=== PATIENT | female | born 1955 | race Caucasian/White ===

== ENCOUNTER 2019-07-25 01:19 | Outpatient (CLI) | payer BC, SELFPAY ==
[2019-07-24 16:24] VITALS: BMI 34.8
--- NOTE | ~2019-07-25 | BM_ITS ---
EXAMINATION: CCL bone marrow asp w bx diag DATE: 07/25/2019 11:04 INDICATION: Macrocytic anemia. TECHNIQUE: A time-out was performed to verify the patient's name, date of , and procedure to b e performed. The procedure including the risks, benefits, and alternatives was discussed with the pat ient. Risks discussed included bleeding and infection. The patient understood the risks and agreed to proceed. The skin overlying the right ilium was prepped and draped in usual sterile fashion. Anest hetic was administered with 1% lidocaine subcutaneously. Moderate sedation was achieved with 1 mg Liam sed IV and 50 mcg fentanyl IV. An 11 gauge needle was inserted into the ilium with fluoroscopic guid ance. Bone marrow was aspirated. An 8 gauge needle was then inserted into the ilium with fluoroscopic guidance. A core bone marrow biopsy was obtained. There were no immediate complications. Fluoroscopy exposure time was 0.0 minutes. The total number of images was 7. FINDINGS: Real-time fluoroscopy demonstrates a marker overlying the right posterior superior iliac sp ine. IMPRESSION: 1. Fluoro-guided bone marrow aspiration. 2. Fluoro-guided bone marrow core biopsy. Reviewed, dictated and finalized at location A. COMMUNICATIONS ENGINEER
[2019-07-25 09:10] LABS: Hemoglobin 8.6 g/dL (12.0-15.0); Mean Corpuscular HGB Conc 30.7 g/dl (32-36); Mean Corpuscular Hemoglobin 34.1 pg (26-34); Mean Corpuscular Volume 111.1 fl (80-100); Mean Platelet Volume 8.7 fl (7.4-10.4); Platelet Count Result 427 k/mm3 (150-375); Red Blood Count 2.52 M/mm3 (4.2-5.4); Red Cell Distribution Width 15.1 % (11.5-14.5); White Blood Count 6.1 K/mm3 (4.5-10.0)
[2019-07-25 09:27] LABS: INR 0.9; Prothrombin Time 11.8 Seconds (11.1-14.7)
[2019-07-25 10:07] VITALS: BP 121/51; PULSE 77; RESP 14; TEMP 37; O2SAT 99
--- NOTE | 2019-07-25 10:09 | WPDMODSED ---
Moderate Sedation Note-Pt Data Patient Data Diagnosis: Macrocytic anemia. Present Complaint: Macrocytic anemia. Procedure to be performed/Plan: Fluoro-guided bone marrow biopsy. Allergies Allergy/AdvReac Type Severity Reaction Status Date / Time iodine Allergy Unknown Unknown Verified 11/28/17 11:43 povidone Allergy Unknown Itching Verified 10/18/17 13:46 povidone-iodine Allergy Unknown Itching Verified 08/21/18 09:35 soap Allergy Unknown Itching Verified 10/18/17 13:46 Home Medications Medication Instructions Recorded Confirmed Type ascorbic acid (vitamin C) 1 g PO DAILY 07/22/19 07/24/19 History ferrous sulfate 324 mg PO DAILY 07/22/19 07/24/19 History lansoprazole 30 mg PO PRN PRN 07/22/19 07/24/19 History mv,Ca,ir,Zw-KE-plq-gel-ashley-PAB 3 cap PO DAILY 07/22/19 07/24/19 History [Body, Hair, Skin and Nails] Sedation/Anesthesia: No previous sedation/anesthesia problems (including family history). [facility] Family History Family History (Updated 12/03/17 @ 14:54 by DOCTOR UNKNOWN) Mother Patient's mother is Father Patient's father is , Onset Age: 97 Grandparent Family history of malignant neoplasm of breast in first degree relative Family history of malignant neoplasm Sibling Cerebrovascular accident Social History Social History Smoking status: Former smoker Second hand tobacco smoke exposure: No Smoking end date: 06/25/76 Alcohol intake: current Mod Sed Physical Exam Physical Exam Pre Procedural Exam: Normal: Lungs, Heart Rate, Heart Rhythm and Abdomen and Variation: Appearance (obese) and Airway (Mallampati class II.) Hours since solid foods: 12 Hours since liquid intake: 9 Internal Medicine - PN: Obj Da Vital Signs Vital Signs: Vital Signs - 24 hr 07/25/19 10:07 Temperature 37.0 C Pulse Rate 77 Respiratory Rate 14 Blood Pressure 121/51 L Pulse Oximetry 99 Labs CBC & Chem 7: 07/25/19 09:06 Labs: Laboratory Results - last 24 hr 07/25/19 07/25/19 09:06 09:06 WBC 6.1 RBC 2.52 L Hgb 8.6 L Hct 28.0 L MCV 111.1 H MCH 34.1 H MCHC 30.7 L RDW 15.1 H Plt Count 427 H MPV 8.7 PT 11.8 INR 0.9 ASA Classification/Sedation ASA Classification/Sedation ASA Class: II Emergent: No Risks: Risks, benefits and alternatives explained and patient/family accepted plan for sedation. Patient re-evaluated immediately prior to sedation.
[2019-07-25 10:40] VITALS: BP 120/68; PULSE 70; RESP 10; O2SAT 100
[2019-07-25 10:55] VITALS: BP 119/72; PULSE 68; RESP 16; O2SAT 100
[2019-07-25 11:10] VITALS: BP 115/64; PULSE 73; RESP 16
--- NOTE | 2019-07-25 11:48 | SUR.PHASEII ---
1120 pt discharged to home with , iv dc'd-cath tip intact, instructions reviewed with pt and , all questions answered, discharged home via wheelchair with to home.
== END 2019-07-25 01:20 | disposition home or self-care (01) ==
PROVIDERS: Radiology Diagnostic Radiology; PCP Internal Medicine; Referring Provider Internal Medicine Hematology & Oncology; Visit Provider Radiology Diagnostic Radiology
DX: D53.9 Nutritional anemia, unspecified (principal)
CPT/HCPCS: 36415; 38222; 85027; 85610; 88184; 88185; 88305; 88311; 88313; J2250; J3010; J7040

== ENCOUNTER 2019-08-29 09:24 | Outpatient (CLI) | payer BC, SELFPAY ==
--- NOTE | ~2019-08-29 | MR_ITS ---
EXAMINATION: MR knee LT wo con DATE: 08/29/2019 10:42 INDICATION: Internal derangement of the left knee presenting with anteromedial left knee pain. TECHNIQUE: Magnetic resonance imaging (MRI) of the left knee was performed without intravenous contra st. Sequences included coronal PD-weighted FSE, coronal PD-weighted FS FSE, sagittal T2-weighted FSE , sagittal PD-weighted FS FSE and axial PD weighted fat saturated FSE. COMPARISON: None. FINDINGS: Medial compartment: Medial meniscus is normal. Partial thickness cartilage loss along the anterior to central weightbeari ng medial femoral condyle with marrow edema along the medial rim which is more likely to represent rick ne contusion related to recent trauma rather than chondromalacia related subarticular edema. Lateral compartment: Small likely radial tear at the inner third of the lateral meniscal body. Partial-thickness cartilage loss with smooth chondral surface and without degenerative subchondral changes at the posterior weig htbearing lateral femoral condyle and lateral aspect of the lateral tibial plateau. This suggests is more preserved along the medial half of the lateral tibial plateau with partial-thickness along the m edial, central to posterior aspect of the lateral tibial plateau. Tiny focus of subarticular near the posterior rim. Patellofemoral compartment: Extensive severe cartilage loss along the patella with regions likely reaching full-thickness at the apical ridge and medial and lateral facets with scattered subarticular edema. Partial-thickness carti marito loss with smooth chondral surface along the lateral trochlea. Tiny focus of cortical irregularit y along the inferolateral aspect of the lateral trochlea. Small patellar marginal osteophytes are pre sent. Ligaments and tendons: Anterior and posterior cruciate ligaments are normal. Mild thickening of the proximal medial collater al ligament without significant surrounding edema to suggest acute injury this may represent mild sca rring related to chronic sprain. The fibular collateral ligament is normal. The extensor mechanism is normal. The visualized medial and lateral hamstring tendons as well as the iliotibial band are manas l. Fluid: Small amount of fluid in the lateral gutter of the suprapatellar pouch which remains within normal li mits. No loose osteochondral bodies identified. Osseous/other: Bone alignment is normal. No fracture or pathologic marrow replacing process. IMPRESSION: 1. Small radial tear at the body of the lateral meniscus. 2. Tricompartmental osteoarthritis, mild in the medial and lateral compartments and moderate severity in the patellofemoral compartment where there is extensive high-grade patellar chondromalacia. 3. Marrow edema along the medial side of the weightbearing medial femoral condyle and favor bone cont usion over chondromalacia related subarticular edema. 4. Thickening and mild increased signal of the proximal medial collateral ligament without surroundin g edema to suggest acute injury likely scarring related to chronic sprain. Reviewed, dictated and finalized at location A. ERY SACKER IMPRESSION: 1. Small radial tear at the body of the lateral meniscus. 2. Tricompartmental osteoarthritis, mild in the medial and lateral compartments and moderate severity in the patellofemoral compartment where there is extensi ve high-grade patellar chondromalacia. 3. Marrow edema along the medial side of the weightbearing medial femoral condy le and favor bone contusion over chondromalacia related subarticular edema. 4. Thickening and mild increased signal of the proximal medial collateral ligam ent without surrounding edema to suggest acute injury likely scarring related t o chronic sprain.
== END 2019-08-29 09:25 | disposition home or self-care (01) ==
LOC: ANHIMG 09:42
PROVIDERS: PCP Internal Medicine
DX: M17.12 Unilateral primary osteoarthritis, left knee (principal); S83.282A Other tear of lateral meniscus, current injury, left knee, initial encounter; X58.XXXA Exposure to other specified factors, initial encounter
CPT/HCPCS: 73721

== ENCOUNTER 2020-02-28 10:04 | Outpatient (CLI) | payer MEDICARE, BC, SELFPAY ==
--- NOTE | ~2020-02-28 | CT_ITS ---
EXAMINATION: CT abdomen pelvis w con DATE: 02/28/2020 10:42 INDICATION: Iron deficiency anemia TECHNIQUE: Computed tomography (CT) of the abdomen and pelvis was performed with 100 cc Omnipaque 350 intravenous contrast. Automated exposure control and iterative reconstruction technique were employe d. Exam dose: 949.63 mGy-cm total exam DLP. COMPARISON: 09/06/2018 CT abdomen pelvis FINDINGS: The lung bases are clear. Heart size normal. No pericardial or pleural effusion. Large hiatal hernia. Approximately 8 mm hepatic dome cyst. Approximately 1.7 cm hyperenhancing lesion of the posterior inferior aspect of the right hepatic lobe , likely a hemangioma. The gallbladder is present. No gallbladder wall thickening or pericholecystic fluid or stranding. No bile duct or pancreatic duct dilatation. No pancreatic mass lesion or calcification. Normal splenic size. Normal morphology of the glands. No evidence of a renal mass lesion. No urinary tract calculus or hydroureteronephrosis is detected. Normal caliber of the abdominal aorta. No intraperitoneal or retroperitoneal or pelvic mass lesion or adenopathy or ascites. The urinary bladder, uterus and adnexal areas are unremarkable. Normal appendix. There are numerous diverticula of the sigmoid and to a lesser extent descending colo n; no CT evidence of diverticulitis. No bowel obstruction, bowel wall thickening, pneumatosis or intr aperitoneal free air. Moderate anterior wedge chronic compression fracture deformity of T12. There is severe degenerative disc disease and mild retrolisthesis at L1-2. Moderately prominent degen erative disc disease and minimal retrolisthesis at L2-3. Severe degenerative disc disease at L5-S1. IMPRESSION: Large hiatal hernia 8 mm hepatic cyst Probable 1.7 cm hemangioma of right hepatic lobe Diverticulosis of the colon Reviewed, dictated and finalized at Location A. Reviewed, dictated and finalized at location A.
== END 2020-02-28 10:05 | disposition home or self-care (01) ==
PROVIDERS: PCP Internal Medicine; Visit Provider Internal Medicine Hematology & Oncology
DX: D50.9 Iron deficiency anemia, unspecified (principal); K44.9 Diaphragmatic hernia without obstruction or gangrene; K57.30 Diverticulosis of large intestine without perforation or abscess without bleeding
CPT/HCPCS: 74177; Q9967

== ENCOUNTER 2020-03-18 15:02 | Outpatient (CLI) | payer MEDICARE, BC, SELFPAY ==
--- NOTE | ~2020-03-18 | MM_ITS ---
EXAMINATION: MM screening konstantin BI w abhinav HISTORY: Screening mammogram TECHNIQUE: Craniocaudal and mediolateral oblique 3-D tomosynthesis images were obtained and synthetic 2-D images were generated. CAD analysis was submitted and interpreted. COMPARISON: 12/12/2018, 10/19/2017 bilateral digital screening mammogram examinations BREAST PARENCHYMAL COMPOSITION: There are scattered areas of fibroglandular density. FINDINGS: Stable mild fibroglandular asymmetry in the outer mid right breast since 12/12/2018 and 10/19. There is no evidence of suspicious mass, calcification, or architectural distortion to suggest malignancy in either breast. There has been no suspicious interval change. IMPRESSION: 1. No mammographic evidence of malignancy. 2. Recommend routine screening mammography in one year. BI-RADS Category 2: Benign finding(s). Reviewed, dictated and finalized at location A.
== END 2020-03-18 15:03 | disposition home or self-care (01) ==
PROVIDERS: PCP Internal Medicine; Visit Provider Student in an Organized Health Care Education/Training Program
DX: Z12.31 Encounter for screening mammogram for malignant neoplasm of breast (principal)
CPT/HCPCS: 77063; 77067

== ENCOUNTER 2020-04-13 15:31 | Outpatient (CLI) | payer MEDICARE, BC, SELFPAY ==
[2020-04-13 16:17] LABS: Hematocrit 28.8 % (37.0-47.0); Hemoglobin 8.9 g/dL (12.0-15.0); Mean Corpuscular HGB Conc 30.9 g/dl (32-36); Mean Corpuscular Hemoglobin 34.9 pg (26-34); Mean Corpuscular Volume 112.9 fl (80-100); Mean Platelet Volume 9.1 fl (7.4-10.4); Platelet Count Result 302 k/mm3 (150-375); Red Blood Count 2.55 M/mm3 (4.2-5.4); Red Cell Distribution Width 16.8 % (11.5-14.5)
[2020-04-13 16:25] LABS: Alanine Aminotransferase 19 U/L (4-35); Albumin Level 3.9 g/dL (3.5-5.1); Alkaline Phosphatase 108 U/L (38-126); Anion Gap 7 mmol/L (8-16); Aspartate Amino Transferase 30 U/L (14-36); Bilirubin,Total 0.6 mg/dL (0.2-1.3); Blood Urea Nitrogen 10 mg/dL (7-17); Calcium 9.3 mg/dL (8.4-10.2); Carbon Dioxide 25 mmol/L (22-30); Chloride 107 mmol/L (98-107); Cholesterol 154 mg/dL (0-200); Estimated Glomerular Filt Rate > 60; Glucose 93 mg/dL (65-105); HDL Direct 56 mg/dL; Potassium 4.3 mmol/L (3.4-5.0); Sodium 139 mmol/L (137-145); Triglycerides 256 mg/dL (<150)
[2020-04-13 16:36] LABS: LDL Cholesterol Direct 77 mg/dL
== END 2020-04-13 15:32 | disposition home or self-care (01) ==
LOC: ANHLAB 15:33
PROVIDERS: PCP Internal Medicine; Visit Provider Nurse Practitioner
DX: E78.5 Hyperlipidemia, unspecified (principal); I10 Essential (primary) hypertension
CPT/HCPCS: 36415; 80053; 80061; 85027

== ENCOUNTER 2020-08-26 16:56 | Outpatient (CLI) | payer MEDICARE, BC, SELFPAY | END 2020-08-26 16:57 | disposition home or self-care (01) | LOC: ANHCOVIDVC 16:57 | PROVIDERS: PCP Student in an Organized Health Care Education/Training Program | DX: Z23 Encounter for immunization (principal) | CPT/HCPCS: 0001A; 91300 ==

== ENCOUNTER 2020-09-16 16:46 | Outpatient (CLI) | payer MEDICARE, BC, SELFPAY | END 2020-09-16 16:47 | disposition home or self-care (01) | LOC: ANHCOVIDVC 16:46 | PROVIDERS: PCP Student in an Organized Health Care Education/Training Program | DX: Z23 Encounter for immunization (principal) | CPT/HCPCS: 0002A; 91300 ==

== ENCOUNTER 2020-11-17 11:26 | Outpatient (CLI) | payer MEDICARE, BC, SELFPAY ==
[2020-11-17 12:18] LABS: Cholesterol 219 mg/dL (0-200); HDL Direct 92 mg/dL; Triglycerides 133 mg/dL (<150)
[2020-11-17 12:28] LABS: LDL Cholesterol Direct 105 mg/dL
== END 2020-11-17 11:27 | disposition home or self-care (01) ==
LOC: ANHLAB 11:29
PROVIDERS: PCP Internal Medicine; Visit Provider Clinical Nurse Specialist
DX: E78.5 Hyperlipidemia, unspecified (principal)
CPT/HCPCS: 36415; 80061

== ENCOUNTER 2021-03-22 11:34 | Emergency (ER) | payer MEDICARE, BC, SELFPAY ==
[2021-03-22 11:40] VITALS: BP 110/78; PULSE 87; RESP 16; TEMP 36.3; O2SAT 97
--- NOTE | 2021-03-22 12:16 | ED.GENADULT ---
HPI - General Adult General Chief complaint: Upper Respiratory Infection Stated complaint: sore throat Source: patient Mode of arrival: ambulatory Limitations: no limitations History of Present Illness HPI narrative: Patient is a 65-year-old female who presents to the [facility] via POV for evaluation of a sore throat that has been present for 2 days. Additionally, she reports fatigue and white spots to the back of her throat. She states her throat pain is constant and dry . Tylenol improves pain and swallowing worsens symptoms. Patient reports she is fully vaccinated against Covid. She denies known exposure to sick contacts. Related Data Home Medications Medication Instructions Recorded Confirmed ascorbic acid (vitamin C) 1 g PO DAILY 07/22/19 01/20/21 apixaban [Eliquis] 5 mg PO BID 03/11/20 01/20/21 antiarthritic combination no.2 900 mg PO 04/02/20 01/20/21 mg tablet cholecalciferol (vitamin D3) 50 50 mcg PO DAILY 04/02/20 01/20/21 mcg (2,000 unit) capsule cyanocobalamin (vitamin B-12) 1,000 mcg PO DAILY 04/02/20 01/20/21 1,000 mcg capsule zinc acetate 50 mg (zinc) capsule 50 mg PO DAILY 04/02/20 01/20/21 ferrous sulfate 324 mg (65 mg 325 mg PO BID tablet 04/27/20 01/20/21 iron) tablet,delayed release metoprolol succinate 25 mg 50 mg PO DAILY tablet 04/27/20 01/20/21 tablet,extended release 24 hr acetaminophen 325 mg tablet 325 mg PO Q6H PRN 01/20/21 01/20/21 magnesium 250 mg tablet 250 mg PO DAILY 01/20/21 01/20/21 uvnwyjxl-jtq-kgftf ac 400 tablet PO 01/20/21 01/20/21 mcg-calcium carb 500 mg-vit K1 20 mcg tablet Allergies Allergy/AdvReac Type Severity Reaction Status Date / Time iodine Allergy Unknown Unknown Verified 04/15/20 14:11 povidone Allergy Unknown Itching Verified 04/15/20 14:11 povidone-iodine Allergy Unknown Itching Verified 04/15/20 14:11 soap Allergy Unknown Itching Verified 04/15/20 14:11 Review of Systems Review of Systems: Denies fever, chills, sweats, change in appetite, poor p.o. intake, weight loss, rhinorrhea, sinus problems, ear pain, drooling, difficulty swallowing, hoarseness, shortness of breath, cough, chest pain, heart palpitations, nausea, vomiting, diarrhea, and constipation Allergic/Immunologic: Comments: I have reviewed and agree with the patient's past medical, surgical, social, and family hx as documented by the RN. There is no relevant family history pertinent to the presenting complaint. [facility] Past Medical History Medical History Abnormal hemoglobin Alcohol abuse Atrial fibrillation GERD (gastroesophageal reflux disease) History of one miscarriage History of vaginal delivery x 4 Hyperlipidemia Hypertension Irregular heart beat Sleep apnea Surgical History Surgical History History of cataract surgery History of dilation and curettage History of tubal ligation Family History Family History Mother Patient's mother is Father Patient's father is , Onset Age: 97 Grandparent Family history of malignant neoplasm of breast in first degree relative Family history of malignant neoplasm Sibling Cerebrovascular accident Social History Social History Smoking status: Former smoker Second hand tobacco smoke exposure: No Smoking end date: 06/25/76 Alcohol intake: current Exam Narrative: GENERAL: Well-appearing, well-nourished, and in no acute distress. HEAD: Normocephalic, atraumatic. No sinus tenderness or facial swelling appreciated. EYES: PERRLA and EOMI. No evidence of erythema, swelling, or drainage. ENT: Bilateral external ears and ear canals normal. Bilateral TMs are normal.No TM perforation. Nares clear, no rhinorrhea or epistaxis. Bilateral turbinat
== END 2021-03-22 12:26 | disposition home or self-care (01) ==
PROVIDERS: Emergency Provider Nurse Practitioner Family; PCP Internal Medicine
DX: B37.0 Candidal stomatitis (principal); Z87.891 Personal history of nicotine dependence; I48.91 Unspecified atrial fibrillation; K21.9 Gastro-esophageal reflux disease without esophagitis; E78.5 Hyperlipidemia, unspecified; I10 Essential (primary) hypertension; G47.30 Sleep apnea, unspecified
CPT/HCPCS: 87081; 87880; 99213; G0463

== ENCOUNTER 2021-04-19 15:37 | Outpatient (CLI) | payer MEDICARE, BC, SELFPAY ==
--- NOTE | ~2021-04-19 | MM_ITS ---
EXAMINATION: MM screening konstantin BI w abhinav HISTORY: Screening mammogram TECHNIQUE: Craniocaudal and mediolateral oblique 3-D tomosynthesis images were obtained and synthetic 2-D images were generated. CAD analysis was submitted and interpreted. COMPARISON: No prior mammogram is available for comparison at this institution. BREAST PARENCHYMAL COMPOSITION: The breasts are almost entirely fatty. FINDINGS: There is no evidence of suspicious mass, calcification, or architectural distortion to sugg est malignancy in either breast. There has been no suspicious interval change. IMPRESSION: 1. No mammographic evidence of malignancy. 2. Recommend routine screening mammography in one year. BI-RADS Category 1: Negative Reviewed, dictated and finalized at location A.
== END 2021-04-19 15:38 | disposition home or self-care (01) ==
LOC: ANHIMG 15:39
PROVIDERS: PCP Internal Medicine; Visit Provider Student in an Organized Health Care Education/Training Program
DX: Z12.31 Encounter for screening mammogram for malignant neoplasm of breast (principal)
CPT/HCPCS: 77063; 77067

== ENCOUNTER 2021-05-09 10:12 | Outpatient (CLI) | payer MEDICARE, BC, SELFPAY ==
[2021-05-09 11:20] LABS: Alanine Aminotransferase 29 U/L (4-35); Albumin Level 4.4 g/dL (3.5-5.1); Alkaline Phosphatase 107 U/L (38-126); Anion Gap 10 mmol/L (8-16); Aspartate Amino Transferase 34 U/L (14-36); Bilirubin,Total 1.8 mg/dL (0.2-1.3); Blood Urea Nitrogen 16 mg/dL (7-17); Calcium 9.9 mg/dL (8.4-10.2); Carbon Dioxide 23 mmol/L (22-30); Chloride 104 mmol/L (98-107); Cholesterol 231 mg/dL (0-200); Estimated Glomerular Filt Rate > 60; Glucose 99 mg/dL (65-110); HDL Direct 92 mg/dL; Magnesium 2.1 mg/dL (1.6-2.3); Sodium 137 mmol/L (137-145); Triglycerides 141 mg/dL (<150)
[2021-05-09 11:26] LABS: Basophils Absolute Auto 0.1 K/mm3 (0.0-0.1); Basophils Percent Auto 1.2 % (0.2-1.2); Eosinophils Absolute Auto 0.1 K/mm3 (0-0.3); Eosinophils Percent Auto 2.3 % (0-4.4); Hematocrit 41.3 % (37.0-47.0); Hemoglobin 13.2 g/dL (12.0-15.0); Immature Granulocyte Absolute 0.02 K/mm3 (0.00-0.031); Immature Granulocyte Percent A 0.4 % (0-0.5); Lymphocytes Absolute Auto 1.22 K/mm3 (0.9-3.2); Lymphocytes Percent Auto 23.4 % (18.3-44.2); Mean Corpuscular Hemoglobin 29.1 pg (26-34); Mean Corpuscular Volume 91.2 fl (80-100); Mean Platelet Volume 9.5 fl (7.4-10.4); Monocytes Absolute Auto 0.7 K/mm3 (0.1-0.6); Monocytes Percent Auto 13.4 % (2.6-8.5); Neutrophils Absolute Auto 3.1 K/mm3 (1.3-6.7); Neutrophils Percent Auto 59.3 % (45.5-73.1); Platelet Count Result 242 k/mm3 (150-375); Red Blood Count 4.53 M/mm3 (4.2-5.4); Red Cell Distribution Width 16.5 % (11.5-14.5); White Blood Count 5.2 K/mm3 (4.5-10.0)
[2021-05-09 11:31] LABS: LDL Cholesterol Direct 113 mg/dL
[2021-05-09 11:34] LABS: Vitamin D 25 Hydroxy 42.9 ng/mL
[2021-05-09 12:11] LABS: Vitamin B12 > 1000.0 pg/mL (239-931)
== END 2021-05-09 10:13 | disposition home or self-care (01) ==
PROVIDERS: PCP Internal Medicine; Visit Provider Clinical Nurse Specialist
DX: D50.9 Iron deficiency anemia, unspecified (principal); E78.2 Mixed hyperlipidemia; R53.83 Other fatigue; E53.8 Deficiency of other specified B group vitamins; E55.9 Vitamin D deficiency, unspecified
CPT/HCPCS: 36415; 80053; 80061; 82306; 82607; 83735; 84443; 85025

== ENCOUNTER 2021-05-26 13:59 | Outpatient (CLI) | payer MEDICARE, BC, SELFPAY ==
--- NOTE | ~2021-05-26 | DEXA_ITS ---
Bone Density Report Name: Marie Pulliam Age: 65 Sex: Female Ethnicity: White Date of : 1955 Indication: postmenopausal; height loss; prior fracture; Referring Provider: Bruna Solis Study: Bone densitometry was performed. Exam Date: May 26, 2021 Accession number: [id number] Bone Density: Region BMD T-score Z-score Classification AP Spine (L1-L4) 1.011 -0.3 1.5 Normal Femoral Neck (Left) 0.590 -2.3 -0.7 Osteopenia Total Hip (Left) 0.693 -2.0 -0.7 Osteopenia Total Hip Bilateral Avg 0.743 -1.6 -0.3 Osteopenia Femoral Neck (Right) 0.600 -2.2 -0.7 Osteopenia Total Hip (Right) 0.792 -1.2 0.1 Osteopenia World Health Organization criteria for BMD impression classify patients as: Normal (T-score at or above -1.0), Osteopenia (T-score between -1.0 and -2.5), or Osteoporosis (T-score at or below -2.5). 10-year Fracture Risk: FRAX not reported because: Prior hip or vertebral fracture Previous Exams: Region Exam Age BMD T-score BMD Change BMD Change Date g/cm2 vs Baseline vs Previous AP Spine(L1-L4) 05/26/2021 65 1.011 -0.3 -0.107(-9.6%)# -0.066(-6.2%)# 12/16/2018 63 1.077 0.3 -0.040(-3.6%)# -0.102(-8.6%)# 09/29/2010 54 1.179 1.2 0.061(5.5%)* 0.061(5.5%)* 03/13/2006 50 1.117 0.6 Total Hip(Left) 05/26/2021 65 0.693 -2.0 -0.281(-28.8%) -0.174(-20.1%) 12/16/2018 63 0.867 -0.6 -0.106(-10.9%) -0.094(-9.8%)# 09/29/2010 54 0.960 0.2 -0.013(-1.3%) -0.013(-1.3%) 03/13/2006 50 0.973 0.3 Total Hip(Right) 05/26/2021 65 0.792 -1.2 -0.160(-16.8%) -0.077(-8.8%)# 12/16/2018 63 0.869 -0.6 -0.083(-8.7%)# -0.034(-3.8%)# 09/29/2010 54 0.903 -0.3 -0.049(-5.2%)* -0.049(-5.2%)* 03/13/2006 50 0.952 0.1 *Denotes significance at 95% confidence level, LSC for AP Spine = 0.022 g/cm2, LSC for Total Hip = 0.027 g/cm2 Clinical Information Provided by Patient: Have had a previous hip or vertebral fracture Has had a low trauma fracture Has used the following medications: Vitamin D, Calcium Patient maximum height was 65.5 Menopause Age: 54 No regular weight bearing exercise Onset of menses at age 10 Number of children 4 Impression: The patient has low bone mass, based on the Left Femoral Neck T-score. The patient has risk factors, including: previous fracture. No significant bone loss was observed. Discussion: INCREASED RISK OF FRACTURE DUE TO HISTORY OF FRACTURE. The patient's previous fracture pu
== END 2021-05-26 14:00 | disposition home or self-care (01) ==
LOC: ANHIMG 14:01
PROVIDERS: PCP Internal Medicine; Visit Provider Student in an Organized Health Care Education/Training Program
DX: Z78.0 Asymptomatic menopausal state (principal); M85.852 Other specified disorders of bone density and structure, left thigh; M85.851 Other specified disorders of bone density and structure, right thigh
CPT/HCPCS: 77080

== ENCOUNTER 2021-06-30 16:02 | Outpatient (CLI) | payer MEDICARE, BC, SELFPAY ==
[2021-06-30 16:43] LABS: Alanine Aminotransferase 22 U/L (4-35); Albumin Level 4.4 g/dL (3.5-5.1); Alkaline Phosphatase 101 U/L (38-126); Anion Gap 9 mmol/L (8-16); Aspartate Amino Transferase 32 U/L (14-36); Bilirubin,Total 0.7 mg/dL (0.2-1.3); Blood Urea Nitrogen 12 mg/dL (7-17); Calcium 9.8 mg/dL (8.4-10.2); Carbon Dioxide 26 mmol/L (22-30); Chloride 106 mmol/L (98-107); Estimated Glomerular Filt Rate > 60; Glucose 92 mg/dL (65-110); Potassium 3.8 mmol/L (3.4-5.0); Sodium 141 mmol/L (137-145)
== END 2021-06-30 16:03 | disposition home or self-care (01) ==
LOC: ANHLAB 16:07
PROVIDERS: PCP Internal Medicine; Visit Provider Clinical Nurse Specialist
DX: R17 Unspecified jaundice (principal)
CPT/HCPCS: 36415; 80053

== ENCOUNTER 2021-08-31 12:08 | Outpatient (CLI) | payer MEDICARE, BC, SELFPAY ==
--- NOTE | ~2021-08-31 | XR_ITS ---
EXAMINATION: XR lumbar spine 2-3V DATE: 08/31/2021 12:40 INDICATION: Low back pain with sciatica TECHNIQUE: Anteroposterior and lateral views of the lumbar spine, and cone-down lateral view of the l umbosacral junction were obtained. COMPARISON: 01/29/2017 FINDINGS: There are 13 degrees of thoracolumbar levoscoliosis. There is no fracture of the lumbar spi ne. A chronic T12 compression fracture is unchanged. There is unchanged severe loss of intervertebral disc space height at L5-S1. There is mild loss of intervertebral disc space height at L1-2 and L2-3. The lumbar vertebral body heights are maintained. There is moderate to severe facet osteoarthritis o f the lumbar spine. IMPRESSION: 1. Severe lumbar spondylosis without acute findings or significant interval change. 2. Unchanged T12 compression fracture. Reviewed, dictated and finalized at location B. GAGE BROKER IMPRESSION: 1. Severe lumbar spondylosis without acute findings or significant interval jessica nge. 2. Unchanged T12 compression fracture.
== END 2021-08-31 12:09 | disposition home or self-care (01) ==
LOC: ANHIMG 12:14
PROVIDERS: PCP Internal Medicine; Visit Provider Clinical Nurse Specialist
DX: S22.081A Stable burst fracture of T11-T12 vertebra, initial encounter for closed fracture (principal); M47.817 Spondylosis without myelopathy or radiculopathy, lumbosacral region
CPT/HCPCS: 72100

== ENCOUNTER 2021-09-07 19:42 | Inpatient (IN) | payer MEDICARE, BC, SELFPAY ==
--- NOTE | ~2021-09-07 | XR_ITS ---
XR chest 1V DATE: 09/07/2021 20:11 INDICATION: Preoperative evaluation. Left hip fracture. TECHNIQUE: Supine AP view COMPARISON: None FINDINGS: Heart size appears at upper limits of normal. There is a large hiatal hernia. No pulmonary infiltrate or consolidation, pleural effusion or pulmonary vascular congestion or pneumo thorax is detected. IMPRESSION: No active pulmonary disease Large hiatal hernia Reviewed, dictated and finalized at location A.
--- NOTE | ~2021-09-07 | XR_ITS ---
XR hip LT 2V w AP pelvis DATE: 09/07/2021 20:11 INDICATION: Fall. Left hip deformity. TECHNIQUE: AP pelvis. AP and crosstable lateral views of left hip COMPARISON: None FINDINGS: There is a comminuted intertrochanteric fracture of left femur with varus deformity. The pubic symphysis and sacroiliac joints are intact. No pelvic fracture or bone destruction. Right h ip appears unremarkable. Levoscoliosis and degenerative change of the lumbar spine. IMPRESSION: Comminuted intertrochanteric fracture of left femur Reviewed, dictated and finalized at location A.
--- NOTE | ~2021-09-07 | XR_ITS ---
XR surgery orthopedic DATE: 09/08/2021 19:27 INDICATION: ORIF left intertrochanteric hip fracture TECHNIQUE: 5 spot C-arm images of left hip and leg 742.3 seconds fluoroscopy time 345.52 mGy COMPARISON: 09/07/2021 left hip FINDINGS: A long maryam is placed into the femoral shaft, with interlocking compression screw device ext ending into the femoral head, providing internal fixation for the previously reported comminuted intr atrochanteric fracture of the left hip. Status post left knee arthroplasty. IMPRESSION: ORIF left intertrochanteric hip fracture Prior left total knee arthroplasty Reviewed, dictated and finalized at Location [facility]. Reviewed, dictated and finalized at location A.
[2021-09-07 19:44] VITALS: BP 143/85; PULSE 70; RESP 16; TEMP 36.2; O2SAT 99
--- NOTE | 2021-09-07 19:57 | ECG_ITS ---
Measurements Intervals [place] Rate: 76 P: 51 SD: 156 QRS: 62 QRSD: 84 T: 57 QT: 377 QTc: 425 Interpretive Statements SINUS RHYTHM NO PREVIOUS ECG AVAILABLE FOR COMPARISON Electronically Signed On 09-07-2021 20:31:11 CDT by Edilma Mccain M.D.
[2021-09-07] MEDS: KETOROLAC 30 MG/ML VIAL (*BKC) IV PUSH (20:14)
[2021-09-07] MEDS: SODIUM CHLORIDE 0.9% IV 1,000 ML 150 ML IV CONT (20:14)
[2021-09-07] MEDS: MORPHINE SULFATE (*CRX) 4 MG/ML INJ IV PUSH (20:14)
[2021-09-07 20:27] LABS: Basophils Absolute Auto 0.1 K/mm3 (0.0-0.1); Basophils Percent Auto 0.9 % (0.2-1.2); Eosinophils Absolute Auto 0.1 K/mm3 (0-0.3); Eosinophils Percent Auto 1.3 % (0-4.4); Hematocrit 37.9 % (37.0-47.0); Hemoglobin 11.8 g/dL (12.0-15.0); Immature Granulocyte Absolute 0.04 K/mm3 (0.00-0.031); Immature Granulocyte Percent A 0.5 % (0-0.5); Lymphocytes Absolute Auto 0.81 K/mm3 (0.9-3.2); Lymphocytes Percent Auto 10.7 % (18.3-44.2); Mean Corpuscular HGB Conc 31.1 g/dl (32-36); Mean Corpuscular Hemoglobin 30.6 pg (26-34); Mean Corpuscular Volume 98.4 fl (80-100); Mean Platelet Volume 9.4 fl (7.4-10.4); Monocytes Absolute Auto 0.6 K/mm3 (0.1-0.6); Neutrophils Percent Auto 78.6 % (45.5-73.1); Platelet Count Result 220 k/mm3 (150-375); Red Blood Count 3.85 M/mm3 (4.2-5.4); Red Cell Distribution Width 16.6 % (11.5-14.5); White Blood Count 7.6 K/mm3 (4.5-10.0)
[2021-09-07 20:40] LABS: Alanine Aminotransferase 24 U/L (4-35); Albumin Level 4.3 g/dL (3.5-5.1); Alkaline Phosphatase 106 U/L (38-126); Anion Gap 11 mmol/L (8-16); Aspartate Amino Transferase 45 U/L (14-36); Bilirubin,Total 0.5 mg/dL (0.2-1.3); Blood Urea Nitrogen 20 mg/dL (7-17); Calcium 9.4 mg/dL (8.4-10.2); Carbon Dioxide 21 mmol/L (22-30); Chloride 105 mmol/L (98-107); Estimated CRCL calculation 65 ml/min; Estimated Glomerular Filt Rate > 60; Glucose 113 mg/dL (65-110); Sodium 137 mmol/L (137-145)
[2021-09-07 20:43] LABS: Prothrombin Time 12.8 Seconds (11.1-14.7)
--- NOTE | 2021-09-07 21:13 | ED.LOWEXIN ---
HPI - Extremity Injury (Lower) General Chief Complaint: Extremity Injury, Lower Stated Complaint: GLF OUTWARD ROTATION AND SHORTENING LEFT HIP Time Seen by Provider: 09/07/21 19:51 Source: patient Mode of arrival: EMS Limitations: no limitations History of Present Illness HPI Narrative: 65-year-old with a history of A. fib on Eliquis here with complaints of left hip pain. Patient states that she was trying to turn the lights on and lost her balance fell on her left hip. She denies head and neck injuries. She states that she is taking her Eliquis this morning. complaint: hip injury Onset (ago): hour(s) (1) Injury: Left: hip Type of Injury: other (fall) Place: home Severity: moderate Relieving factors: immobilization Exacerbating factors: weight bearing and movement Context: fall Other symptoms: none Related Data Home Medications Medication Instructions Recorded Confirmed apixaban [Eliquis] 5 mg PO BID 03/11/20 08/29/21 cholecalciferol (vitamin D3) 50 50 mcg PO DAILY 04/02/20 08/29/21 mcg (2,000 unit) capsule cyanocobalamin (vitamin B-12) 1,000 mcg PO DAILY 04/02/20 08/29/21 1,000 mcg capsule ferrous sulfate 324 mg (65 mg 325 mg PO DAILY tablet 04/27/20 08/29/21 iron) tablet,delayed release magnesium 250 mg tablet 250 mg PO DAILY 01/20/21 08/29/21 gahcgony-cun-qstst ac 400 tablet PO 01/20/21 08/29/21 mcg-calcium carb 500 mg-vit K1 20 mcg tablet acetaminophen 500 mg tablet 500 mg PO Q6H PRN 08/29/21 08/29/21 ascorbic acid (vitamin C) 500 mg 500 mg PO DAILY 08/29/21 08/29/21 tablet Allergies Allergy/AdvReac Type Severity Reaction Status Date / Time iodine Allergy Unknown Unknown Verified 04/21/21 13:52 povidone Allergy Unknown Itching Verified 04/21/21 13:52 povidone-iodine Allergy Unknown Itching Verified 04/21/21 13:52 soap Allergy Unknown Itching Verified 04/21/21 13:52 Review of Systems Review of Systems: All systems reviewed & are unremarkable except as noted in HPI and below Constitutional: Constitutional: Reports no additional constitutional complaints Eyes: Eyes: Reports no additional eye complaints ENT: Reports system reviewed and no additional complaints, except as documented Cardiovascular: Cardiovascular: Reports no additional cardiovascular complaints Respiratory: Respiratory: Reports no additional respiratory complaints Gastrointestinal: Gastrointestinal: Reports no additional gastrointestinal complaints Musculoskeletal: Musculoskeletal: Reports as per HPI Neurologic: Reports system reviewed and no additional complaints, except as documented PMF Past Medical History Medical History Abnormal hemoglobin Alcohol abuse Atrial fibrillation GERD (gastroesophageal reflux disease) History of one miscarriage History of vaginal delivery x 4 Hyperlipidemia Hypertension Irregular heart beat Sleep apnea Surgical History Surgical History History of cataract surgery History of dilation and curettage History of knee replacement, total Lft knee 02/03/21 History of tubal ligation Family History Family History Mother Patient's mother is Father Patient's father is , Onset Age: 97 Grandparent Family history of malignant neoplasm of breast in first degree relative Family history of malignant neoplasm Sibling Cerebrovascular accident Social History Social History Smoking status: Never smoker Second hand tobacco smoke exposure: No Smoking end date: 06/25/76 Alcohol intake: current Exam Narrative: GENERAL: Well-appearing, well-nourished, and in no acute distress. HEAD: Normocephalic, atraumatic. EYES: PERRLA and EOMI. NECK: Supple. CHEST: Clear to auscultation. No respiratory distress. HEART: Regular rate
[2021-09-07 21:37] VITALS: BP 117/65; PULSE 77; RESP 18; O2SAT 99
[2021-09-07 22:09] VITALS: BP 100/57; PULSE 80; RESP 16; O2SAT 95
--- NOTE | 2021-09-07 22:29 | ADMGEN ---
This patient, Marie Pulliam, was admitted to Medical Room 349-01. Patient/family oriented to hospital policies and general routines including ID bracelet, bed and alarms, visiting hours, pain management, procedures, bathroom and other care routines, personal items, smoking policy, room service/diet, and visiting hours. Information on how to activate the Rapid Response Team has been discussed. Patient/Family are encouraged to report perceived risks to care and to ask questions if they do not understand what they are told or what they should do.
[2021-09-07 22:30] VITALS: BP 148/70; PULSE 76; RESP 18; TEMP 36.6; O2SAT 98; BMI 36.3
[2021-09-07] MEDS: SODIUM CHLORIDE 0.9% IV 1,000 ML 75 ML IV CONT (22:44)
--- NOTE | 2021-09-07 22:46 | PM.IMHP ---
H&P: HPI History of Present Illness Date/Time: 09/07/21 22:46 Chief Complaint: Hip fracture. Narrative: This is a 65-year-old female with past medical history significant for dyslipidemia, iron deficiency anemia, gastroesophageal reflux disease, atrial fibrillation. Patient presents to the emergency room via EMS after she suffered a fall at home mechanical ground level with no loss of consciousness however patient was not able to get up on her own who was present call 911. In emergency room patient was found to have a left hip fracture. Patient has been in her usual state of health denies any fevers, chills ,rigors ,cough, sputum production, chest pain, shortness of breath, leg swelling, palpitations, syncope ,near syncope, or lightheadedness no nausea, no vomiting, no diarrhea ,no abdominal pain. Patient has been admitted for further evaluation, management and treatment. Review of Systems Review of Systems: Fall, left hip pain. Constitutional: Constitutional: Denies chills, Denies fatigue, Denies fever(s), Denies lethargy, Denies malaise, Denies night sweats and Denies weakness Eyes: Eyes: Denies change in vision ENT: Denies dysphagia, Denies vertigo, Denies dizziness, Denies nasal congestion, Denies nasal discharge, Denies nasal obstruction and Denies odynophagia Cardiovascular: Cardiovascular: Denies irregular heart rhythm, Denies claudication, Denies leg ulcers, Denies leg edema, Denies lightheadedness, Denies radiating jaw, neck or arm pain, Denies palpitations, Denies dyspnea, Denies dyspnea on exertion and Denies orthopnea Respiratory: Respiratory: Denies cough and Denies dyspnea Gastrointestinal: Gastrointestinal: Denies abdominal pain, Denies dyspepsia, Denies heartburn, Denies diarrhea, Denies nausea and Denies vomiting Genitourinary: Genitourinary: Denies dysuria and Denies flank pain Musculoskeletal: Musculoskeletal: Reports arthralgias and Reports limited range of motion Comments: Left hip Integumentary/Breasts: Skin/Breast: Denies rash Neurologic: Denies focal weakness and Denies Sensory deficit (Neuro) Psychiatric: Psychiatric: Reports no additional psychiatric complaints and Reports as per HPI Endocrine: Endocrine: Denies cold intolerance, Denies heat intolerance, Denies polyphagia, Denies polydipsia, Denies polyuria and Denies palpitations Hematologic/Lymphatic: Hematologic/Lymphatic: Reports no additional hematologic/lymphatic complaints and Reports as per HPI Allergic/Immunologic: Allergic/Immunologic: Reports no additional allergic/immunologic complaints and Reports as per HPI [facility] Past Medical History Medical History (Updated 09/08/21 @ 05:01 by Dwayne Ledesma MD) Abnormal hemoglobin Alcohol abuse Atrial fibrillation GERD (gastroesophageal reflux disease) History of one miscarriage History of vaginal delivery x 4 Hyperlipidemia Hypertension Irregular heart beat Sleep apnea Surgical History Surgical History History of cataract surgery History of dilation and curettage History of knee replacement, total Lft knee 02/03/21 History of tubal ligation Family History Family History Mother Patient's mother is Father Patient's father is , Onset Age: 97 Grandparent Family history of malignant neoplasm of breast in first degree relative Family history of malignant neoplasm Sibling Cerebrovascular accident Social History Social History Smoking packs per day: 0.5 Smoking cigarettes per day: 10.0 Years smoked: 2 Smoking pack-years: 1.00 Smoking status: Former smoker Tobacco type: cigarettes Second hand tobacco smoke exposure: No Smoking end date: 06/25/79 Drinks per week: 21 Substance use: never Substance use type: does not use Spiritual care concerns: No
[2021-09-08] VITALS (16 sets, daily range): BP systolic 106–134; BP diastolic 54–83; PULSE 76–86; RESP 13–24; TEMP 36.1–36.9; O2SAT 94–100
[2021-09-08] MEDS: MORPHINE SULFATE (*CRX) 4 MG/ML INJ IV PUSH ×4 (00:14→06:14)
[2021-09-08] MEDS: ACETAMINOPHEN 325 MG TABLET 650 MG PO (02:13)
[2021-09-08 06:21] LABS: Anion Gap 4 mmol/L (8-16); Blood Urea Nitrogen 18 mg/dL (7-17); Calcium 7.1 mg/dL (8.4-10.2); Carbon Dioxide 21 mmol/L (22-30); Chloride 112 mmol/L (98-107); Estimated CRCL calculation 88 ml/min; Estimated Glomerular Filt Rate > 60; Glucose 85 mg/dL (65-110); Sodium 137 mmol/L (137-145)
[2021-09-08] MEDS: CYCLOBENZAPRINE HCL 5 MG TABLET PO (07:12)
[2021-09-08] MEDS: SODIUM CHLORIDE 0.9% IV 1,000 ML 75 ML IV CONT (07:14)
[2021-09-08] MEDS: HYDROmorphone HCL INJ (*CRX) 1 MG/ML SYR IV PUSH (09:15)
--- NOTE | 2021-09-08 09:45 | PM.IMPN ---
Progress Note: A&P Assessment and Plan (1) Fall: Code(s): W19.XXXA - Unspecified fall, initial encounter Status: Acute Assessment and Plan: Mechanical fall Hip xray: Comminuted intertrochanteric fracture of left femur Ortho consulted thank you for your help Pain management: dilaudid 1mg IV Q2hr, Toradol 30mg IV Q6h NPO for now It looks like she is on eliquis, and last dose was 09/07/21 in the am Probable surgical intervention today Fall precautions (2) Closed hip fracture: Qualifiers: Encounter type: initial encounter Laterality: left Qualified Code(s): S72.002A - Fracture of unspecified part of neck of left femur, initial encounter for closed fracture Code(s): S72.009A - Fracture of unspecified part of neck of unspecified femur, initial encounter for closed fracture Status: Acute Assessment and Plan: Bed rest Mechanical fall Hip xray: Comminuted intertrochanteric fracture of left femur Ortho consulted thank you for your help Pain management: dilaudid 1mg IV Q2hr, Toradol 30mg IV Q6h NPO for now It looks like she is on eliquis Fall precautions Pain management (3) Atrial fibrillation: Qualifiers: Atrial fibrillation type: paroxysmal Qualified Code(s): I48.0 - Paroxysmal atrial fibrillation Code(s): I48.91 - Unspecified atrial fibrillation Status: Acute Assessment and Plan: Rate controlled and anticoagulated (4) GERD (gastroesophageal reflux disease): Code(s): K21.9 - Gastro-esophageal reflux disease without esophagitis Status: Inactive Assessment and Plan: PPI as needed (5) Anemia: Qualifiers: Anemia type: iron deficiency Iron deficiency anemia type: unspecified iron deficiency Qualified Code(s): D50.9 - Iron deficiency anemia, unspecified Code(s): D64.9 - Anemia, unspecified Status: Acute Assessment and Plan: Chronic iron deficient anemia H/H stable Continue iron when able to take PO Trend labs (6) Hyperlipidemia: Qualifiers: Hyperlipidemia type: mixed hyperlipidemia Qualified Code(s): E78.2 - Mixed hyperlipidemia Code(s): E78.5 - Hyperlipidemia, unspecified Status: Acute Assessment and Plan: Continue home medications Time Spent With Patient Time with patient: Greater than 35 minutes Subjective Date/time seen: 09/08/21 09:45 Interval history: Date/Time: 09/07/21 22:46 Narrative: This is a 65-year-old female with past medical history significant for dyslipidemia, iron deficiency anemia, gastroesophageal reflux disease, atrial fibrillation. Patient presents to the emergency room via EMS after she suffered a fall at home mechanical ground level with no loss of consciousness however patient was not able to get up on her own who was present call 911. In emergency room patient was found to have a left hip fracture. Patient has been in her usual state of health denies any fevers, chills ,rigors ,cough, sputum production, chest pain, shortness of breath, leg swelling, palpitations, syncope ,near syncope, or lightheadedness no nausea, no vomiting, no diarrhea ,no abdominal pain. Patient has been admitted for further evaluation, management and treatment. Date/Time 09/08/21 0945 Patient was on the bedpan when I went in to evaluate her. Patient stated that she is just a whole lot of pain and rates her pain at current 8/10. Patient states that the pain medicine is helping. She stated that she has been kind of weak and fatigued and she has not slept all night. She denies any chest pain, shortness of breath, nausea, vomiting, diarrhea. Patient does state that she has a bit of constipation however she is passing gas. She reports that she took her last dose of Eliquis yesterday morning. I spoke with Renee from Ortho said that the patient could possibly go down toda
--- NOTE | 2021-09-08 09:45 | P.PNIM_ITS ---
Progress Note: A&P Assessment and Plan (1) Fall: Code(s): W19.XXXA - Unspecified fall, initial encounter Status: Acute Assessment and Plan: * Mechanical fall * Hip xray: Comminuted intertrochanteric fracture of left femur * Ortho consulted thank you for your help * Pain management: dilaudid 1mg IV Q2hr, Toradol 30mg IV Q6h * NPO for now * It looks like she is on eliquis, and last dose was 09/07/21 in the am * Probable surgical intervention today * Fall precautions (2) Closed hip fracture: Qualifiers: Encounter type: initial encounter Laterality: left Qualified Code(s): S72.002A - Fracture of unspecified part of neck of left femur, initial encounter for closed fracture Code(s): S72.009A - Fracture of unspecified part of neck of unspecified femur, initial encounter for closed fracture Status: Acute Assessment and Plan: * Bed rest * Mechanical fall * Hip xray: Comminuted intertrochanteric fracture of left femur * Ortho consulted thank you for your help * Pain management: dilaudid 1mg IV Q2hr, Toradol 30mg IV Q6h * NPO for now * It looks like she is on eliquis * Fall precautions * Pain management (3) Atrial fibrillation: Qualifiers: Atrial fibrillation type: paroxysmal Qualified Code(s): I48.0 - Paroxysmal atrial fibrillation Code(s): I48.91 - Unspecified atrial fibrillation Status: Acute Assessment and Plan: * Rate controlled and anticoagulated (4) GERD (gastroesophageal reflux disease): Code(s): K21.9 - Gastro-esophageal reflux disease without esophagitis Status: Inactive Assessment and Plan: * PPI as needed (5) Anemia: Qualifiers: Anemia type: iron deficiency Iron deficiency anemia type: unspecified iron deficiency Qualified Code(s): D50.9 - Iron deficiency anemia, unspecified Code(s): D64.9 - Anemia, unspecified Status: Acute Assessment and Plan: * Chronic iron deficient anemia * H/H stable * Continue iron when able to take PO * Trend labs (6) Hyperlipidemia: Qualifiers: Hyperlipidemia type: mixed hyperlipidemia Qualified Code(s): E78.2 - Mixed hyperlipidemia Code(s): E78.5 - Hyperlipidemia, unspecified Status: Acute Assessment and Plan: * Continue home medications Time Spent With Patient Time with patient: Greater than 35 minutes Subjective Date/time seen: 09/08/21 09:45 Interval history: Date/Time: 09/07/21 22:46 Narrative: This is a 65-year-old female with past medical history significant for dyslipidemia, iron deficiency anemia, gastroesophageal reflux disease, atrial fibrillation. Patient presents to the emergency room via EMS after she suffered a fall at home mechanical ground level with no loss of consciousness however patient was not able to get up on her own who was present call 911. In emergency room patient was found to have a left hip fracture. Patient has been in her usual state of health denies any fevers, chills ,rigors ,cough, sputum production, chest pain, shortness of breath, leg swelling, palpitations, syncope ,near syncope, or lightheadedness no nausea, no vomiting, no diarrhea ,no abdominal pain. Patient has been admitted for further evaluation, management and treatment. Date/Time 09/08/21 3604 Patient was on the bedpan when I went in to evaluate her. Patient stated that she is just
[2021-09-08] MEDS: diazePAM INJ (*CRX) 10 MG/2 ML SYRINGE 5 MG IV PUSH (09:52)
--- NOTE | 2021-09-08 10:24 | PM.CNOR ---
Assessment and Plan Assessment and plan (1) Closed hip fracture: Qualifiers: Encounter type: initial encounter Laterality: left Qualified Code(s): S72.002A - Fracture of unspecified part of neck of left femur, initial encounter for closed fracture Code(s): S72.009A - Fracture of unspecified part of neck of unspecified femur, initial encounter for closed fracture Status: Acute Assessment and Plan: 65-year-old female admitted status post fall which resulted in a left comminuted intertrochanteric fracture. Patient is usually independent. She lives at home with her . The fracture type and injury as well as radiographs discussed with the patient and family. Operative and nonoperative treatment options reviewed. The patients questions were answered. The patient desires operative treatment. Discussed left IT nail Risks of surgery including but not limited to neurovascular damage, wound complications, blood clot, pulmonary embolus, stroke, myocardial infarction, anesthetic risks up to and including were reviewed. Continued pain and possible dysfunction were explained. No guarantees were offered. The patient understands and wishes to proceed. Plan: Left IT Nail by Dr. Isabel Bedrest in the interim. Pain control. Hold blood thinner. Ice. NPO. (2) Atrial fibrillation: Qualifiers: Atrial fibrillation type: paroxysmal Qualified Code(s): I48.0 - Paroxysmal atrial fibrillation Code(s): I48.91 - Unspecified atrial fibrillation Status: Acute Assessment and Plan: Patient is currently on Eliquis. Last dose was yesterday morning. Risk of bleeding with surgical intervention reviewed. (3) Low bone mass: Code(s): M85.80 - Other specified disorders of bone density and structure, unspecified site Status: Acute Assessment and Plan: Will need to follow with PCP. (4) Fall: Code(s): W19.XXXA - Unspecified fall, initial encounter Status: Acute Assessment and Plan: PT/OT post op planned. Additional Plan Reviewed history, anticoagulation, radiographs and assessment with attending physician and consulted surgeon, Dr. Isabel. Dr. Isabel agrees with current plan. Plan for surgical intervention today. Patient is currently NPO. No further recommendations from Dr. Isabel. History of Present Illness HPI Consult date: 09/08/21 Consult reason: fracture Chief complaint: Left intertrochanteric fracture Narrative: 65-year-old female admitted after a fall at home yesterday in which she was unable to stand and put pressure on the left lower extremity status post fall. Her contacted EMS and patient was transported [facility] Emergency Room. Radiographs of the left hip in the ER revealed a comminuted intertrochanteric fracture of left femur. patient was admitted to the hospitalist service and Orthopedics were consulted for hip fracture. Review of Systems Constitutional: Constitutional: Reports no additional constitutional complaints, Denies excessive sweating, Denies fever(s) and Denies weight gain Eyes: Eyes: Reports no additional eye complaints and Denies change in vision ENT: Reports system reviewed and no additional complaints, except as documented and Reports Normal hearing present Cardiovascular: Cardiovascular: Denies chest pain, Denies diaphoresis, Denies leg ulcers and Denies dyspnea on exertion Respiratory: Respiratory: Reports no additional respiratory complaints, Denies cough and Denies dyspnea on exertion Gastrointestinal: Gastrointestinal: Reports no additional gastrointestinal complaints, Denies abdominal pain, Denies constipation, Denies nausea and Denies vomiting Genitourinary: Genitourinary: Denies hematuria and Denies urinary frequency Musculoskeletal: Musculoskeletal: Reports no additional musculoskeletal complaints and Reports as per HPI Neurologic: Reports Normal hearing present Endocrine:
[2021-09-08] MEDS: KETOROLAC 30 MG/ML VIAL (*BKC) IV PUSH (12:22)
--- NOTE | 2021-09-08 15:26 | WPDHPUPDATE1 ---
History and Physical Update Update Date/Time: 09/08/21 15:26 History and Physical has been reviewed, including an updated exam of the patient. There are NO changes in the patient's condition. Risks, benefits, and alternatives have been discussed and questions answered. Patient agrees to proceed with procedure.
[2021-09-08] MEDS: LACTATED RINGERS 1,000 ML 30 ML IV CONT ×2 (15:40→19:58)
[2021-09-08] MEDS: TRANEXAMIC ACID 1,000MG/ISO100 1,000 MG/100 ML BAG 200 MG IVPB (15:45)
--- NOTE | 2021-09-08 16:44 | WPDANESEPPF ---
Anes - Initial Pre Proc Eval Procedure: Operation Date: 09/08/21 16:30 Proposed Procedures p Left Intertrochanteric Nail(Left) - Otilio Isabel MD Date/Time: 09/08/21 16:44 Pre Op Diagnosis: Left intertrochanteric fracture Patient Data Age: 65 Gender: F Height: 1.63 m Weight: 96.1 kg Last Vital Signs Temp 36.9 C 09/08/21 15:22 Pulse 83 09/08/21 15:22 Resp 18 09/08/21 15:22 BP 133/65 09/08/21 15:22 Pulse Ox 100 09/08/21 15:22 Allergies Allergy/AdvReac Type Severity Reaction Status Date / Time iodine Allergy Unknown Unknown Verified 09/08/21 15:43 povidone Allergy Unknown Itching Verified 09/08/21 15:43 povidone-iodine Allergy Unknown Itching Verified 09/08/21 15:43 soap Allergy Unknown Itching Verified 09/08/21 15:43 Home Medications Medication Instructions Recorded Confirmed Type apixaban [Eliquis] 5 mg PO BID 03/11/20 09/07/21 History cholecalciferol (vitamin D3) 50 50 mcg PO DAILY 04/02/20 09/07/21 History mcg (2,000 unit) capsule ferrous sulfate 324 mg (65 mg 325 mg PO DAILY tablet 04/27/20 09/07/21 History iron) tablet,delayed release magnesium 250 mg tablet 500 mg PO DAILY 01/20/21 09/07/21 History appcybnv-fdt-hbfam ac 400 1 tablet PO DAILY 01/20/21 09/07/21 History mcg-calcium carb 500 mg-vit K1 20 mcg tablet simvastatin 10 mg tablet 10 mg PO DAILY #90 tablet 07/19/21 09/07/21 Rx acetaminophen 500 mg tablet 500 mg PO Q6H PRN 08/29/21 09/07/21 History ascorbic acid (vitamin C) 500 mg 500 mg PO DAILY 08/29/21 09/07/21 History tablet Laboratory Tests 09/07/21 09/07/21 09/07/21 20:19 20:19 20:19 WBC 7.6 K/mm3 K/mm3 (4.5-10.0) RBC 3.85 M/mm3 L M/mm3 (4.2-5.4) Hgb 11.8 g/dL L g/dL (12.0-15.0) Hct 37.9 % % (37.0-47.0) MCV 98.4 fl fl (80-100) MCH 30.6 pg pg (26-34) MCHC 31.1 g/dl L g/dl (32-36) RDW 16.6 % H % (11.5-14.5) Plt Count 220 k/mm3 k/mm3 (150-375) MPV 9.4 fl fl (7.4-10.4) Immature Gran % (Auto) 0.5 % % (0-0.5) Neut % (Auto) 78.6 % H % (45.5-73.1) Lymph % (Auto) 10.7 % L % (18.3-44.2) [place] % (Auto) 8.0 % % (2.6-8.5) Eos % (Auto) 1.3 % % (0-4.4) Baso % (Auto) 0.9 % % (0.2-1.2) Lymph # (Auto) 0.81 K/mm3 L K/mm3 (0.9-3.2) [place] # (Auto) 0.6 K/mm3 K/mm3 (0.1-0.6) Eos # (Auto) 0.1 K/mm3 K/mm3 (0-0.3) Baso # (Auto) 0.1 K/mm3 K/mm3 (0.0-0.1) Abs Immat Gran (auto) 0.04 K/mm3 H K/mm3 (0.00-0.031) Absolute Neuts (auto) 6.0 K/mm3 K/mm3 (1.3-6.7) Absolute Nucleated RBC 0.0 K/mm3 K/mm3 (0.0-0.012) Nucleated RBC % 0.0 % % (0.0-0.2) PT 12.8 Seconds Seconds (11.1-14.7) INR 1.0 Sodium 137 mmol/L mmol/L (137-145) Potassium 4.0 mmol/L mmol/L (3.4-5.0) Chloride 105 mmol/L mmol/L (98-107) Carbon Dioxide 21 mmol/L L mmol/L (22-30) Anion Gap 11 mmol/L mmol/L (8-16) BUN 20 mg/dL H mg/dL (7-17) Creatinine 0.80 mg/dL mg/dL (0.7-1.0) Estim Creat Clear Calc 65 ml/min ml/min Estimated GFR > 60 (59 - ) Glucose 113 mg/dL H mg/dL (65-110) Calcium 9.4 mg/dL mg/dL (8.4-10.2) Total Bilirubin 0.5 mg/dL mg/dL (0.2-1.3) AST 45 U/L H U/L (14-36) ALT 24 U/L U/L (4-35) Alkaline Phosphatase 106 U/L U/L (38-126) Total Protein 7.0 g/dL g/dL (6.3-8.2) Albumin 4.3 g/dL g/dL (3.5-5.1) Blood Type Antibody Screen 09/07/21 09/08/21 20:19 06:02 WBC RBC Hgb Hct MCV MCH MCHC RDW Plt Count MPV Immature Gran % (Auto) Neut % (Auto) Lymph % (Auto) M
[2021-09-08] MEDS: ceFAZolin 2 GM/D5W 50 ML 2 GM/50 ML BAG IVPB (17:55)
[2021-09-08] MEDS: TRANEXAMIC ACID 1,000 MG/10 ML AMPUL 1000 MG IV PUSH (19:07)
--- NOTE | 2021-09-08 19:30 | SUR.OPER ---
EBL: 900cc
--- NOTE | 2021-09-08 19:58 | W.PM.PROC2 ---
Procedure Note - Detailed Date of Procedure 09/08/21 Pre-op Diagnosis Left intertrochanteric fracture Post-op Diagnosis Same Procedure Performed INSERTION GAMMA ANTOINE LEFT HIP Surgeon Otilio Isabel MD Anesthesia General Description of Procedure THE PATIENT WAS TAKEN TO THE OPERATING ROOM AND PLACED ON A FRACTURE TABLE AFTER GIVEN GENERAL ANESTHESIA. THE LEFT LOWER EXTREMITY WAS PLACED IN A TRACTION BOOT AND USING SOME TRACTION AND INTERNAL ROTATION THE INTER TROCHANTERIC/SUB TROCHANTERIC FRACTURE WAS REDUCED TO ANATOMIC POSITION. NEXT THE LEFT LOWER EXTREMITY WAS PREPPED AND DRAPED IN THE STERILE FASHION. AN INCISION WAS MADE PROXIMAL TO THE TIP OF THE GREATER TROCHANTER AND DISSECTION CONTINUED TILL THE TIP OF THE GREATER TROCHANTER WAS PALPATED. A GUIDE PIN WAS PLACED DOWN THE FEMORAL CANAL AND PAST THE FRACTURE SITE. THIS WAS CHECKED ON FLUOROSCOPY AND FOUND TO BE IN GOOD POSITION. AN INITIAL REAMER WAS USED TO REAM THE FEMORAL CANAL. A 11 BY 390 MM ARTHREX RECON NAIL WAS INSERTED TILL THE CORRECT POSITION WAS IDENTIFIED ON XRAYAT THE DISTAL FEMUR JUST NEAR THE PROXIMAL POLE OF THE PATELLA. A GUIDE PIN WAS INSERTED THROUGH THE FEMORAL NECK AT 125 DEG ANGLE TILL IT REACHED THE TIP OF THE SUB CHONDRAL BONE SEEN ON XRAY. AFTER REAMING, LAG SCREW WAS INSERTED MEASURING 105 MM. XRAYS SHOWED IT TO BE IN GOOD POSITION. THE LAG SCREW WAS LOCKED PROXIMALLY WITH A LOCKING SCREW. NEXT A DISTAL LOCKING SCREW WAS PLACED ACROSS THE MID SHAFT OF ANTOINE AND WAS IN GOOD POSITION ON XRAY. THE TRACTION WAS RELEASED. THE WOUNDS WERE WASHED. BLEEDERS WERE CAUTERIZED. THE DEEP FASCIA WAS REPAIRED WITH 1 VICRYL SUTURE, THE SUB CUTANEOUS LAYER WITH 2-0 VICRYL, AND THE SKIN WITH CRISTOFER. THE WOUNDS WERE WASHED AND THEN STERILE DRESSING WAS APPLIED. PATIENT WAS EXTUBATED AND SENT TO RECOVERY ROOM. Estimated Blood Loss 900 Urine Output 300 Complications No immediate complications Condition Stable Disposition PACU
[2021-09-08 21:00] LABS: Hemoglobin 8.7 g/dL (12.0-15.0)
[2021-09-08] MEDS: fentaNYL CITRATE INJ (*CRX) 100 MCG/2 ML VIAL 25 MCG IV PUSH ×8 (21:20→21:44)
--- NOTE | 2021-09-08 22:03 | PC.NURSE ---
This patient, Marie Pulliam, was received from [PACU ] on 09/08/21 at 2204. Patient/family oriented to unit policies and routines
[2021-09-08] MEDS: hydrOXYzine pamoate 25 MG CAPSULE 50 MG PO (22:43)
[2021-09-08] MEDS: SODIUM CHLORIDE 0.9% IV 1,000 ML 125 ML IV CONT (22:55)
[2021-09-09] VITALS (13 sets, daily range): BP systolic 113–136; BP diastolic 52–98; PULSE 85–110; RESP 18–20; TEMP 36.2–37.7; O2SAT 96–100
[2021-09-09] MEDS: HYDROmorphone HCL INJ (*CRX) 1 MG/ML SYR IV PUSH ×3 (00:35→15:20)
[2021-09-09] MEDS: ceFAZolin 2 GM/D5W 50 ML 2 GM/50 ML BAG IVPB ×3 (01:30→17:43)
[2021-09-09 06:19] LABS: Basophils Percent Auto 0.2 % (0.2-1.2); Hematocrit 23.6 % (37.0-47.0); Hemoglobin 7.1 g/dL (12.0-15.0); Immature Granulocyte Absolute 0.08 K/mm3 (0.00-0.031); Immature Granulocyte Percent A 0.7 % (0-0.5); Lymphocytes Percent Auto 3.7 % (18.3-44.2); Mean Corpuscular HGB Conc 30.1 g/dl (32-36); Mean Corpuscular Hemoglobin 30.5 pg (26-34); Mean Corpuscular Volume 101.3 fl (80-100); Mean Platelet Volume 9.4 fl (7.4-10.4); Monocytes Absolute Auto 0.7 K/mm3 (0.1-0.6); Monocytes Percent Auto 6.8 % (2.6-8.5); Neutrophils Absolute Auto 9.5 K/mm3 (1.3-6.7); Neutrophils Percent Auto 88.6 % (45.5-73.1); Platelet Count Result 164 k/mm3 (150-375); Red Blood Count 2.33 M/mm3 (4.2-5.4); Red Cell Distribution Width 16.4 % (11.5-14.5); White Blood Count 10.7 K/mm3 (4.5-10.0)
[2021-09-09 06:36] LABS: Alanine Aminotransferase 17 U/L (4-35); Alkaline Phosphatase 68 U/L (38-126); Anion Gap 3 mmol/L (8-16); Aspartate Amino Transferase 28 U/L (14-36); Bilirubin,Total 0.4 mg/dL (0.2-1.3); Blood Urea Nitrogen 15 mg/dL (7-17); Calcium 8.1 mg/dL (8.4-10.2); Carbon Dioxide 23 mmol/L (22-30); Chloride 108 mmol/L (98-107); Estimated CRCL calculation 77 ml/min; Estimated Glomerular Filt Rate > 60; Glucose 146 mg/dL (65-110); Magnesium 1.9 mg/dL (1.6-2.3); Potassium 4.6 mmol/L (3.4-5.0); Sodium 134 mmol/L (137-145)
[2021-09-09] MEDS: hydrOXYzine pamoate 25 MG CAPSULE 50 MG PO (09:28)
[2021-09-09] MEDS: polyethylene glycoL 3350 17 GM POWD.PACK PO (09:29)
[2021-09-09] MEDS: CHOLECALCIFEROL 1,000 UNITS TABLET 2000 UNITS PO (09:29)
[2021-09-09] MEDS: ASCORBIC ACID 500 MG TABLET PO (09:29)
[2021-09-09] MEDS: SENNA/DOCUSATE SODIUM TABLET 2 TAB PO ×2 (09:29→17:43)
[2021-09-09] MEDS: APIXABAN 5 MG TABLET PO ×2 (09:29→20:42)
[2021-09-09] MEDS: MAGNESIUM 27 MG TABLET (500 MG MAG GLUCONATE) PO (09:29)
[2021-09-09] MEDS: SIMVASTATIN 10 MG TABLET PO (09:29)
[2021-09-09] MEDS: FERROUS SULFATE 324 MG TABLET PO (09:29)
[2021-09-09] MEDS: THERAPEUTIC MULTIVITAMINS/MINERALS TAB (*BKC) 1 TABLET PO (09:29)
--- NOTE | 2021-09-09 09:49 | PM.PNORT ---
Progress Note: A&P Assessment and Plan (1) Status post-operative repair of closed fracture of left hip: Code(s): Z98.890 - Other specified postprocedural states; Z87.81 - Personal history of (healed) traumatic fracture Status: Acute Assessment and Plan: POD #1: INSERTION GAMMA ANTOINE LEFT HIP Continue PT and OT. Toe-touch weight-bearing left lower extremity. Walker. High fall risk. Continue pain control. Ice lateral hip. Monitor dressing. Begin daily dressing changes tomorrow with island dressings. Monitor surrounding ecchymosis/drainage. Okay to resume Eliquis per Dr. Isabel. No additional anticoagulation recommended by Dr. Isabel at this time. Incentive spirometer. SCDs. May need acute rehab due to weight-bearing limitations. Patient currently lives at home with her . Plan: ARF vs Home with Home Health pending medical stability. Follow up arranged. (2) Atrial fibrillation: Qualifiers: Atrial fibrillation type: paroxysmal Qualified Code(s): I48.0 - Paroxysmal atrial fibrillation Code(s): I48.91 - Unspecified atrial fibrillation Status: Acute Assessment and Plan: Okay to resume Eliquis per Dr. Isabel. (3) Closed hip fracture: Qualifiers: Encounter type: initial encounter Laterality: left Qualified Code(s): S72.002A - Fracture of unspecified part of neck of left femur, initial encounter for closed fracture Code(s): S72.009A - Fracture of unspecified part of neck of unspecified femur, initial encounter for closed fracture Status: Acute Assessment and Plan: Surgical fixation, see above. (4) Postoperative anemia: Code(s): D64.9 - Anemia, unspecified Status: Acute Assessment and Plan: Patient had a surgical estimated blood loss of 900 mL. Current hemoglobin is 7.1 today. Medicine team aware and following. Trending labs. Patient's vital signs are currently stable. Time Spent With Patient Time with patient: less than 15 minutes Subjective Subjective Date/Time Seen: 09/09/21 09:49 Post Op day: 1 Interval history: POD #1:INSERTION GAMMA ANTOINE LEFT HIP Patient doing well this morning. Sitting up in the chair. She is more comfortable in the chair then on the bed currently. She does have pain but it is well controlled. She is hesitant for Sousa catheter removal at this time as she does not feel that she has gained her bearings with physical and occupational therapy. She denies nausea, vomiting. Review of Systems Review of Systems: All systems reviewed & are unremarkable except as noted in HPI and below (HPI ) Exam Const: General: comfortable and no acute distress Resp: Effort & Inspection: normal respiratory effort Cardio: Rate: regular rate Rhythm: regular rhythm GI: Inspection: non-distended Skin: General skin exam: normal color Wounds: wounds noted (incision left hip C/D/I ) Extrem: Right lower extremity: normal to inspection, full ROM and normal capillary refill Left lower extremity: hip/thigh Details: tenderness Location: of the hip Location: laterally and anteriorly, swelling (thigh soft ) Location: of the hip (lateral. ), abnormal ROM (limitations with internal/external rotation and flexion/extension due to recent surgical intervention ) and other (incision lateral hip c/d/i. ), knee Details: normal to inspection and normal ROM; no tenderness and no swelling, lower leg (Negative Pavithra's Sign ) Details: no edema, ankle (+ankle dorsiflexion/plantarflexion ) Details: normal to inspection, no edema and normal ROM; no tenderness, no swelling and no warmth and foot Details: normal capillary refill, toes with normal ROM, vascular exam Details: dorsalis pedis pulse present and motor-sensory exam light-touch normal in all toes; no tenderness, no ecchymosis and no crepitus Psych: Mental Status: mental status grossly normal Affect: normal affect Objective Data Vital Signs Vital Signs: Vital Signs -
--- NOTE | 2021-09-09 10:45 | P.PNIM_ITS ---
Progress Note: A&P Assessment and Plan (1) Status post-operative repair of closed fracture of left hip: Code(s): Z98.890 - Other specified postprocedural states; Z87.81 - Personal history of (healed) traumatic fracture Status: Acute Assessment and Plan: * See below * ortho to manage (2) Fall: Code(s): W19.XXXA - Unspecified fall, initial encounter Status: Acute Assessment and Plan: * Mechanical fall * Hip xray: Comminuted intertrochanteric fracture of left femur * Ortho consulted thank you for your help * Pain management: dilaudid 1mg IV Q2hr, Toradol 30mg IV Q6h, norco 7.5/325 * regular diet * eliquis restarted * Surgical intervention 09/08/21 * Fall precautions (3) Closed hip fracture: Qualifiers: Encounter type: initial encounter Laterality: left Qualified Code(s): S72.002A - Fracture of unspecified part of neck of left femur, initial encounter for closed fracture Code(s): S72.009A - Fracture of unspecified part of neck of unspecified femur, initial encounter for closed fracture Status: Acute Assessment and Plan: * Mechanical fall * Hip xray: Comminuted intertrochanteric fracture of left femur * Ortho consulted thank you for your help * Pain management: dilaudid 1mg IV Q2hr, Toradol 30mg IV Q6h, norco * regular diet * Eliquis restarted * Fall precautions * Pain management (4) Atrial fibrillation: Qualifiers: Atrial fibrillation type: paroxysmal Qualified Code(s): I48.0 - Paroxysmal atrial fibrillation Code(s): I48.91 - Unspecified atrial fibrillation Status: Acute Assessment and Plan: * Rate controlled and anticoagulated (5) GERD (gastroesophageal reflux disease): Code(s): K21.9 - Gastro-esophageal reflux disease without esophagitis Status: Inactive Assessment and Plan: * PPI as needed (6) Anemia: Qualifiers: Anemia type: iron deficiency Iron deficiency anemia type: unspecified iron deficiency Qualified Code(s): D50.9 - Iron deficiency anemia, unspecified Code(s): D64.9 - Anemia, unspecified Status: Acute Assessment and Plan: * Chronic iron deficient anemia * H/H trending down to 7.1/23.6 * anemia labs pending * Supplement as indicated * Continue iron when able to take PO * Partly related to the surgery as well * Trend labs (7) Hyperlipidemia: Qualifiers: Hyperlipidemia type: mixed hyperlipidemia Qualified Code(s): E78.2 - Mixed hyperlipidemia Code(s): E78.5 - Hyperlipidemia, unspecified Status: Acute Assessment and Plan: * Continue home medications Time Spent With Patient Time with patient: Greater than 35 minutes Subjective Date/time seen: 09/09/21 10:45 Interval history: Date/Time: 09/07/21 22:46 Narrative: This is a 65-year-old female with past medical history significant for dyslipidemia, iron deficiency anemia, gastroesophageal reflux disease, atrial fibrillation. Patient presents to the emergency room via EMS after she suffered a fall at home mechanical ground level with no loss of consciousness however patient was not able to get up on her own who was present call 911. In emergency room patient was found to have a left hip fracture. Patient has been in her usual state of health denies any fevers, chills ,rigors ,cough, sputum production, ch
--- NOTE | 2021-09-09 10:45 | PM.IMPN ---
Progress Note: A&P Assessment and Plan (1) Status post-operative repair of closed fracture of left hip: Code(s): Z98.890 - Other specified postprocedural states; Z87.81 - Personal history of (healed) traumatic fracture Status: Acute Assessment and Plan: See below ortho to manage (2) Fall: Code(s): W19.XXXA - Unspecified fall, initial encounter Status: Acute Assessment and Plan: Mechanical fall Hip xray: Comminuted intertrochanteric fracture of left femur Ortho consulted thank you for your help Pain management: dilaudid 1mg IV Q2hr, Toradol 30mg IV Q6h, norco 7.5/325 regular diet eliquis restarted Surgical intervention 09/08/21 Fall precautions (3) Closed hip fracture: Qualifiers: Encounter type: initial encounter Laterality: left Qualified Code(s): S72.002A - Fracture of unspecified part of neck of left femur, initial encounter for closed fracture Code(s): S72.009A - Fracture of unspecified part of neck of unspecified femur, initial encounter for closed fracture Status: Acute Assessment and Plan: Mechanical fall Hip xray: Comminuted intertrochanteric fracture of left femur Ortho consulted thank you for your help Pain management: dilaudid 1mg IV Q2hr, Toradol 30mg IV Q6h, norco regular diet Eliquis restarted Fall precautions Pain management (4) Atrial fibrillation: Qualifiers: Atrial fibrillation type: paroxysmal Qualified Code(s): I48.0 - Paroxysmal atrial fibrillation Code(s): I48.91 - Unspecified atrial fibrillation Status: Acute Assessment and Plan: Rate controlled and anticoagulated (5) GERD (gastroesophageal reflux disease): Code(s): K21.9 - Gastro-esophageal reflux disease without esophagitis Status: Inactive Assessment and Plan: PPI as needed (6) Anemia: Qualifiers: Anemia type: iron deficiency Iron deficiency anemia type: unspecified iron deficiency Qualified Code(s): D50.9 - Iron deficiency anemia, unspecified Code(s): D64.9 - Anemia, unspecified Status: Acute Assessment and Plan: Chronic iron deficient anemia H/H trending down to 7.1/23.6 anemia labs pending Supplement as indicated Continue iron when able to take PO Partly related to the surgery as well Trend labs (7) Hyperlipidemia: Qualifiers: Hyperlipidemia type: mixed hyperlipidemia Qualified Code(s): E78.2 - Mixed hyperlipidemia Code(s): E78.5 - Hyperlipidemia, unspecified Status: Acute Assessment and Plan: Continue home medications Time Spent With Patient Time with patient: Greater than 35 minutes Subjective Date/time seen: 09/09/21 10:45 Interval history: Date/Time: 09/07/21 22:46 Narrative: This is a 65-year-old female with past medical history significant for dyslipidemia, iron deficiency anemia, gastroesophageal reflux disease, atrial fibrillation. Patient presents to the emergency room via EMS after she suffered a fall at home mechanical ground level with no loss of consciousness however patient was not able to get up on her own who was present call 911. In emergency room patient was found to have a left hip fracture. Patient has been in her usual state of health denies any fevers, chills ,rigors ,cough, sputum production, chest pain, shortness of breath, leg swelling, palpitations, syncope ,near syncope, or lightheadedness no nausea, no vomiting, no diarrhea ,no abdominal pain. Patient has been admitted for further evaluation, management and treatment. Date/Time 09/08/21 0945 Patient was on the bedpan when I went in to evaluate her. Patient stated that she is just a whole lot of pain and rates her pain at current 8/10. Patient states that the pain medicine is helping. She stated that she has been kind of weak and fatigued and she has not slept
--- NOTE | 2021-09-09 11:09 | P.PNAN_ITS ---
Anes - Prog Note Post-Op Date/Time: 09/09/21 11:09 Cardiovascular status: normal Respiratory status: normal Airway patency: baseline Mental status: baseline Post-Op hydration status: normal Vital Signs: Last Vital Signs Temp 36.8 C 09/09/21 09:20 Pulse 107 H 09/09/21 09:20 Resp 18 09/09/21 09:20 BP 118/91 H 09/09/21 09:20 Pulse Ox 100 09/09/21 09:20 Pain Score (VAS): 3 I/O: Intake & Output 09/08/21 09/09/21 09/09/21 23:59 07:59 15:59 Intake Total 1780 650 360 Output Total 650 400 Balance 1130 250 360 Laboratory Tests 09/09/21 06:08 09/09/21 06:09 09/08/21 09/09/21 09/09/21 20:55 06:08 06:09 WBC 10.7 H RBC 2.33 L Hgb 8.7 L D 7.1 L Hct 29.0 L 23.6 L MCV 101.3 H MCH 30.5 MCHC 30.1 L RDW 16.4 H Plt Count 164 MPV 9.4 Immature Gran % (Auto) 0.7 H Neut % (Auto) 88.6 H Lymph % (Auto) 3.7 L [place] % (Auto) 6.8 Eos % (Auto) 0.0 Baso % (Auto) 0.2 Lymph # (Auto) 0.40 L [place] # (Auto) 0.7 H Eos # (Auto) 0.0 Baso # (Auto) 0.0 Abs Immat Gran (auto) 0.08 H Absolute Neuts (auto) 9.5 H Absolute Nucleated RBC 0.0 Nucleated RBC % 0.0 Sodium 134 L Potassium 4.6 Chloride 108 H Carbon Dioxide 23 Anion Gap 3 L BUN 15 Creatinine 0.70 Estim Creat Clear Calc 77 Estimated GFR > 60 Glucose 146 H Calcium 8.1 L Magnesium 1.9 Total Bilirubin 0.4 AST 28 ALT 17 Alkaline Phosphatase 68 Total Protein 5.0 L Albumin 3.0 L Post-procedural complaints: none Patient Feedback: Patient satisfied with anesthetic care.
[2021-09-09 11:38] LABS: Lactate Dehydrogenase 494 U/L (313-618)
[2021-09-09 11:45] LABS: Transferrin 224 mg/dL (206-381)
[2021-09-09 12:45] LABS: Folic Acid 19.8 ng/mL (2.76->20)
[2021-09-09 12:57] LABS: Iron 40 ug/dL (37-170)
[2021-09-09 13:06] LABS: Percent Iron Saturation 14 % (20-50)
[2021-09-09] MEDS: HYDROcodone/acetaminophen (*CRX) 7.5-325 MG TABLET 1 TAB PO (20:58)
[2021-09-10] VITALS (13 sets, daily range): BP systolic 96–142; BP diastolic 50–79; PULSE 87–105; RESP 15–18; TEMP 36–36.5; O2SAT 95–100
[2021-09-10] MEDS: hydrOXYzine pamoate 25 MG CAPSULE 50 MG PO (00:27)
[2021-09-10] MEDS: HYDROcodone/acetaminophen (*CRX) 7.5-325 MG TABLET 1 TAB PO ×3 (03:47→13:45)
[2021-09-10] MEDS: KETOROLAC 30 MG/ML VIAL (*BKC) IV PUSH (03:47)
[2021-09-10 06:01] LABS: Basophils Absolute Auto 0.1 K/mm3 (0.0-0.1); Basophils Percent Auto 0.7 % (0.2-1.2); Eosinophils Absolute Auto 0.1 K/mm3 (0-0.3); Eosinophils Percent Auto 0.8 % (0-4.4); Immature Granulocyte Absolute 0.04 K/mm3 (0.00-0.031); Immature Granulocyte Percent A 0.5 % (0-0.5); Lymphocytes Absolute Auto 1.06 K/mm3 (0.9-3.2); Lymphocytes Percent Auto 14.4 % (18.3-44.2); Mean Corpuscular HGB Conc 29.7 g/dl (32-36); Mean Corpuscular Hemoglobin 30.2 pg (26-34); Mean Corpuscular Volume 101.5 fl (80-100); Monocytes Percent Auto 13.6 % (2.6-8.5); Neutrophils Absolute Auto 5.2 K/mm3 (1.3-6.7); Nucleated Red Blood Cells Perc 0.3 % (0.0-0.2); Platelet Count Result 167 k/mm3 (150-375); Red Blood Count 1.99 M/mm3 (4.2-5.4); Red Cell Distribution Width 16.8 % (11.5-14.5); White Blood Count 7.4 K/mm3 (4.5-10.0)
[2021-09-10 06:19] LABS: Alanine Aminotransferase 27 U/L (4-35); Alkaline Phosphatase 88 U/L (38-126); Anion Gap 1 mmol/L (8-16); Aspartate Amino Transferase 54 U/L (14-36); Bilirubin,Total 0.5 mg/dL (0.2-1.3); Blood Urea Nitrogen 11 mg/dL (7-17); Calcium 8.2 mg/dL (8.4-10.2); Carbon Dioxide 28 mmol/L (22-30); Chloride 105 mmol/L (98-107); Estimated CRCL calculation 77 ml/min; Estimated Glomerular Filt Rate > 60; Glucose 117 mg/dL (65-110); Potassium 3.8 mmol/L (3.4-5.0); Sodium 134 mmol/L (137-145)
[2021-09-10 06:26] LABS: Hematocrit 20.2 % (37.0-47.0)
[2021-09-10] MEDS: HYDROmorphone HCL INJ (*CRX) 1 MG/ML SYR IV PUSH ×3 (08:53→22:17)
[2021-09-10] MEDS: ASCORBIC ACID 500 MG TABLET PO (09:45)
[2021-09-10] MEDS: APIXABAN 5 MG TABLET PO ×2 (09:45→22:14)
[2021-09-10] MEDS: MAGNESIUM 27 MG TABLET (500 MG MAG GLUCONATE) PO (09:45)
[2021-09-10] MEDS: CHOLECALCIFEROL 1,000 UNITS TABLET 2000 UNITS PO (09:45)
[2021-09-10] MEDS: SODIUM CHLORIDE 0.9% IV 250 ML 30 ML IV CONT (09:45)
[2021-09-10] MEDS: THERAPEUTIC MULTIVITAMINS/MINERALS TAB (*BKC) 1 TABLET PO (09:45)
[2021-09-10] MEDS: SENNA/DOCUSATE SODIUM TABLET 2 TAB PO ×2 (09:45→16:33)
[2021-09-10] MEDS: polyethylene glycoL 3350 17 GM POWD.PACK PO (09:46)
[2021-09-10] MEDS: SIMVASTATIN 10 MG TABLET PO (09:46)
[2021-09-10] MEDS: FERROUS SULFATE 324 MG TABLET PO (09:46)
--- NOTE | 2021-09-10 10:22 | PCOTNOTE ---
Attempted to see patient this am, however RN with patient at this time stated, We're getting two units of blood. Pt not seen for this reason.
--- NOTE | 2021-09-10 11:45 | PM.PNORT ---
Progress Note: A&P Additional Plan POD 2 IMPOROVING PAIN. POSTOP ANEMIA. CONTINUE PT IF NOT SYMPTOMATIC FOR ANEMIA. Subjective Subjective Date/Time Seen: 09/10/21 11POD 2 DOING WELL. HGB DECREASE. RECEIVING 2 U OF PRBC. SHE IS ASYMPTOMATIC AND BP IS STABLE. NO CALF PAIN Review of Systems Cardiovascular: Cardiovascular: Reports no additional cardiovascular complaints, Denies chest pain, Denies chest pain at rest and Denies chest pain with activity Exam Extrem: Other: VSS AFEBRILE DRESSING DRY NV INTACT NEG HOMANS SIGN CALF AND THIGH ARE SOFT Objective Data Vital Signs Vital Signs: Vital Signs - 24 hr 09/09/21 13:54 09/09/21 16:02 09/09/21 21:00 Temperature 36.4 C 37.7 C H Pulse Rate 107 H 110 H Respiratory Rate 20 20 Blood Pressure 119/98 H 116/62 Pulse Oximetry 99 99 99 09/09/21 21:16 09/09/21 21:17 09/09/21 23:49 Temperature 36.4 C L 36.4 C L 36.2 C L Pulse Rate 100 100 95 Respiratory Rate 18 18 18 Blood Pressure 136/71 136/71 113/52 L Pulse Oximetry 100 100 99 09/09/21 23:58 09/10/21 06:28 09/10/21 08:35 Temperature 36.2 C L 36.1 C L Pulse Rate 95 93 Respiratory Rate 18 18 Blood Pressure 113/52 L 96/53 L Pulse Oximetry 99 95 98 09/10/21 09:30 09/10/21 10:17 09/10/21 10:39 Temperature 36.5 C 36.1 C L 36.3 C L Pulse Rate 105 H 97 99 Respiratory Rate 16 16 16 Blood Pressure 114/51 L 110/50 L 124/71 Pulse Oximetry 99 100 100 Intake/Output Intake/Output: Intake & Output 09/07/21 09/08/21 09/09/21 09/10/21 23:59 23:59 23:59 23:59 Intake Total 3030 1930 1015 Output Total 1075 1800 2300 Balance 1954 130 -1285 Meds/Results Medications: Active Medications Generic Name Dose Route Start Last Admin Trade Name Freq PRN Reason Stop Dose Admin Acetaminophen 500 mg 09/08/21 21:49 Acetaminophen 500 Mg Tablet PO Q6H PRN Moderate Pain (Scale Score 5-6) Hydrocodone Bitart/Acetaminophen 1 tab 09/08/21 21:49 09/10/21 09:44 Hydrocodone/Acetaminophen (*Crx) 7.5-325 Mg Tablet PO 1 tab Q3H PRN Administration Pain Rated 4-6 Al Hydrox/Mg Hydrox/Simethicone 30 ml 09/08/21 21:49 Mag Hydrox/Al Hydrox/Simeth 30 Ml Udc PO Q6H PRN Indigestion Apixaban 5 mg 09/09/21 09:00 09/10/21 09:45 Apixaban 5 Mg Tablet PO 5 mg Q12HR TERESITA Administration Ascorbic Acid 500 mg 09/09/21 09:00 09/10/21 09:45 Ascorbic Acid 500 Mg Tablet PO 500 mg DAILY TERESITA Administration Diazepam 5 mg 09/08/21 08:02 09/08/21 09:52 Diazepam Inj (*Crx) 10 Mg/2 Ml Syringe IV PUSH 5 mg Q8H PRN Administration SPASM Diazepam 5 mg 09/08/21 21:49 Diazepam (*Crx) 5 Mg Tablet PO Q8H PRN Muscle Spasm Ferrous Sulfate 324 mg 09/09/21 09:00 09/10/21 09:46 Ferrous Sulfate 324 Mg Tablet PO 324 mg DAILY TERESITA Administration Hydromorphone HCl 1 mg 09/08/21 07:58 09/10/21 08:53 Hydromorphone Hcl Inj (*Crx) 1 Mg/Ml Syr IV PUSH 1 mg Q2H PRN Administration Pain Rated 7-10 Hydroxyzine Pamoate 50 mg 09/08/21 21:49 09/10/21 00:27 Hydroxyzine Pamoate 25 Mg Capsule PO 50 mg Q4H PRN Administration Itching Sodium Chloride 250 mls @ 30 mls/hr 09/10/21 07:14 09/10/21 09:45 Normal Saline Iv IV CONT 09/10/21 15:33 30 mls/hr .Q8H20M STA Administration Ketorolac Tromethamine 30 mg 09/08/21 08:01 09/10/21 03:47 Ketorolac 30 Mg/Ml Vial (*Bkc) IV PUSH 30 mg Q6H PRN Administration Pain Rated 4-6 Magnesium Gluconate 27 mg 09/09/21 09:00 09/10/21 09:45 Magnesium 27 Mg Tablet (500 Mg Mag Gluconate) PO 10/09/21 08:59 27 mg DAILY TERESITA Administration Magnesium Hydroxide 30 ml 09/08/21 21:49 Magnesium Hydroxide Susp 30 Ml Udc PO BID PRN Constipation Miscellaneous Information 0 each 09/08/21 00:01 Diazepam Iv And Po Ordered For Spasm - Please Clarify When To Use Each Or D/C One XX 10/08/21 00:00 CLARIFY TERESITA Miscellaneous Information 0 each 09/09/21 00:01
[2021-09-10] MEDS: ACETAMINOPHEN 500 MG TABLET PO (12:10)
--- NOTE | 2021-09-10 13:47 | P.PNIM_ITS ---
Progress Note: A&P Assessment and Plan (1) Status post-operative repair of closed fracture of left hip: Code(s): Z98.890 - Other specified postprocedural states; Z87.81 - Personal history of (healed) traumatic fracture Status: Acute Assessment and Plan: * See below * ortho to manage (2) Fall: Code(s): W19.XXXA - Unspecified fall, initial encounter Status: Acute Assessment and Plan: * Mechanical fall * Hip xray: Comminuted intertrochanteric fracture of left femur * Ortho consulted thank you for your help * Pain management: dilaudid 1mg IV Q2hr, Toradol 30mg IV Q6h, norco 7.5/325 * regular diet * eliquis restarted * Surgical intervention 09/08/21 * Fall precautions (3) Closed hip fracture: Qualifiers: Encounter type: initial encounter Laterality: left Qualified Code(s): S72.002A - Fracture of unspecified part of neck of left femur, initial encounter for closed fracture Code(s): S72.009A - Fracture of unspecified part of neck of unspecified femur, initial encounter for closed fracture Status: Acute Assessment and Plan: * Mechanical fall * Hip xray: Comminuted intertrochanteric fracture of left femur * Ortho consulted thank you for your help * Pain management: dilaudid 1mg IV Q2hr, Toradol 30mg IV Q6h, norco * regular diet * Eliquis restarted * Fall precautions * Pain management (4) Atrial fibrillation: Qualifiers: Atrial fibrillation type: paroxysmal Qualified Code(s): I48.0 - Paroxysmal atrial fibrillation Code(s): I48.91 - Unspecified atrial fibrillation Status: Acute Assessment and Plan: * Patient in normal sinus rhythm and states she has been in normal sinus rhythm for quite some time, but she does continue to take anticoagulation per her junior project coordinator. Anticoagulation has been restarted. (5) GERD (gastroesophageal reflux disease): Code(s): K21.9 - Gastro-esophageal reflux disease without esophagitis Status: Inactive Assessment and Plan: * PPI as needed (6) Anemia: Qualifiers: Anemia type: iron deficiency Iron deficiency anemia type: unspecified iron deficiency Qualified Code(s): D50.9 - Iron deficiency anemia, unspecified Code(s): D64.9 - Anemia, unspecified Status: Acute Assessment and Plan: * Chronic iron deficient anemia * H/H trending down to 6.0/20.2 * Patient states she is on iron supplementation and this is followed by her primary care provider * Continue iron when able to take PO * Partly related to the surgery as well * Patient has received 2 units of packed red blood cells and will recheck hemoglobin and hematocrit post transfusion. Will have serial hemoglobin and hematocrits drawn overnight to evaluate for any acute blood loss. (7) Hyperlipidemia: Qualifiers: Hyperlipidemia type: mixed hyperlipidemia Qualified Code(s): E78.2 - Mixed hyperlipidemia Code(s): E78.5 - Hyperlipidemia, unspecified Status: Acute Assessment and Plan: * Continue home medications Subjective Date/time seen: 09/10/21 13:47 Interval history: Date/Time: 09/07/21 22:46 Narrative: This is a 65-year-old female with past medical history significant for dyslipidemia, iron deficiency anemia, gastroesophageal reflux disease, atrial fibrillation. Patient presents to the emergency room
--- NOTE | 2021-09-10 13:47 | PM.IMPN ---
Progress Note: A&P Assessment and Plan (1) Status post-operative repair of closed fracture of left hip: Code(s): Z98.890 - Other specified postprocedural states; Z87.81 - Personal history of (healed) traumatic fracture Status: Acute Assessment and Plan: See below ortho to manage (2) Fall: Code(s): W19.XXXA - Unspecified fall, initial encounter Status: Acute Assessment and Plan: Mechanical fall Hip xray: Comminuted intertrochanteric fracture of left femur Ortho consulted thank you for your help Pain management: dilaudid 1mg IV Q2hr, Toradol 30mg IV Q6h, norco 7.5/325 regular diet eliquis restarted Surgical intervention 09/08/21 Fall precautions (3) Closed hip fracture: Qualifiers: Encounter type: initial encounter Laterality: left Qualified Code(s): S72.002A - Fracture of unspecified part of neck of left femur, initial encounter for closed fracture Code(s): S72.009A - Fracture of unspecified part of neck of unspecified femur, initial encounter for closed fracture Status: Acute Assessment and Plan: Mechanical fall Hip xray: Comminuted intertrochanteric fracture of left femur Ortho consulted thank you for your help Pain management: dilaudid 1mg IV Q2hr, Toradol 30mg IV Q6h, norco regular diet Eliquis restarted Fall precautions Pain management (4) Atrial fibrillation: Qualifiers: Atrial fibrillation type: paroxysmal Qualified Code(s): I48.0 - Paroxysmal atrial fibrillation Code(s): I48.91 - Unspecified atrial fibrillation Status: Acute Assessment and Plan: Patient in normal sinus rhythm and states she has been in normal sinus rhythm for quite some time, but she does continue to take anticoagulation per her associate civil engineer. Anticoagulation has been restarted. (5) GERD (gastroesophageal reflux disease): Code(s): K21.9 - Gastro-esophageal reflux disease without esophagitis Status: Inactive Assessment and Plan: PPI as needed (6) Anemia: Qualifiers: Anemia type: iron deficiency Iron deficiency anemia type: unspecified iron deficiency Qualified Code(s): D50.9 - Iron deficiency anemia, unspecified Code(s): D64.9 - Anemia, unspecified Status: Acute Assessment and Plan: Chronic iron deficient anemia H/H trending down to 6.0/20.2 Patient states she is on iron supplementation and this is followed by her primary care provider Continue iron when able to take PO Partly related to the surgery as well Patient has received 2 units of packed red blood cells and will recheck hemoglobin and hematocrit post transfusion. Will have serial hemoglobin and hematocrits drawn overnight to evaluate for any acute blood loss. (7) Hyperlipidemia: Qualifiers: Hyperlipidemia type: mixed hyperlipidemia Qualified Code(s): E78.2 - Mixed hyperlipidemia Code(s): E78.5 - Hyperlipidemia, unspecified Status: Acute Assessment and Plan: Continue home medications Subjective Date/time seen: 09/10/21 13:47 Interval history: Date/Time: 09/07/21 22:46 Narrative: This is a 65-year-old female with past medical history significant for dyslipidemia, iron deficiency anemia, gastroesophageal reflux disease, atrial fibrillation. Patient presents to the emergency room via EMS after she suffered a fall at home mechanical ground level with no loss of consciousness however patient was not able to get up on her own who was present call 911. In emergency room patient was found to have a left hip fracture. Patient has been in her usual state of health denies any fevers, chills ,rigors ,cough, sputum production, chest pain, shortness of breath, leg swelling, palpitations, syncope ,near syncope, or lightheadedness no nausea, no vomiting, no diarrhea ,no abdominal pain. Patient has been admitted fo
[2021-09-10] MEDS: BENZOCAINE/MENTHOL (*BKC) 18 EA LOZENGE 1 LOZENGE PO ×2 (14:32→22:14)
[2021-09-10 19:23] LABS: Hematocrit 28.5 % (37.0-47.0); Hemoglobin 8.8 g/dL (12.0-15.0)
[2021-09-11 04:12] VITALS: BP 114/73; PULSE 95; RESP 16; TEMP 36.8; O2SAT 99
[2021-09-11 05:34] LABS: Basophils Percent Auto 0.5 % (0.2-1.2); Eosinophils Absolute Auto 0.1 K/mm3 (0-0.3); Eosinophils Percent Auto 1.4 % (0-4.4); Hematocrit 28.6 % (37.0-47.0); Hemoglobin 8.9 g/dL (12.0-15.0); Immature Granulocyte Absolute 0.04 K/mm3 (0.00-0.031); Immature Granulocyte Percent A 0.5 % (0-0.5); Lymphocytes Percent Auto 13.1 % (18.3-44.2); Mean Corpuscular HGB Conc 31.1 g/dl (32-36); Mean Corpuscular Hemoglobin 30.2 pg (26-34); Mean Corpuscular Volume 96.9 fl (80-100); Mean Platelet Volume 9.7 fl (7.4-10.4); Monocytes Absolute Auto 1.1 K/mm3 (0.1-0.6); Monocytes Percent Auto 13.6 % (2.6-8.5); Neutrophils Absolute Auto 5.9 K/mm3 (1.3-6.7); Neutrophils Percent Auto 70.9 % (45.5-73.1); Nucleated Red Blood Cells Perc 0.4 % (0.0-0.2); Platelet Count Result 193 k/mm3 (150-375); Red Blood Count 2.95 M/mm3 (4.2-5.4); Red Cell Distribution Width 17.2 % (11.5-14.5); White Blood Count 8.4 K/mm3 (4.5-10.0)
[2021-09-11] MEDS: HYDROcodone/acetaminophen (*CRX) 7.5-325 MG TABLET 1 TAB PO ×6 (05:35→22:19)
[2021-09-11] MEDS: BENZOCAINE/MENTHOL (*BKC) 18 EA LOZENGE 1 LOZENGE PO (05:39)
[2021-09-11 05:42] LABS: Anion Gap 4 mmol/L (8-16); Blood Urea Nitrogen 12 mg/dL (7-17); Calcium 8.6 mg/dL (8.4-10.2); Carbon Dioxide 28 mmol/L (22-30); Chloride 105 mmol/L (98-107); Estimated CRCL calculation 77 ml/min; Estimated Glomerular Filt Rate > 60; Glucose 105 mg/dL (65-110); Potassium 4.1 mmol/L (3.4-5.0); Sodium 137 mmol/L (137-145)
[2021-09-11] MEDS: MAGNESIUM HYDROXIDE SUSP 30 ML UDC PO (05:44)
[2021-09-11] MEDS: CHOLECALCIFEROL 1,000 UNITS TABLET 2000 UNITS PO (08:10)
[2021-09-11] MEDS: ASCORBIC ACID 500 MG TABLET PO (08:10)
[2021-09-11] MEDS: THERAPEUTIC MULTIVITAMINS/MINERALS TAB (*BKC) 1 TABLET PO (08:10)
[2021-09-11] MEDS: FERROUS SULFATE 324 MG TABLET PO (08:10)
[2021-09-11] MEDS: APIXABAN 5 MG TABLET PO ×2 (08:10→21:11)
[2021-09-11] MEDS: polyethylene glycoL 3350 17 GM POWD.PACK PO (09:32)
--- NOTE | 2021-09-11 10:56 | P.PNIM_ITS ---
Progress Note: A&P Assessment and Plan (1) Status post-operative repair of closed fracture of left hip: Code(s): Z98.890 - Other specified postprocedural states; Z87.81 - Personal history of (healed) traumatic fracture Status: Acute Assessment and Plan: * See below * ortho to manage (2) Fall: Qualifiers: Encounter type: initial encounter Qualified Code(s): W19.XXXA - Unspecified fall, initial encounter Code(s): W19.XXXA - Unspecified fall, initial encounter Status: Acute Assessment and Plan: * Mechanical fall * Hip xray: Comminuted intertrochanteric fracture of left femur * Ortho consulted thank you for your help * Pain management: Discontinue all IV pain meds today in preparation for discharge tomorrow. * regular diet * eliquis restarted * Surgical intervention 09/08/21 * Fall precautions (3) Closed hip fracture: Qualifiers: Encounter type: initial encounter Laterality: left Qualified Code(s): S72.002A - Fracture of unspecified part of neck of left femur, initial encounter for closed fracture Code(s): S72.009A - Fracture of unspecified part of neck of unspecified femur, initial encounter for closed fracture Status: Acute Assessment and Plan: * Mechanical fall * Hip xray: Comminuted intertrochanteric fracture of left femur * Ortho consulted thank you for your help * [place] prn pain. 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 Anticoagulation has been restarted. (5) GERD (gastroesophageal reflux disease): Qualifiers: Esophagitis presence: esophagitis presence not specified Qualified Code(s): K21.9 - Gastro-esophageal reflux disease without esophagitis Code(s): K21.9 - Gastro-esophageal reflux disease without esophagitis Status: Inactive Assessment and Plan: * PPI as needed (6) Anemia: Qualifiers: Anemia type: iron deficiency Iron deficiency anemia type: unspecified iron deficiency Qualified Code(s): D50.9 - Iron deficiency anemia, unspecified Code(s): D64.9 - Anemia, unspecified Status: Acute Assessment and Plan: * Chronic iron deficient anemia * H/H trending down to 6.0/20.2 and was transfused 2 units of PRBC's. * Continue iron supplementation. * Recheck H&H in AM prior to discharge. (7) Hyperlipidemia: Qualifiers: Hyperlipidemia type: mixed hyperlipidemia Qualified Code(s): E78.2 - Mixed hyperlipidemia Code(s): E78.5 - Hyperlipidemia, unspecified Status: Acute Assessment and Plan: * Continue home medications Time Spent With Patient Time with patient: 15 - 25 minutes Subjective Date/time seen: 09/11/21 4768 This pt. was examined at the bedside in interval assessment. She has no new complaints, states her pain is controlled and she has no CP, dyspnea, N/V/D. Her marion catheter is being removed today and she will be allowed to
--- NOTE | 2021-09-11 10:56 | PM.IMPN ---
Progress Note: A&P Assessment and Plan (1) Status post-operative repair of closed fracture of left hip: Code(s): Z98.890 - Other specified postprocedural states; Z87.81 - Personal history of (healed) traumatic fracture Status: Acute Assessment and Plan: See below ortho to manage (2) Fall: Qualifiers: Encounter type: initial encounter Qualified Code(s): W19.XXXA - Unspecified fall, initial encounter Code(s): W19.XXXA - Unspecified fall, initial encounter Status: Acute Assessment and Plan: Mechanical fall Hip xray: Comminuted intertrochanteric fracture of left femur Ortho consulted thank you for your help Pain management: Discontinue all IV pain meds today in preparation for discharge tomorrow. regular diet eliquis restarted Surgical intervention 09/08/21 Fall precautions (3) Closed hip fracture: Qualifiers: Encounter type: initial encounter Laterality: left Qualified Code(s): S72.002A - Fracture of unspecified part of neck of left femur, initial encounter for closed fracture Code(s): S72.009A - Fracture of unspecified part of neck of unspecified femur, initial encounter for closed fracture Status: Acute Assessment and Plan: Mechanical fall Hip xray: Comminuted intertrochanteric fracture of left femur Ortho consulted thank you for your help [place] prn pain. regular diet Eliquis restarted Fall precautions Pain management (4) Atrial fibrillation: Qualifiers: Atrial fibrillation type: paroxysmal Qualified Code(s): I48.0 - Paroxysmal atrial fibrillation Code(s): I48.91 - Unspecified atrial fibrillation Status: Acute Assessment and Plan: Patient in normal sinus rhythm and states she has been in normal sinus rhythm for quite some time, but she does continue to take anticoagulation per her tire fixer. Anticoagulation has been restarted. (5) GERD (gastroesophageal reflux disease): Qualifiers: Esophagitis presence: esophagitis presence not specified Qualified Code(s): K21.9 - Gastro-esophageal reflux disease without esophagitis Code(s): K21.9 - Gastro-esophageal reflux disease without esophagitis Status: Inactive Assessment and Plan: PPI as needed (6) Anemia: Qualifiers: Anemia type: iron deficiency Iron deficiency anemia type: unspecified iron deficiency Qualified Code(s): D50.9 - Iron deficiency anemia, unspecified Code(s): D64.9 - Anemia, unspecified Status: Acute Assessment and Plan: Chronic iron deficient anemia H/H trending down to 6.0/20.2 and was transfused 2 units of PRBC's. Continue iron supplementation. Recheck H&H in AM prior to discharge. (7) Hyperlipidemia: Qualifiers: Hyperlipidemia type: mixed hyperlipidemia Qualified Code(s): E78.2 - Mixed hyperlipidemia Code(s): E78.5 - Hyperlipidemia, unspecified Status: Acute Assessment and Plan: Continue home medications Time Spent With Patient Time with patient: 15 - 25 minutes Subjective Date/time seen: 09/11/21 0910 This pt. was examined at the bedside in interval assessment. She has no new complaints, states her pain is controlled and she has no CP, dyspnea, N/V/D. Her marion catheter is being removed today and she will be allowed to urinate freely. Pt. will be going to [facility] tomorrow after she has been off of IV pain meds for 24 hours. She is agreeable to this POC. Review of Systems Review of Systems: A 12 point ROS was performed and is otherwise negative with exception of what is noted in HPI. All systems reviewed & are unremarkable except as noted in HPI and below Exam Const: General: comfortable and no acute distress HENMT: Mouth: Yes moist mucous membranes Eyes: Sclera: scleral abnormality Neck: Neck: supple and no JVD Lymphatic: l
[2021-09-11] MEDS: ACETAMINOPHEN 500 MG TABLET PO (11:27)
[2021-09-11 14:00] VITALS: BP 136/64; PULSE 83; RESP 16; TEMP 36.4; O2SAT 94
--- NOTE | 2021-09-11 15:13 | PM.PNORT ---
Progress Note: A&P Additional Plan POD 3 IMPROVING. WILL CONTINUE TO OBSERVE HGB. PLAN DC [facility] IF STABLE Subjective Subjective Date/Time Seen: 09/11/21 15:13POD 3 DOING WELL. HGB IMPROVED. NO CP OR SOB. NO CALF PAIN Exam Extrem: Other: VSS AFEBRILE DRESSING DRY NV INTACT NEG HOMANS SIGN, THIGH AND CALF SOFT Objective Data Vital Signs Vital Signs: Vital Signs - 24 hr 09/10/21 15:52 09/10/21 16:52 09/10/21 19:57 Temperature 36.4 C L 36.3 C L 36.2 C L Pulse Rate 87 90 96 Respiratory Rate 16 16 18 Blood Pressure 104/60 120/65 142/67 H Pulse Oximetry 99 100 98 09/11/21 04:12 09/11/21 14:00 Temperature 36.8 C 36.4 C Pulse Rate 95 83 Respiratory Rate 16 16 Blood Pressure 114/73 136/64 Pulse Oximetry 99 94 Intake/Output Intake/Output: Intake & Output 09/08/21 09/09/21 09/10/21 09/11/21 23:59 23:59 23:59 23:59 Intake Total 3030 1930 2195 1540 Output Total 1075 1800 3300 3150 Balance 1954 130 -1105 -1610 Meds/Results Medications: Active Medications Generic Name Dose Route Start Last Admin Trade Name Freq PRN Reason Stop Dose Admin Acetaminophen 500 mg 09/08/21 21:49 09/11/21 11:27 Acetaminophen 500 Mg Tablet PO 500 mg Q6H PRN Administration Moderate Pain (Scale Score 5-6) Hydrocodone Bitart/Acetaminophen 1 tab 09/08/21 21:49 09/11/21 12:15 Hydrocodone/Acetaminophen (*Crx) 7.5-325 Mg Tablet PO 1 tab Q3H PRN Administration Pain Rated 4-6 Al Hydrox/Mg Hydrox/Simethicone 30 ml 09/08/21 21:49 Mag Hydrox/Al Hydrox/Simeth 30 Ml Udc PO Q6H PRN Indigestion Apixaban 5 mg 09/09/21 09:00 09/11/21 08:10 Apixaban 5 Mg Tablet PO 5 mg Q12HR TERESITA Administration Ascorbic Acid 500 mg 09/09/21 09:00 09/11/21 08:10 Ascorbic Acid 500 Mg Tablet PO 500 mg DAILY TERESITA Administration Benzocaine 1 lozenge 09/10/21 13:44 09/11/21 05:39 Benzocaine/Menthol (*Bkc) 18 Ea Lozenge PO 1 lozenge PRN PRN Administration Sore Throat Diazepam 5 mg 09/08/21 21:49 Diazepam (*Crx) 5 Mg Tablet PO Q8H PRN Muscle Spasm Ferrous Sulfate 324 mg 09/09/21 09:00 09/11/21 08:10 Ferrous Sulfate 324 Mg Tablet PO 324 mg DAILY TERESITA Administration Hydroxyzine Pamoate 50 mg 09/08/21 21:49 09/10/21 00:27 Hydroxyzine Pamoate 25 Mg Capsule PO 50 mg Q4H PRN Administration Itching Magnesium Gluconate 27 mg 09/11/21 21:00 Magnesium 27 Mg Tablet (500 Mg Mag Gluconate) PO 10/09/21 08:59 HS [facility] Magnesium Hydroxide 30 ml 09/08/21 21:49 09/11/21 05:44 Magnesium Hydroxide Susp 30 Ml Udc PO 30 ml BID PRN Administration Constipation Multivitamins/Calcium 1 tablet 09/09/21 09:00 09/11/21 08:10 Therapeutic Multivitamins/Minerals Tab (*Bkc) PO 1 tablet DAILY [facility] Administration Naloxone HCl 0.1 mg 09/08/21 21:49 Naloxone Hcl 0.4 Mg/Ml Vial IV PUSH Q2M PRN Opiate Reversal Ondansetron HCl 4 mg 09/07/21 21:27 Ondansetron Inj 4 Mg/2 Ml Vial IV PUSH Q4H PRN Nausea Ondansetron HCl 4 mg 09/08/21 21:49 Ondansetron Inj 4 Mg/2 Ml Vial IV PUSH Q4H PRN Nausea And Vomiting Polyethylene Glycol 17 gm 09/09/21 09:00 09/11/21 09:32 Polyethylene Glycol 3350 17 Gm Powd.Pack PO 17 gm QAM [facility] Administration Senna/Docusate Sodium 2 tab 09/09/21 09:00 09/11/21 09:33 Senna/Docusate Sodium Tablet PO Not Given BID [facility] Simvastatin 10 mg 09/11/21 21:00 Simvastatin 10 Mg Tablet PO HS [facility] Vitamin D 2,000 units 09/09/21 09:00 09/11/21 08:10 Cholecalciferol 1,000 Units Tablet PO 2,000 units DAILY TERESITA Administration Radiology Results: ITS Impressions Hip/Pelvis X-Ray 09/07/21 20:20 IMPRESSION: Comminuted intertrochanteric fracture of left femur Chest X-Ray 09/07/21 20:21 IMPRESSION: No active pulmonary disease Large hiatal hernia Intraoperative X-Ray 09/08/21 22:27 IMPRESSION: ORIF left intertrochanteric
[2021-09-11 21:10] VITALS: BP 113/67; PULSE 89; RESP 18; TEMP 36.4; O2SAT 99
[2021-09-11] MEDS: SIMVASTATIN 10 MG TABLET PO (21:10)
[2021-09-11] MEDS: MAGNESIUM 27 MG TABLET (500 MG MAG GLUCONATE) PO (21:10)
[2021-09-12] MEDS: HYDROcodone/acetaminophen (*CRX) 7.5-325 MG TABLET 1 TAB PO ×4 (03:09→13:22)
[2021-09-12 04:17] VITALS: BP 118/65; PULSE 84; RESP 18; TEMP 36.4; O2SAT 100
[2021-09-12 05:26] LABS: Basophils Percent Auto 0.6 % (0.2-1.2); Eosinophils Absolute Auto 0.2 K/mm3 (0-0.3); Eosinophils Percent Auto 2.4 % (0-4.4); Hematocrit 25.4 % (37.0-47.0); Hemoglobin 8.1 g/dL (12.0-15.0); Immature Granulocyte Absolute 0.06 K/mm3 (0.00-0.031); Immature Granulocyte Percent A 0.9 % (0-0.5); Lymphocytes Absolute Auto 0.69 K/mm3 (0.9-3.2); Lymphocytes Percent Auto 10.2 % (18.3-44.2); Mean Corpuscular HGB Conc 31.9 g/dl (32-36); Mean Corpuscular Hemoglobin 29.9 pg (26-34); Mean Corpuscular Volume 93.7 fl (80-100); Mean Platelet Volume 9.4 fl (7.4-10.4); Monocytes Absolute Auto 1.1 K/mm3 (0.1-0.6); Monocytes Percent Auto 16.1 % (2.6-8.5); Neutrophils Absolute Auto 4.8 K/mm3 (1.3-6.7); Neutrophils Percent Auto 69.8 % (45.5-73.1); Nucleated Red Blood Cells Perc 0.3 % (0.0-0.2); Platelet Count Result 221 k/mm3 (150-375); Red Blood Count 2.71 M/mm3 (4.2-5.4); White Blood Count 6.8 K/mm3 (4.5-10.0)
--- NOTE | 2021-09-12 07:48 | PM.DS ---
DS: Admitting Diagnosis Discharge Date 09/12/2021 Admitting Diagnosis 1) Accidental Fall 2) Closed Hip Fracture 3) Atrial Fibrillation 4) GERD DS: Discharge Diagnosis Discharge Diagnosis (1) Status post-operative repair of closed fracture of left hip: Code(s): Z98.890 - Other specified postprocedural states; Z87.81 - Personal history of (healed) traumatic fracture Status: Acute Assessment and Plan: Stable, progressing, will discharge to rehab today. Follow up with ortho for continued management. (2) Fall: Qualifiers: Encounter type: initial encounter Qualified Code(s): W19.XXXA - Unspecified fall, initial encounter Code(s): W19.XXXA - Unspecified fall, initial encounter Status: Acute Assessment and Plan: Mechanical fall Hip xray: Comminuted intertrochanteric fracture of left femur Eliquis restarted Surgical intervention 09/08/21 Fall precautions (3) Closed hip fracture: Qualifiers: Encounter type: initial encounter Laterality: left Qualified Code(s): S72.002A - Fracture of unspecified part of neck of left femur, initial encounter for closed fracture Code(s): S72.009A - Fracture of unspecified part of neck of unspecified femur, initial encounter for closed fracture Status: Acute Assessment and Plan: Mechanical fall Hip xray: Comminuted intertrochanteric fracture of left femur Ortho consulted thank you for your help [place] prn pain. regular diet Eliquis restarted Fall precautions Pain management Discharge to rehab today. 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 Anticoagulation has been restarted. (5) Anemia: Qualifiers: Anemia type: iron deficiency Iron deficiency anemia type: unspecified iron deficiency Qualified Code(s): D50.9 - Iron deficiency anemia, unspecified Code(s): D64.9 - Anemia, unspecified Status: Acute Assessment and Plan: Chronic iron deficient anemia transfused 2 units of PRBC's. Continue iron supplementation. H&H stable (6) Hyperlipidemia: Qualifiers: Hyperlipidemia type: mixed hyperlipidemia Qualified Code(s): E78.2 - Mixed hyperlipidemia Code(s): E78.5 - Hyperlipidemia, unspecified Status: Acute Assessment and Plan: Continue home medications DS: Summary Hospital Course Reason for hospitalization: Accidental fall with fracture of left femoral neck. Hospital Course: This very pleasant 65 year old female patient with history of dyslipidemia, iron deficiency anemia, gastroesophageal reflux disease, atrial fibrillation on chronic anticoagulation presented to the ER on 09/07/2021 after sustaining a ground level fall at home and a fracture of the left femoral neck. She was taken to the OR by Dr. Isabel on 09/08/21 and had am insertion of a Gamma maryam into the left hip. Pt's post-operative course was complicated by needing two units of blood for transfusion for Hgb of 6.0. SInce then her Hgb has been stable, fluctuating in the 8's without any overt bleeding. She has been taking [place] for her pain and is working well with PT. Her Eliquis has been restarted, and today she is stable for discharge to [facility]. Report was given to Dr. Lemus at [facility]. Status at Discharge Overall status at discharge: patient is progressing back to baseline Time Spent with Patient Time attestation: Total time spent providing and/or coordinating discharge services: 35 minutes Time spent: Greater than 30 minutes Exam Narrative: Const: General: comfortabl
[2021-09-12] MEDS: FERROUS SULFATE 324 MG TABLET PO (08:01)
[2021-09-12] MEDS: APIXABAN 5 MG TABLET PO (08:01)
[2021-09-12] MEDS: CHOLECALCIFEROL 1,000 UNITS TABLET 2000 UNITS PO (08:01)
[2021-09-12] MEDS: ASCORBIC ACID 500 MG TABLET PO (08:01)
[2021-09-12] MEDS: THERAPEUTIC MULTIVITAMINS/MINERALS TAB (*BKC) 1 TABLET PO (08:01)
[2021-09-12] MEDS: polyethylene glycoL 3350 17 GM POWD.PACK PO (08:02)
[2021-09-12 11:21] LABS: EDCOVIDSCREEN Negative (Negative)
== END 2021-09-12 14:50 | DRG 482 ==
LOC: ANHED 21:25 → ANH3MED 21:48
PROVIDERS: Nurse Practitioner; Nurse Practitioner Adult Health; Orthopaedic Surgery; Admitting Provider Internal Medicine; Emergency Provider Family Medicine; PCP Internal Medicine; Visit Provider Nurse Practitioner Adult Health
PROC: 0QS734Z Reposition Left Upper Femur with Internal Fixation Device, Percutaneous Approach (ICD-10-PCS; CPT 27245; principal; 2021-09-08 16:30)
DX: S72.002A Fracture of unspecified part of neck of left femur, initial encounter for closed fracture (principal); W19.XXXA Unspecified fall, initial encounter; Z20.822 Contact with and (suspected) exposure to COVID-19; K21.9 Gastro-esophageal reflux disease without esophagitis; I48.0 Paroxysmal atrial fibrillation; E78.5 Hyperlipidemia, unspecified; I10 Essential (primary) hypertension; F10.10 Alcohol abuse, uncomplicated; G47.30 Sleep apnea, unspecified; D50.9 Iron deficiency anemia, unspecified; M85.80 Other specified disorders of bone density and structure, unspecified site; Z79.899 Other long term (current) drug therapy; Z79.01 Long term (current) use of anticoagulants; Z87.891 Personal history of nicotine dependence
CPT/HCPCS: 36415; 36430; 71045; 73502; 80048; 80053; 82607; 82728; 82746; 83540; 83550; 83615; 83735; 84443; 84466; 85014; 85018; 85025; 85610; 86850; 86900; 86901; 86920; 87426; 93005; 96361; 96374; 96375; 97110; 97116; 97161; 97165; 97530; 97535; 99285; A9270; C1713; C9803; J0131; J0330; J0690; J1100; J1170; J1885; J2250; J2270; J2370; J2405; J2704; J3010; J3360; J3370; J7030; J7050; J7120; P9016

== ENCOUNTER 2022-04-30 22:06 | Inpatient (IN) | payer MEDICARE, BC, SELFPAY ==
--- NOTE | ~2022-04-30 | XR_ITS ---
EXAMINATION: XR knee LT 2V INDICATION: Left knee pain TECHNIQUE: Two views of the left knee are obtained on three radiographs. COMPARISON: None available FINDINGS: There are changes of total knee arthroplasty. There is a partially imaged antegrade intrame dullary maryam and left femur. There is an acute spiral fracture involving the distal half of the left f emur as detailed in the femur radiograph. No acute abnormality of the knee is identified. IMPRESSION: 1. Acute spiral fracture involving the distal half of the left femur. 2. Unremarkable left knee post total arthroplasty. Reviewed, dictated and finalized at location B. T END ARCHITECT
--- NOTE | ~2022-04-30 | XR_ITS ---
EXAMINATION: XR hip LT 2V w AP pelvis INDICATION: Left hip pain after fall TECHNIQUE: AP view the pelvis and two views of the left hip are obtained. COMPARISON: 12/15/2021 FINDINGS: There is antegrade intramedullary maryam and interlocking intratrochanteric screw fixation of the left femur. There is a healing intertrochanteric fracture of the left femur. The lesser trochante r exists as a healing but separate fracture fragment. There is a partially imaged displaced fracture of the left femoral shaft. IMPRESSION: 1. Healing intertrochanteric fracture of the left femoral neck. 2. Partially imaged displaced fracture of the left femoral shaft. Reviewed, dictated and finalized at location B. FILTER OPERATOR HELPER
--- NOTE | ~2022-04-30 | XR_ITS ---
EXAMINATION: XR surgery orthopedic DATE: 05/02/2022 16:00 REFRIGERATION SERVICE TECHNICIAN INDICATION: REVISION LT FEMORAL NAIL . TECHNIQUE: 4 fluoroscopic images of the left femur were obtained during revision of left femoral nail performed by the surgeon. I was not present in the operating room. Fluoroscopy exposure time was 946 .3 seconds. Air Kerma 101.38 mGy. DAP 1.79 mGym2. COMPARISON: 05/01/2022 FINDINGS: Intramedullary nail replacement, traversing old intertrochanteric and acute distal femoral fractures. Partially visualized total knee arthroplasty. IMPRESSION: Fluoroscopic documentation of left femoral nail revision. Please refer to the operative note for comp lete procedural details . Reviewed, dictated and finalized at location K. IGERATION SERVICE TECHNICIAN IMPRESSION: Fluoroscopic documentation of left femoral nail revision. Please refer to the o perative note for complete procedural details .
--- NOTE | ~2022-04-30 | CT_ITS ---
EXAMINATION: CT brain wo con DATE: 05/01/2022 00:20 INDICATION: Head injury. TECHNIQUE: Computed tomography (CT) of the head was performed without intravenous contrast. The mA wa s adjusted according to patient size. Iterative reconstruction technique was employed. The dose-lengt h product was 681.00 mGy-cm. COMPARISON: None FINDINGS: There is no intracranial hemorrhage, acute infarction, or abnormal intracranial mass lesion . The ventricles are normal in size. There are likely changes of ocular lens replacement surgeries. T here is mild mucosal thickening in the paranasal sinuses. The mastoid air cells are normal. IMPRESSION: 1. Normal brain. Reviewed, dictated and finalized at location A. ESTATE INSPECTOR IMPRESSION: 1. Normal brain.
--- NOTE | ~2022-04-30 | XR_ITS ---
EXAMINATION: XR femur LT min 2V INDICATION: Left leg pain, initial encounter TECHNIQUE: Two views of the left femur are obtained on four radiographs. COMPARISON: 12/15/2021 FINDINGS: There is antegrade intramedullary maryam and interlocking intratrochanteric screw fixation of the left femur. There is an acute spiral fracture involving the distal half of the left femur. The di stal fracture fragment is medially displaced by approximately 1.8 cm and anteriorly displaced by appr oximately 0.7 cm. The intramedullary maryam is intact but demonstrates varus bowing in its distal half. There are changes of total knee arthroplasty. A healing intertrochanteric fracture of the left hip is noted. IMPRESSION: 1. Acute spiral fracture involving the distal left femur with mild bowing of the otherwise intact int ramedullary maryam. Reviewed, dictated and finalized at location B. 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 Acute spiral fracture involving the distal left femur with mild bowing of th e otherwise intact intramedullary maryam.
[2022-04-30 22:25] VITALS: BP 132/75; PULSE 87; RESP 18; TEMP 37.2; O2SAT 97
--- NOTE | 2022-04-30 23:55 | ED.FALL ---
HPI - Fall General Chief Complaint: Fall <Coni Bravo PA-C - Last Filed: 05/01/22 03:30> Stated Complaint: fell/glf <Coni Bravo PA-C - Last Filed: 05/01/22 03:30> Time Seen by Provider: 04/30/22 23:31 <Coni Bravo PA-C - Last Filed: 05/01/22 03:30> Source: patient <ALISON Dalton Last Filed: 05/01/22 03:30> Mode of arrival: EMS <ALISON Dalton Last Filed: 05/01/22 03:30> Limitations: no limitations <Coni Bravo PA-C - Last Filed: 05/01/22 03:30> History of Present Illness HPI Narrative: This is a 66-year-old female that presents to the emergency department after a ground-level fall today. Reports she was bending over and lost her balance and fell. She hit her chin on a metal straw that was in her drink. She did not lose consciousness. She is on a blood thinner for atrial fibrillation. Reports she got her left leg tangled up underneath her. Since she has had left leg pain from her hip to her knee. She has had previous surgery on this leg with Dr. Isabel. Denies visual changes, vomiting, numbness, or weakness. <Coni Bravo PA-C - Last Filed: 05/01/22 03:30> Related Data Home Medications: Home Medications Medication Instructions Recorded Confirmed apixaban 5 mg tablet (Eliquis) 5 mg PO BID 03/11/20 12/15/21 cholecalciferol (vitamin D3) 50 50 mcg PO DAILY 04/02/20 12/15/21 mcg (2,000 unit) capsule ferrous sulfate 324 mg (65 mg 325 mg PO DAILY 04/27/20 12/15/21 iron) tablet,delayed release magnesium 250 mg tablet 500 mg PO DAILY 01/20/21 12/15/21 [id number] ac 400 1 tablet PO DAILY 01/20/21 12/15/21 mcg-calcium carb 500 mg-vit K1 20 mcg tablet (Women's 50 Plus Multivitamin) ascorbic acid (vitamin C) 500 mg 500 mg PO DAILY 08/29/21 12/15/21 tablet calcium carbonate 500 mg calcium 500 mg PO DAILY 12/16/21 (1,250 mg) tablet zinc 50 mg tablet 50 mg PO DAILY 12/16/21 <Coni Bravo PA-C - Last Filed: 05/01/22 03:30> Allergies/Adverse Reactions: Allergies Allergy/AdvReac Type Severity Reaction Status Date / Time iodine Allergy Unknown Unknown Verified 12/15/21 14:58 povidone Allergy Unknown Itching Verified 12/15/21 14:58 povidone-iodine Allergy Unknown Itching Verified 12/15/21 14:58 soap Allergy Unknown Itching Verified 12/15/21 14:58 <Coni Bravo PA-C - Last Filed: 05/01/22 03:30> Review of Systems Review of Systems: CONSTITUTIONAL: Denies fever EYES: Denies visual changes CARDIOVASCULAR: Denies chest pain RESPIRATORY: Denies dyspnea. GASTROINTESTINAL: Denies abdominal pain, vomiting GENITOURINARY: Denies dysuria SKIN: Denies rash MUSCULOSKELETAL: Reports joint pain and myalgia. Denies back pain NEUROLOGIC: Denies numbness, or weakness. PSYCHIATRIC: Denies anxiety <Coni Bravo PA-C - Last Filed: 05/01/22 03:30> All systems reviewed & are unremarkable except as noted in HPI and below <Coni Bravo PA-C - Last Filed: 05/01/22 03:30> [facility] Past Medical History Medical History: Medical History (Updated 05/01/22 @ 03:30 by Coni Bravo PA-C) Abnormal hemoglobin Alcohol abuse Alcohol abuse Atrial fibrillation DJD of right shoulder GERD (gastroesophageal reflux disease) History of one miscarriage History of vaginal delivery x 4 Hyperlipidemia Hypertension Irregular heart beat Postoperative anemia Sleep apnea <Coni Bravo PA-C - Last Filed: 05/01/22 03:30> Surgical History Surgical History: Surgical History History of cataract surgery History of dilation and curettage History of knee replacement, total Lft knee 02/03/21 History of tubal ligation <Coni Bravo PA-C - Last Filed: 05/01/22 03:30> Family History Family History: Family History Mother Patient's mother is Father Dar
[2022-05-01] MEDS: fentaNYL CITRATE INJ (*CRX) 100 MCG/2 ML VIAL 50 MCG IV PUSH (00:02)
[2022-05-01] MEDS: HYDROmorphone HCL INJ (*CRX) 1 MG/ML SYR 0.5 MG IV PUSH ×2 (01:38→04:29)
[2022-05-01 02:24] LABS: Basophils Absolute Auto 0.1 K/mm3 (0.0-0.1); Basophils Percent Auto 0.4 % (0.2-1.2); Hematocrit 37.1 % (37.0-47.0); Hemoglobin 11.8 g/dL (12.0-15.0); Immature Granulocyte Absolute 0.04 K/mm3 (0.00-0.031); Immature Granulocyte Percent A 0.3 % (0-0.5); Lymphocytes Absolute Auto 0.68 K/mm3 (0.9-3.2); Lymphocytes Percent Auto 5.9 % (18.3-44.2); Mean Corpuscular HGB Conc 31.8 g/dl (32-36); Mean Corpuscular Hemoglobin 31.5 pg (26-34); Mean Corpuscular Volume 98.9 fl (80-100); Mean Platelet Volume 9.2 fl (7.4-10.4); Monocytes Absolute Auto 0.8 K/mm3 (0.1-0.6); Monocytes Percent Auto 7.2 % (2.6-8.5); Neutrophils Percent Auto 86.2 % (45.5-73.1); Platelet Count Result 255 k/mm3 (150-375); Red Blood Count 3.75 M/mm3 (4.2-5.4); Red Cell Distribution Width 13.6 % (11.5-14.5); White Blood Count 11.6 K/mm3 (4.5-10.0)
[2022-05-01 02:36] LABS: Anion Gap 13 mmol/L (8-16); Blood Urea Nitrogen 15 mg/dL (7-17); Calcium 8.6 mg/dL (8.4-10.2); Carbon Dioxide 19 mmol/L (22-30); Chloride 105 mmol/L (98-107); Estimated CRCL calculation 60 ml/min; Estimated Glomerular Filt Rate > 60; Glucose 106 mg/dL (65-110); Sodium 137 mmol/L (137-145)
[2022-05-01 03:02] LABS: SARS-CoV-2 RNA PCR Negative
[2022-05-01] MEDS: TETANUS,DIPHTHERIA,AC PERTUSSIS ADULT (0.5 ML) BOOSTRIX IM (03:18)
[2022-05-01 03:19] VITALS: BP 138/72; PULSE 87; RESP 18; O2SAT 98
[2022-05-01 04:30] VITALS: BP 130/82; PULSE 88; RESP 15; TEMP 37.2; O2SAT 99
--- NOTE | 2022-05-01 04:47 | PM.IMHP ---
H&P: HPI History of Present Illness Date/Time: 05/01/22 04:47 Chief Complaint: Fall Narrative: This is a 66-year-old female with past medical history significant for degenerative joint disease, patient is status post left knee total arthroplasty, presents to the emergency room after she had a fall while trying to get up from a kneeling position which resulted in patient falling on her left leg and laceration wound to her chin no loss of consciousness. Preliminary workup was significant for spiral femur fracture on the left side distal. Unable to bear weight, unable to get back up Patient has been in her usual state of health. Review of Systems Review of Systems: fall, unable to bear weight on the left leg. Constitutional: Constitutional: Denies chills, Denies fever(s), Denies malaise, Denies night sweats and Denies weakness Eyes: Eyes: Denies change in vision ENT: Denies dysphagia, Denies vertigo, Denies dizziness and Denies odynophagia Cardiovascular: Cardiovascular: Denies chest pain, Denies dyspnea and Denies dyspnea on exertion Respiratory: Respiratory: Denies chest congestion and Denies cough Gastrointestinal: Gastrointestinal: Denies abdominal pain, Denies dyspepsia, Denies heartburn, Denies diarrhea, Denies nausea and Denies vomiting Genitourinary: Genitourinary: Denies dysuria Musculoskeletal: Musculoskeletal: Reports arthralgias, Reports limited range of motion and Reports other ( left knee) Integumentary/Breasts: Skin/Breast: Reports wounds ( laceration to the chin) Neurologic: Denies vertigo, Denies dizziness, Denies focal weakness and Denies Sensory deficit (Neuro) Psychiatric: Psychiatric: Reports no additional psychiatric complaints and Reports as per HPI Endocrine: Endocrine: Denies cold intolerance, Denies flushing, Denies heat intolerance, Denies polyphagia, Denies polydipsia and Denies palpitations Hematologic/Lymphatic: Hematologic/Lymphatic: Reports no additional hematologic/lymphatic complaints and Reports as per HPI Allergic/Immunologic: Allergic/Immunologic: Reports no additional allergic/immunologic complaints and Reports as per HPI PMFSH Past Medical History Medical History (Updated 05/01/22 @ 03:30 by Coni Bravo PA-C) Abnormal hemoglobin Alcohol abuse Alcohol abuse Atrial fibrillation DJD of right shoulder GERD (gastroesophageal reflux disease) History of one miscarriage History of vaginal delivery x 4 Hyperlipidemia Hypertension Irregular heart beat Postoperative anemia Sleep apnea Surgical History Surgical History History of cataract surgery History of dilation and curettage History of knee replacement, total Lft knee 02/03/21 History of tubal ligation Family History Family History Mother Patient's mother is Father Patient's father is , Onset Age: 97 Grandparent Family history of malignant neoplasm of breast in first degree relative Family history of malignant neoplasm Sibling Cerebrovascular accident Social History Social History Smoking packs per day: 0.5 Smoking cigarettes per day: 10.0 Years smoked: 2 Smoking pack-years: 1.00 Smoking status: Former smoker Tobacco type: cigarettes Second hand tobacco smoke exposure: No Smoking end date: 06/25/79 Alcohol intake: current Drinks per week: 21 Substance use: never Substance use type: does not use Gender identity (if verbalized by the patient): Female Spiritual care concerns: No Meds Home Medications and Allergies Home Medications Medication Instructions Recorded Confirmed Type apixaban 5 mg tablet (Eliquis) 5 mg PO BID 03/11/20 12/15/21 History cholecalciferol (vitamin D3) 50 50 mcg PO DAILY 04/02/20 12/15/21 History mcg (2,000 unit) capsule ferrous jean
[2022-05-01] MEDS: HYDROmorphone HCL INJ (*CRX) 1 MG/ML SYR IV PUSH (05:28)
[2022-05-01 05:32] VITALS: O2SAT 99; BMI 26.7
--- NOTE | 2022-05-01 05:32 | ADMGEN ---
This patient, Marie Pulliam, was admitted to 3 [facility] Surg Room 317-01. Patient/family oriented to hospital policies and general routines including ID bracelet, bed and alarms, visiting hours, pain management, procedures, bathroom and other care routines, personal items, smoking policy, room service/diet, and visiting hours. Information on how to activate the Rapid Response Team has been discussed. Patient/Family are encouraged to report perceived risks to care and to ask questions if they do not understand what they are told or what they should do.
[2022-05-01 06:00] VITALS: BP 130/77; PULSE 85; RESP 17; TEMP 36.4; O2SAT 99
[2022-05-01 07:15] LABS: Glucose Point of Care 109 mg/dl (65-105)
[2022-05-01] MEDS: MORPHINE SULFATE (*CRX) 2 MG/ML INJ IV PUSH ×5 (09:05→21:30)
--- NOTE | 2022-05-01 11:58 | PM.CNOR ---
Assessment and Plan Assessment and plan (1) Closed left femoral fracture: Qualifiers: Encounter type: initial encounter Femur location: shaft Fracture alignment: displaced Fracture morphology: spiral Qualified Code(s): S72.342A - Displaced spiral fracture of shaft of left femur, initial encounter for closed fracture Code(s): S72.92XA - Unspecified fracture of left femur, initial encounter for closed fracture Status: Acute Assessment and Plan: History, exam and radiographs reviewed with the patient. Radiographs of the left femur reveal an acute spiral fracture involving the distal half of the left femur. The fracture type and injury as well as radiographs discussed with the patient. Operative and nonoperative treatment options reviewed. The patient elects for operative treatment. Discussed Left Closed Reduction, Revision of femoral nail by Dr. Isabel Risks of surgery including but not limited to neurovascular damage, wound complications, blood clot, pulmonary embolus, stroke, myocardial infarction, anesthetic risks up to and including were reviewed. Continued pain and possible dysfunction were explained. No guarantees were offered. The patient understands and wishes to proceed. Plan: Closed Reduction, Revision of Femoral Nail, LEFT Leg by Dr. Isabel NPO at Midnight Obtain Consent Pain controls Hold Anticoagulation (2) Alcohol abuse: Code(s): F10.10 - Alcohol abuse, uncomplicated Status: Acute Assessment and Plan: [place] Plan Reviewed radiographs, assessment, health history, surgical history with attending MD and consulted physician Dr. Isabel. Agrees with current plan as detailed above. No further recommendations at this time. History of Present Illness HPI Consult date: 05/01/22 Consult reason: fracture Chief complaint: left femur fracture Narrative: 66-year-old female admitted after a fall at home resulting in a left femur fracture. History, exam and radiographs reviewed with the patient. Patient is a previous patient of Dr. Isabel'denisa after a left hip fracture in August of 2021 resulting in in insertion of a gamma maryam of the left hip. She also have a history of a left total knee arthroplasty which was performed in 2020. Per the patient and history, she was at home on her floor going to get something out from underneath her bed when her legs gave out and she felt extreme pain in the left leg. She also cut her chin on a metal straw. Radiographs from the ED reveal an acute spiral fracture involving the distal half of the left femur. Review of Systems Constitutional: Constitutional: Reports no additional constitutional complaints, Denies chills, Denies fatigue, Denies fever(s), Denies headache(s) and Denies weakness Eyes: Eyes: Denies change in vision ENT: Reports Normal hearing present and Denies headache(s) Cardiovascular: Cardiovascular: Denies chest pain and Denies dyspnea Respiratory: Respiratory: Denies cough, Denies dyspnea and Denies wheezing Gastrointestinal: Gastrointestinal: Denies constipation, Denies diarrhea, Denies nausea and Denies vomiting Genitourinary: Genitourinary: Denies hematuria, Denies dysuria and Denies urinary urgency Musculoskeletal: Musculoskeletal: Reports as per HPI, Denies numbness and Denies tingling Integumentary/Breasts: Skin/Breast: Reports as per HPI Neurologic: Reports as per HPI, Reports Normal hearing present, Denies headache(s), Denies numbness, Denies tingling and Denies weakness Psychiatric: Psychiatric: Reports no additional psychiatric complaints Endocrine: Endocrine: Reports no additional endocrine complaints and Denies fatigue Hematologic/Lymphatic: Hematologic/Lymphatic: Reports no additional hematologic/lymphatic complaints Allergic/Immunologic: Allergic/Immunologic: Reports no additional allergic/immunologic complaints and Denies wheezing [facility] Past Medical History Medical History (Reviewed 05/01/22 @ 12:
[2022-05-01] MEDS: chlordiazePOXIDE (*CRX) 25 MG CAPSULE 50 MG PO ×2 (12:09→17:26)
[2022-05-01 12:31] LABS: Glucose Point of Care 130 mg/dl (65-105)
[2022-05-01 14:00] VITALS: BP 122/75; PULSE 87; RESP 20; TEMP 36.4; O2SAT 98
[2022-05-01] MEDS: THIAMINE HCL 200 MG/2 ML VIAL 100 MG IV PUSH (16:21)
[2022-05-01 18:26] LABS: Glucose Point of Care 123 mg/dl (65-105)
--- NOTE | 2022-05-01 19:28 | PM.EVENT ---
Event Note Event Note Event Note: follow up rounding note pt doing ok , we discussed signs and symptoms of EtOH withdrawal. pt is a daily drinker and admits that she has fequently thought about cutting back or stopping but has not done so. she denies any h/o EtOH withdrawal percocet and IV morphine added to MAR for tx of pain associated w femur fx
[2022-05-01 22:00] VITALS: BP 126/92; PULSE 84; RESP 18; TEMP 36.5; O2SAT 99
[2022-05-02] VITALS (12 sets, daily range): BP systolic 96–139; BP diastolic 56–82; PULSE 81–88; RESP 16–22; TEMP 36.2–37; O2SAT 92–100
[2022-05-02] MEDS: chlordiazePOXIDE (*CRX) 25 MG CAPSULE 50 MG PO ×2 (01:09→05:53)
[2022-05-02] MEDS: oxyCODONE/ACETAMINOPHEN (*CRX) 10-325 MG TABLET 1 TAB PO ×2 (01:09→20:14)
[2022-05-02] MEDS: MORPHINE SULFATE (*CRX) 2 MG/ML INJ IV PUSH ×2 (05:53→12:09)
[2022-05-02 06:35] LABS: Basophils Absolute Auto 0.1 K/mm3 (0.0-0.1); Basophils Percent Auto 0.7 % (0.2-1.2); Eosinophils Absolute Auto 0.1 K/mm3 (0-0.3); Eosinophils Percent Auto 1.3 % (0-4.4); Hematocrit 35.2 % (37.0-47.0); Hemoglobin 10.8 g/dL (12.0-15.0); Immature Granulocyte Absolute 0.02 K/mm3 (0.00-0.031); Immature Granulocyte Percent A 0.3 % (0-0.5); Lymphocytes Absolute Auto 0.94 K/mm3 (0.9-3.2); Lymphocytes Percent Auto 13.3 % (18.3-44.2); Mean Corpuscular HGB Conc 30.7 g/dl (32-36); Mean Corpuscular Hemoglobin 31.9 pg (26-34); Mean Corpuscular Volume 103.8 fl (80-100); Mean Platelet Volume 9.1 fl (7.4-10.4); Monocytes Absolute Auto 1.1 K/mm3 (0.1-0.6); Monocytes Percent Auto 14.8 % (2.6-8.5); Neutrophils Absolute Auto 4.9 K/mm3 (1.3-6.7); Neutrophils Percent Auto 69.6 % (45.5-73.1); Platelet Count Result 181 k/mm3 (150-375); Red Blood Count 3.39 M/mm3 (4.2-5.4); Red Cell Distribution Width 13.9 % (11.5-14.5); White Blood Count 7.1 K/mm3 (4.5-10.0)
[2022-05-02 06:46] LABS: Anion Gap 7 mmol/L (8-16); Blood Urea Nitrogen 11 mg/dL (7-17); Calcium 8.5 mg/dL (8.4-10.2); Carbon Dioxide 26 mmol/L (22-30); Chloride 103 mmol/L (98-107); Estimated CRCL calculation 60 ml/min; Estimated Glomerular Filt Rate > 60; Glucose 104 mg/dL (65-110); Magnesium 2.2 mg/dL (1.6-2.3); Potassium 3.8 mmol/L (3.4-5.0); Sodium 136 mmol/L (137-145)
[2022-05-02] MEDS: THIAMINE HCL 200 MG/2 ML VIAL 100 MG IV PUSH (08:21)
--- NOTE | 2022-05-02 09:44 | PM.IMPN ---
Progress Note: A&P Assessment and Plan (1) Closed left femoral fracture: Qualifiers: Encounter type: initial encounter Femur location: shaft Fracture alignment: displaced Fracture morphology: spiral Qualified Code(s): S72.342A - Displaced spiral fracture of shaft of left femur, initial encounter for closed fracture Code(s): S72.92XA - Unspecified fracture of left femur, initial encounter for closed fracture Status: Acute (2) Laceration: Status: Acute (3) Alcohol abuse: Code(s): F10.10 - Alcohol abuse, uncomplicated Status: Acute (4) Atrial fibrillation: Qualifiers: Atrial fibrillation type: paroxysmal Qualified Code(s): I48.0 - Paroxysmal atrial fibrillation Code(s): I48.91 - Unspecified atrial fibrillation Status: Acute (5) Back Pain: Qualifiers: Back pain laterality: left Back pain location: low back pain Chronicity: acute Sciatica laterality: sciatica of left side Sciatica presence: with sciatica Qualified Code(s): M54.42 - Lumbago with sciatica, left side Code(s): M54.9 - Dorsalgia, unspecified Status: Acute Plan 05/01/22 ?admit to regular medical floor ?bed rest ?Geoffrey hose ?whole ortho consult status post suturing ?local care CIWA as needed ?rate control ?holding anticoagulation Tylenol as needed follow up rounding note pt doing ok , we discussed signs and symptoms of EtOH withdrawal. pt is a daily drinker and admits that she has fequently thought about cutting back or stopping but has not done so. she denies any h/o EtOH withdrawal percocet and IV morphine added to MAR for tx of pain associated w femur fx 05/02/22 to OR today at 3pm for closed reduction w IM nailing L femur fx soft BP on narcotics and BZD , LR 500cc ordered perop post op orders per ortho including VTEP cont current care monitor closely for EtOH withdrawal (highly probable event) labs stable for OR today Subjective Date/time seen: 05/02/22 09:44 pt waiting for surgery today tentative time is 3pm pt has no new complaints and pain is fairly well controlled no symptoms of EtOH withdrawal would like to be discharged home w [facility] and will bring home walker to work w PT safely w her assistive device Exam Narrative: GEN: NAD, AAOx3, cooperative HEENT: NCAT, MMM, EOMI Neck: no JVD Heart: S1S2 RRR Lungs: CTA B/l Abd: soft, NT, ND, bowel sounds normoactive neuro no tremor AAOx3 CN intact Objective Data Vital Signs Vital Signs: Vital Signs - 24 hr 05/01/22 14:00 05/01/22 22:00 05/02/22 06:00 Temperature 97.6 F 97.7 F 98.2 F Pulse Rate 87 84 88 Respiratory Rate 20 18 18 Blood Pressure 122/75 126/92 H 96/74 L Pulse Oximetry 98 99 100 Intake/Output Intake/Output: Intake & Output 04/30/22 04/30/22 05/01/22 05/02/22 00:59 23:59 23:59 23:59 Intake Total 600 550 Output Total 1300 2200 Balance -700 -1650 Meds/Results Medications: Active Medications Generic Name Dose Route Start Last Admin Trade Name Freq PRN Reason Stop Dose Admin Chlordiazepoxide HCl 50 mg 05/01/22 06:00 05/02/22 05:53 Chlordiazepoxide (*Crx) 25 Mg Capsule PO 50 mg Q6HR TERESITA Administration Cyanocobalamin 1,000 mcg 05/02/22 09:00 05/02/22 08:22 Cyanocobalamin 1,000 Mcg Tablet PO Not Given QAM TERESITA Folic Acid 1 mg 05/02/22 09:00 05/02/22 08:22 Folic Acid 1 Mg Tablet PO Not Given DAILY TERESITA Lorazepam 2 mg 05/01/22 05:47 Lorazepam Inj (*Crx) 2 Mg/Ml Vial IV PUSH Q4H PRN Withdrawal Morphine Sulfate 2 mg 05/01/22 08:44 05/02/22 05:53 Morphine Sulfate (*Crx) 2 Mg/Ml Inj IV PUSH 2 mg Q2H PRN Administration Pain Rated 7-10 Ondansetron HCl 4 mg 05/01/22 05:47 Ondansetron Inj 4 Mg/2 Ml Vial IV PUSH Q6H PRN Nausea And Vomiting Oxycodone/Acetaminophen 1 tab 05/01/22 19:30 05/02/22 01:09 Oxycodone/Acetaminophen (*Crx) 10-325 Mg Tablet PO 1 tab Q6H PRN Adminis
[2022-05-02] MEDS: LACTATED RINGERS 1,000 ML 100 ML IV CONT (09:58)
--- NOTE | 2022-05-02 11:03 | WPDHPUPDATE1 ---
History and Physical Update Update Date/Time: 05/02/22 11:03 History and Physical has been reviewed, including an updated exam of the patient. There are NO changes in the patient's condition. Risks, benefits, and alternatives have been discussed and questions answered. Patient agrees to proceed with procedure.
[2022-05-02 12:12] LABS: Glucose Point of Care 109 mg/dl (65-105)
[2022-05-02] MEDS: LACTATED RINGERS 1,000 ML 30 ML IV CONT ×2 (14:30→17:53)
--- NOTE | 2022-05-02 14:33 | PC.NURSE ---
1415 pt off floor for surgery.
--- NOTE | 2022-05-02 15:14 | WPDANESEPPF ---
Anes - Initial Pre Proc Eval Procedure: Operation Date: 05/02/22 15:00 Proposed Procedures p Revision Left Femoral Nail - Otilio Isabel MD Date/Time: 05/02/22 15:14 Surgeon: Dwayne Ledesma MD Pre Op Diagnosis: left femur fracture Patient Data Age: 66 Gender: F Height: 1.65 m Weight: 73 kg Last Vital Signs Temp 36.7 C 05/02/22 14:45 Pulse 84 05/02/22 14:45 Resp 16 05/02/22 14:45 BP 113/56 L 05/02/22 14:45 Pulse Ox 98 05/02/22 14:45 O2 Del Method Room Air 05/02/22 14:45 Allergies Allergy/AdvReac Type Severity Reaction Status Date / Time No Known Allergies Allergy Verified 05/01/22 05:59 Home Medications Medication Instructions Recorded Confirmed Type apixaban 5 mg tablet (Eliquis) 5 mg PO BID 03/11/20 05/01/22 History cholecalciferol (vitamin D3) 50 50 mcg PO DAILY 04/02/20 05/01/22 History mcg (2,000 unit) capsule ferrous sulfate 324 mg (65 mg 325 mg PO DAILY 04/27/20 05/01/22 History iron) tablet,delayed release magnesium 250 mg tablet 500 mg PO DAILY 01/20/21 05/01/22 History ohokydmw-oso-luays ac 400 1 tablet PO DAILY 01/20/21 05/01/22 History mcg-calcium carb 500 mg-vit K1 20 mcg tablet (Women's 50 Plus Multivitamin) simvastatin 10 mg tablet 10 mg PO DAILY #90 tabs 07/19/21 05/01/22 Rx ascorbic acid (vitamin C) 500 mg 500 mg PO DAILY 08/29/21 05/01/22 History tablet acetaminophen 325 mg tablet (Mapap 650 mg PO Q4H PRN Pain #60 tabs 09/22/21 05/01/22 Rx (acetaminophen)) calcium carbonate 500 mg calcium 500 mg PO DAILY 12/16/21 05/01/22 History (1,250 mg) tablet zinc 50 mg tablet 50 mg PO DAILY 12/16/21 05/01/22 History diclofenac sodium 1 % topical gel 2 g topical QID PRN arthritis pain 03/23/22 05/01/22 Rx (Arthritis Pain (diclofenac)) #100 grams Laboratory Tests 05/01/22 05/02/22 05/02/22 18:24 06:17 06:17 WBC 7.1 K/mm3 K/mm3 (4.5-10.0) RBC 3.39 M/mm3 L M/mm3 (4.2-5.4) Hgb 10.8 g/dL L g/dL (12.0-15.0) Hct 35.2 % L % (37.0-47.0) MCV 103.8 fl H fl (80-100) MCH 31.9 pg pg (26-34) MCHC 30.7 g/dl L g/dl (32-36) RDW 13.9 % % (11.5-14.5) Plt Count 181 k/mm3 k/mm3 (150-375) MPV 9.1 fl fl (7.4-10.4) Immature Gran % (Auto) 0.3 % % (0-0.5) Neut % (Auto) 69.6 % % (45.5-73.1) Lymph % (Auto) 13.3 % L % (18.3-44.2) [place] % (Auto) 14.8 % H % (2.6-8.5) Eos % (Auto) 1.3 % % (0-4.4) Baso % (Auto) 0.7 % % (0.2-1.2) Lymph # (Auto) 0.94 K/mm3 K/mm3 (0.9-3.2) [place] # (Auto) 1.1 K/mm3 H K/mm3 (0.1-0.6) Eos # (Auto) 0.1 K/mm3 K/mm3 (0-0.3) Baso # (Auto) 0.1 K/mm3 K/mm3 (0.0-0.1) Abs Immat Gran (auto) 0.02 K/mm3 K/mm3 (0.00-0.031) Absolute Neuts (auto) 4.9 K/mm3 K/mm3 (1.3-6.7) Absolute Nucleated RBC 0.0 K/mm3 K/mm3 (0.0-0.012) Nucleated RBC % 0.0 % % (0.0-0.2) Sodium 136 mmol/L L mmol/L (137-145) Potassium 3.8 mmol/L mmol/L (3.4-5.0) Chloride 103 mmol/L mmol/L (98-107) Carbon Dioxide 26 mmol/L mmol/L (22-30) Anion Gap 7 mmol/L L mmol/L (8-16) BUN 11 mg/dL mg/dL (7-17) Creatinine 0.70 mg/dL mg/dL (0.7-1.0) Estim Creat Clear Calc 60 ml/min ml/min Estimated GFR > 60 (59 - ) Glucose 104 mg/dL mg/dL (65-110) POC Capillary Glucose 123 mg/dl H mg/dl (65-105) Calcium 8.5 mg/dL mg/dL (8.4-10.2) Magnesium 2.2 mg/dL mg/dL (1.6-2.3) 05/02/22 12:09 WBC RBC Hgb Hct MCV MCH MCHC RDW Plt Count MPV Immature Gran % (Auto) Neut % (Auto) Lymph % (Auto) [place] % (Auto) Eos % (Auto) Baso % (Auto) Lymph # (Auto) Clarke # (Au
[2022-05-02] MEDS: ceFAZolin 2 GM/D5W 50 ML 2 GM/50 ML BAG IVPB (15:44)
--- NOTE | 2022-05-02 17:09 | SUR.OPER ---
left distal leg arthrex nail system
--- NOTE | 2022-05-02 17:41 | W.PM.PROC2 ---
Procedure Note - Detailed Date of Procedure 05/02/22 Pre-op Diagnosis left femur fracture Post-op Diagnosis Same Procedure Performed CLOSED REDUCTION AND REVISION OF FEMORAL NAIL LEFT FEMUR Surgeon Otilio Isabel MD Anesthesia General Description of Procedure THE PATIENT WAS TAKEN TO THE OPERATING ROOM AND PLACED UNDER GENERAL ANESTHESIA. THE PATIENT WAS PLACED ON A FRACTURE TABLE. THE LEFT LOWER EXTREMITY WAS PLACED IN TRACTION UNTIL THE FRACTURE FRAGMENTS WERE OUT TO LENGTH ON FLUOROSCOPY. FLUOROSCOPY SHOWED FRACTURE FRAGMENTS WERE ALIGNED. THE LEFT LOWER EXTREMITY WAS PREPPED AND DRAPED STERILE. THE C ARM WAS USED TO FIND THE POSITION OF THE DISTAL LOCKING SCREW HOLES. 2 SMALL INCISIONS WERE MADE OVER THE CORRESPONDING DRILL HOLE SLOTS OF THE FEMORAL NAIL. USING C ARM GUIDANCE THE SCREW HOLES WERE DRILLED. A #50 and a #40 LENGTH SCREW WERE PLACED THROUGH THE DISTAL LOCKING SCREW HOLES OF THE FEMORAL NAIL. C ARM DEMONSTRATED GOOD POSITION OF THE HARDWARE AND FRACTURE FRAGMENTS. THE WOUNDS WERE WASHED. THE BLEEDERS WERE CAUTERIZED. THE WOUNDS WERE APPROXIMATED WITH 3-0 MONOCRYL SUTURE AND DERMABOND. TRACTION WAS RELEASED. STERILE DRESSING WAS APPLIED. SHE WAS EXTUBATED AND TRANSFERRED TO THE RECOVERY ROOM IN STABLE CONDITION Estimated Blood Loss 50
--- NOTE | 2022-05-02 17:45 | SUR.OPER ---
total u/a output 100ml clear yellow end of surgery
--- NOTE | 2022-05-02 18:53 | PC.NURSE ---
pt back in room at this time via bed.
[2022-05-02] MEDS: SODIUM CHLORIDE 0.9% IV 1,000 ML 125 ML IV CONT (19:01)
[2022-05-02] MEDS: FAMOTIDINE 20 MG TABLET PO (20:14)
[2022-05-03 00:28] VITALS: BP 112/71; PULSE 92; RESP 18; TEMP 36.6; O2SAT 97
[2022-05-03] MEDS: HYDROcodone/acetaminophen (*CRX) 5-325 MG TABLET 1 TAB PO ×2 (01:00→16:18)
[2022-05-03] MEDS: ceFAZolin 2 GM/D5W 50 ML 2 GM/50 ML BAG IVPB ×3 (01:00→16:07)
[2022-05-03 04:00] VITALS: BP 121/74; PULSE 98; RESP 22; TEMP 36.5; O2SAT 98
[2022-05-03] MEDS: oxyCODONE/ACETAMINOPHEN (*CRX) 10-325 MG TABLET 1 TAB PO ×2 (05:57→21:43)
[2022-05-03 06:19] LABS: Basophils Percent Auto 0.1 % (0.2-1.2); Hematocrit 35.3 % (37.0-47.0); Immature Granulocyte Absolute 0.03 K/mm3 (0.00-0.031); Immature Granulocyte Percent A 0.3 % (0-0.5); Lymphocytes Absolute Auto 0.48 K/mm3 (0.9-3.2); Lymphocytes Percent Auto 5.3 % (18.3-44.2); Mean Corpuscular HGB Conc 31.2 g/dl (32-36); Mean Corpuscular Hemoglobin 31.2 pg (26-34); Mean Platelet Volume 9.5 fl (7.4-10.4); Monocytes Absolute Auto 0.7 K/mm3 (0.1-0.6); Neutrophils Absolute Auto 7.8 K/mm3 (1.3-6.7); Neutrophils Percent Auto 86.3 % (45.5-73.1); Platelet Count Result 179 k/mm3 (150-375); Red Blood Count 3.53 M/mm3 (4.2-5.4); Red Cell Distribution Width 13.2 % (11.5-14.5)
[2022-05-03 06:34] LABS: Anion Gap 10 mmol/L (8-16); Blood Urea Nitrogen 9 mg/dL (7-17); Calcium 8.5 mg/dL (8.4-10.2); Carbon Dioxide 21 mmol/L (22-30); Chloride 106 mmol/L (98-107); Estimated CRCL calculation 70 ml/min; Estimated Glomerular Filt Rate > 60; Glucose 124 mg/dL (65-110); Magnesium 2.3 mg/dL (1.6-2.3); Potassium 4.2 mmol/L (3.4-5.0); Sodium 137 mmol/L (137-145)
[2022-05-03 08:48] VITALS: O2SAT 98
[2022-05-03] MEDS: CHOLECALCIFEROL 1,000 UNITS TABLET 2000 UNITS PO (08:54)
[2022-05-03] MEDS: SIMVASTATIN 10 MG TABLET PO (08:54)
[2022-05-03] MEDS: APIXABAN 5 MG TABLET PO ×2 (08:54→21:45)
[2022-05-03] MEDS: MAGNESIUM 27 MG TABLET (500 MG MAG GLUCONATE) PO (08:54)
[2022-05-03] MEDS: FAMOTIDINE 20 MG TABLET PO ×2 (08:54→21:45)
[2022-05-03] MEDS: ASCORBIC ACID 500 MG TABLET PO (08:54)
[2022-05-03] MEDS: ZINC SULFATE 220 MG CAPSULE PO (08:54)
[2022-05-03] MEDS: THERAPEUTIC MULTIVITAMINS/MINERALS TAB (*BKC) 1 TABLET PO (08:54)
[2022-05-03] MEDS: CALCIUM CARBONATE (OSCAL) 500 MG TABLET PO (08:54)
[2022-05-03] MEDS: FERROUS SULFATE 324 MG TABLET PO (08:55)
[2022-05-03] MEDS: SENNA/DOCUSATE SODIUM TABLET 2 TAB PO ×2 (08:55→17:07)
[2022-05-03] MEDS: FOLIC ACID 1 MG TABLET PO (08:55)
[2022-05-03] MEDS: CYANOCOBALAMIN 1,000 MCG TABLET 1000 MCG PO (08:55)
[2022-05-03] MEDS: polyethylene glycoL 3350 17 GM POWD.PACK PO (08:55)
[2022-05-03] MEDS: THIAMINE HCL 200 MG/2 ML VIAL 100 MG IV PUSH (08:56)
[2022-05-03 11:03] VITALS: BP 112/71; PULSE 95; RESP 20; TEMP 35.9; O2SAT 97
--- NOTE | 2022-05-03 12:55 | P.PNAN_ITS ---
Anes - Prog Note Post-Op Date/Time: 05/03/22 12:55 Cardiovascular status: normal Respiratory status: normal Airway patency: baseline Mental status: baseline Post-Op hydration status: normal Vital Signs: Last Vital Signs Temp 35.9 C L 05/03/22 11:03 Pulse 95 05/03/22 11:03 Resp 20 05/03/22 11:03 BP 112/71 05/03/22 11:03 Pulse Ox 97 05/03/22 11:03 O2 Del Method Room Air 05/03/22 08:48 O2 Flow Rate 8 05/02/22 18:05 Pain Score (VAS): 2 I/O: Intake & Output 05/02/22 05/03/22 05/03/22 23:59 07:59 15:59 Intake Total 150 1050 650 Output Total 30 1100 Balance 120 -50 650 Laboratory Tests 05/03/22 06:05 05/03/22 06:05 05/03/22 05/03/22 06:05 06:05 WBC 9.0 RBC 3.53 L Hgb 11.0 L Hct 35.3 L MCV 100.0 MCH 31.2 MCHC 31.2 L RDW 13.2 Plt Count 179 MPV 9.5 Immature Gran % (Auto) 0.3 Neut % (Auto) 86.3 H Lymph % (Auto) 5.3 L [place] % (Auto) 8.0 Eos % (Auto) 0.0 Baso % (Auto) 0.1 L Lymph # (Auto) 0.48 L [place] # (Auto) 0.7 H Eos # (Auto) 0.0 Baso # (Auto) 0.0 Abs Immat Gran (auto) 0.03 Absolute Neuts (auto) 7.8 H Absolute Nucleated RBC 0.0 Nucleated RBC % 0.0 Sodium 137 Potassium 4.2 Chloride 106 Carbon Dioxide 21 L Anion Gap 10 BUN 9 Creatinine 0.60 L Estim Creat Clear Calc 70 Estimated GFR > 60 Glucose 124 H Calcium 8.5 Magnesium 2.3 Post-procedural complaints: none Patient Feedback: Patient satisfied with anesthetic care. patient sitting up in a chair, states she is doing well.
[2022-05-03 15:44] VITALS: BP 119/67; PULSE 102; RESP 20; TEMP 36.4; O2SAT 96
--- NOTE | 2022-05-03 16:16 | PM.IMPN ---
Progress Note: A&P Assessment and Plan (1) Closed left femoral fracture: Qualifiers: Encounter type: initial encounter Femur location: shaft Fracture alignment: displaced Fracture morphology: spiral Qualified Code(s): S72.342A - Displaced spiral fracture of shaft of left femur, initial encounter for closed fracture Code(s): S72.92XA - Unspecified fracture of left femur, initial encounter for closed fracture Status: Acute (2) Laceration: Status: Acute (3) Alcohol abuse: Code(s): F10.10 - Alcohol abuse, uncomplicated Status: Acute (4) Atrial fibrillation: Qualifiers: Atrial fibrillation type: paroxysmal Qualified Code(s): I48.0 - Paroxysmal atrial fibrillation Code(s): I48.91 - Unspecified atrial fibrillation Status: Acute (5) Back Pain: Qualifiers: Back pain laterality: left Back pain location: low back pain Chronicity: acute Sciatica laterality: sciatica of left side Sciatica presence: with sciatica Qualified Code(s): M54.42 - Lumbago with sciatica, left side Code(s): M54.9 - Dorsalgia, unspecified Status: Acute Plan 05/01/22 ?admit to regular medical floor ?bed rest ?Geoffrey hose ?whole ortho consult status post suturing ?local care CIWA as needed ?rate control ?holding anticoagulation Tylenol as needed follow up rounding note pt doing ok , we discussed signs and symptoms of EtOH withdrawal. pt is a daily drinker and admits that she has fequently thought about cutting back or stopping but has not done so. she denies any h/o EtOH withdrawal percocet and IV morphine added to MAR for tx of pain associated w femur fx 05/02/22 to OR today at 3pm for closed reduction w IM nailing L femur fx soft BP on narcotics and BZD , LR 500cc ordered perop post op orders per ortho including VTEP cont current care monitor closely for EtOH withdrawal (highly probable event) labs stable for OR today 05/03/22 POD#1. Patient tolerating therapy quite well. Already been up walking with therapy. No evidence of alcohol withdrawal symptoms. Continue see walk. Thiamine and folate have been ordered. IV fluids have been stopped. Remove Sousa catheter when okay with orthopedics. Labs are stable. Continue to monitor. Continue routine postoperative care. Subjective Date/time seen: 05/03/22 16:16 Interval history: 66yo female with AFib, HTN and alcohol abuse here for hip pain after a fall and found to have left femoral fracture. Assuming care. Chart reviewed. Pain is tolerable lying still but worse with activity. She was able to transfer to the commode and actually walk 40 ft with therapy today. No chest pain or shortness of breath. No tremors or symptoms of alcohol withdrawal. Exam Narrative: AF 97.5 119/67 102 20 96% ra Gen - NARD Chest - CTA bilaterally, nml RR CV - RRR S1/S2 Abd - Soft, NT/ND, Positive BS - Sousa secured draining clear yellow urine. Ext - No pedal edema. left hip dressing clean, dry and intact. Neuro - Alert and oriented. Nonfocal exam. Psych - Nml mood and affect Skin - Warm and dry Objective Data Vital Signs Vital Signs: Vital Signs - 24 hr 05/02/22 17:53 05/02/22 18:05 05/02/22 18:13 Temperature 98.6 F Pulse Rate 86 81 Respiratory Rate 22 H 22 H Blood Pressure 124/82 130/80 Pulse Oximetry 98 100 Oxygen Delivery Simple Face Mask Simple Face Mask Room Air Oxygen Flow Rate 8 8 05/02/22 18:20 05/02/22 18:35 05/02/22 18:42 Temperature Pulse Rate 83 82 82 Respiratory Rate 16 22 H 22 H Blood Pressure 126/74 129/75 128/80 Pulse Oximetry 95 93 92 Oxygen Delivery Room Air Room Air Room Air Oxygen Flow Rate 05/02/22 18:55 05/02/22 19:10 05/02/22 19:40 Temperature 97.6 F 97.4 F L 97.1 F L Pulse Rate 82 82 83 Respiratory Rate 18 18 18 Blood Pressure 134/77 121/74 139/79 Pulse Oximetry 97 99 100 Oxygen Delivery Oxygen Flow Rate 05/02/22 20:40
--- NOTE | 2022-05-03 16:48 | PM.PNORT ---
Progress Note: A&P Assessment and Plan (1) Closed left femoral fracture: Qualifiers: Encounter type: initial encounter Femur location: shaft Fracture alignment: displaced Fracture morphology: spiral Qualified Code(s): S72.342A - Displaced spiral fracture of shaft of left femur, initial encounter for closed fracture Code(s): S72.92XA - Unspecified fracture of left femur, initial encounter for closed fracture Status: Acute Assessment and Plan: POD 1 DOING WELL. SHE WILL CONTINUE PT UNTIL SHE IS MORE MOBILE. SHE WILL CONTINUE TOE TOUCH WEIGHT FOR APPROXIMATELY 12 WEEKS. SHE MAY BE DISCHARGED HOME VS SNF DEPENDING ON HER PROGRESS WITH PT. SHE WILL F/U WITH ORTHO IN 2 MOS. Subjective Subjective Date/Time Seen: 05/03/22 16:48 POD 1 DOING WELL. UP WITH PT. WALKING TOE TOUCH WEIGHT BEARING. NO CALF PAIN Exam Extrem: Other: VSS AFEBRILE DRESSING DRY NV INTACT NEG HOMANS SIGN CALF SOFT NON TENDER Objective Data Vital Signs Vital Signs: Vital Signs - 24 hr 05/02/22 17:53 05/02/22 18:05 05/02/22 18:13 Temperature 37.0 C Pulse Rate 86 81 Respiratory Rate 22 H 22 H Blood Pressure 124/82 130/80 Pulse Oximetry 98 100 Oxygen Delivery Simple Face Mask Simple Face Mask Room Air Oxygen Flow Rate 8 8 05/02/22 18:20 05/02/22 18:35 05/02/22 18:42 Temperature Pulse Rate 83 82 82 Respiratory Rate 16 22 H 22 H Blood Pressure 126/74 129/75 128/80 Pulse Oximetry 95 93 92 Oxygen Delivery Room Air Room Air Room Air Oxygen Flow Rate 05/02/22 18:55 05/02/22 19:10 05/02/22 19:40 Temperature 36.4 C 36.3 C L 36.2 C L Pulse Rate 82 82 83 Respiratory Rate 18 18 18 Blood Pressure 134/77 121/74 139/79 Pulse Oximetry 97 99 100 Oxygen Delivery Oxygen Flow Rate 05/02/22 20:40 05/03/22 00:28 05/03/22 04:00 Temperature 36.3 C L 36.6 C 36.5 C Pulse Rate 84 92 98 Respiratory Rate 18 18 22 H Blood Pressure 113/70 112/71 121/74 Pulse Oximetry 98 97 98 Oxygen Delivery Oxygen Flow Rate 05/03/22 07:45 05/03/22 08:48 05/03/22 08:30 Temperature Pulse Rate Respiratory Rate Blood Pressure Pulse Oximetry 98 Oxygen Delivery Room Air Room Air Room Air Oxygen Flow Rate 05/03/22 08:55 05/03/22 11:03 05/03/22 15:44 Temperature 35.9 C L 36.4 C L Pulse Rate 95 102 H Respiratory Rate 20 20 Blood Pressure 112/71 119/67 Pulse Oximetry 97 96 Oxygen Delivery Room Air Oxygen Flow Rate Intake/Output Intake/Output: Intake & Output 04/30/22 05/01/22 05/02/22 05/03/22 23:59 23:59 23:59 23:59 Intake Total 354 433 2485 Output Total 1300 2510 1100 Balance -700 -1810 600 Meds/Results Medications: Active Medications Generic Name Dose Route Start Last Admin Trade Name Freq PRN Reason Stop Dose Admin Acetaminophen 650 mg 05/02/22 18:43 Acetaminophen 325 Mg Tablet PO Q4H PRN PAIN RATED 1-3 Hydrocodone Bitart/Acetaminophen 1 tab 05/02/22 18:43 05/03/22 16:18 Hydrocodone/Acetaminophen (*Crx) 5-325 Mg Tablet PO 1 tab Q3H PRN Administration Pain Rated 4-6 Apixaban 5 mg 05/03/22 09:00 05/03/22 08:54 Apixaban 5 Mg Tablet PO 5 mg Q12HR TERESITA Administration Ascorbic Acid 500 mg 05/03/22 09:00 05/03/22 08:54 Ascorbic Acid 500 Mg Tablet PO 500 mg DAILY TERESITA Administration Calcium Carbonate 500 mg 05/03/22 09:00 05/03/22 08:54 Calcium Carbonate (Oscal) 500 Mg Tablet PO 500 mg DAILY TERESITA Administration Cyanocobalamin 1,000 mcg 05/02/22 09:00 05/03/22 08:55 Cyanocobalamin 1,000 Mcg Tablet PO 1,000 mcg QAM TERESITA Administration Diazepam 5 mg 05/02/22 18:43 Diazepam (*Crx) 5 Mg Tablet PO Q8H PRN Muscle Spasm Diclofenac Sodium 0 applic 05/02/22 18:43 Diclofenac Sodium 1% 100 Gm Gel (*Bkc) TOPICAL QID PRN arthritis pain Famotidine 20 mg 05/02/22 21:00 05/03/22 08:54 Famotidine 20 Mg Tablet PO 20 mg Q12HR TERESITA Administration Ferrou
[2022-05-03 22:00] VITALS: BP 110/62; PULSE 85; RESP 18; TEMP 36.9; O2SAT 98
[2022-05-04] MEDS: HYDROcodone/acetaminophen (*CRX) 5-325 MG TABLET 1 TAB PO ×2 (05:54→18:29)
[2022-05-04 06:00] VITALS: BP 118/52; PULSE 73; RESP 16; TEMP 35.5; O2SAT 97
[2022-05-04 08:00] VITALS: PULSE 73; RESP 16; O2SAT 97
[2022-05-04] MEDS: THERAPEUTIC MULTIVITAMINS/MINERALS TAB (*BKC) 1 TABLET PO (09:29)
[2022-05-04] MEDS: CHOLECALCIFEROL 1,000 UNITS TABLET 2000 UNITS PO (09:29)
[2022-05-04] MEDS: ASCORBIC ACID 500 MG TABLET PO (09:29)
[2022-05-04] MEDS: FAMOTIDINE 20 MG TABLET PO ×2 (09:29→21:01)
--- NOTE | 2022-05-04 09:29 | PM.PNORT ---
Progress Note: A&P Assessment and Plan (1) Closed left femoral fracture: Qualifiers: Encounter type: initial encounter Femur location: shaft Fracture alignment: displaced Fracture morphology: spiral Qualified Code(s): S72.342A - Displaced spiral fracture of shaft of left femur, initial encounter for closed fracture Code(s): S72.92XA - Unspecified fracture of left femur, initial encounter for closed fracture Status: Acute Assessment and Plan: POD #2: CLOSED REDUCTION AND REVISION OF FEMORAL NAIL LEFT FEMUR PT/OT. TTWB. Walker. Fall precautions. Pain control. Ice. Elevate. Monitor dressing. Okay to transition to Mepilex Silver. Dispo: Home with Home Health when medically cleared. Subjective Subjective Date/Time Seen: 05/04/22 09:29 Post Op day: 2 Interval history: POD #2: CLOSED REDUCTION AND REVISION OF FEMORAL NAIL LEFT FEMUR Patient doing very well. Pain well controlled. No new concerns. Review of Systems Constitutional: Constitutional: Reports no additional constitutional complaints, Denies chills, Denies fatigue, Denies fever(s), Denies headache(s) and Denies weakness Eyes: Eyes: Denies change in vision ENT: Reports Normal hearing present and Denies headache(s) Cardiovascular: Cardiovascular: Denies chest pain and Denies dyspnea Respiratory: Respiratory: Denies cough, Denies dyspnea and Denies wheezing Gastrointestinal: Gastrointestinal: Denies constipation, Denies diarrhea, Denies nausea and Denies vomiting Genitourinary: Genitourinary: Denies hematuria, Denies dysuria and Denies urinary urgency Musculoskeletal: Musculoskeletal: Reports as per HPI, Denies numbness and Denies tingling Integumentary/Breasts: Skin/Breast: Reports as per HPI Neurologic: Reports as per HPI, Reports Normal hearing present, Denies headache(s), Denies numbness, Denies tingling and Denies weakness Psychiatric: Psychiatric: Reports no additional psychiatric complaints Endocrine: Endocrine: Reports no additional endocrine complaints and Denies fatigue Hematologic/Lymphatic: Hematologic/Lymphatic: Reports no additional hematologic/lymphatic complaints Allergic/Immunologic: Allergic/Immunologic: Reports no additional allergic/immunologic complaints and Denies wheezing Exam Const: General: comfortable and no acute distress Resp: Effort & Inspection: normal respiratory effort Cardio: Rate: regular rate Rhythm: regular rhythm GI: GI Palp: Yes Soft to palpation, No Tenderness to palpation present (GI) and No Guarding due to palpation present (GI) Skin: General skin exam: normal color Other: Incision lateral knee c/d/i Neuro: Motor exam (neuro): Normal motor muscle tone present throughout Sensory Exam: normal sensation Extrem: Left lower extremity: hip/thigh Details: normal to inspection and tenderness Location: of the hip Location: laterally, knee Details: tenderness Location: of the lateral joint line, lower leg (Negative Pavithra's sign ) Details: normal to inspection; no tenderness, ankle Details: normal to inspection, no edema and normal ROM; no tenderness and no swelling and foot Details: normal capillary refill, normal to inspection, toes with normal ROM, vascular exam Details: dorsalis pedis pulse present and motor-sensory exam two point discrimination normal and light-touch normal Psych: Affect: normal affect Objective Data Vital Signs Vital Signs: Vital Signs - 24 hr 05/03/22 11:03 05/03/22 15:44 05/03/22 22:00 Temperature 35.9 C L 36.4 C L 36.9 C Pulse Rate 95 102 H 85 Respiratory Rate 20 20 18 Blood Pressure 112/71 119/67 110/62 Pulse Oximetry 97 96 98 05/04/22 06:00 Temperature 35.5 C L Pulse Rate 73 Respiratory Rate 16 Blood Pressure 118/52 L Pulse Oximetry 97 Intake/Output Intake/Output: Intake & Output 05/01/22 05/02/22 05/03/22 05/04/22 23:59 23:59 23:59 23:59 Intake Total 456 591 0221 Output Total 1300 2510 1100 1600 Balance -700 -4920 1
[2022-05-04] MEDS: CALCIUM CARBONATE (OSCAL) 500 MG TABLET PO (09:30)
[2022-05-04] MEDS: SENNA/DOCUSATE SODIUM TABLET 2 TAB PO ×2 (09:30→17:15)
[2022-05-04] MEDS: APIXABAN 5 MG TABLET PO ×2 (09:30→21:00)
[2022-05-04] MEDS: MAGNESIUM 27 MG TABLET (500 MG MAG GLUCONATE) PO (09:30)
[2022-05-04] MEDS: FERROUS SULFATE 324 MG TABLET PO (09:30)
[2022-05-04] MEDS: SIMVASTATIN 10 MG TABLET PO (09:31)
[2022-05-04] MEDS: CYANOCOBALAMIN 1,000 MCG TABLET 1000 MCG PO (09:31)
[2022-05-04] MEDS: FOLIC ACID 1 MG TABLET PO (09:31)
[2022-05-04] MEDS: THIAMINE HCL 200 MG/2 ML VIAL 100 MG IV PUSH (09:31)
[2022-05-04] MEDS: ZINC SULFATE 220 MG CAPSULE PO (09:31)
[2022-05-04] MEDS: polyethylene glycoL 3350 17 GM POWD.PACK PO (09:32)
[2022-05-04 14:00] VITALS: BP 104/64; PULSE 84; RESP 24; TEMP 36.2; O2SAT 98
--- NOTE | 2022-05-04 15:54 | PM.IMPN ---
Progress Note: A&P Assessment and Plan (1) Closed left femoral fracture: Qualifiers: Encounter type: initial encounter Femur location: shaft Fracture alignment: displaced Fracture morphology: spiral Qualified Code(s): S72.342A - Displaced spiral fracture of shaft of left femur, initial encounter for closed fracture Code(s): S72.92XA - Unspecified fracture of left femur, initial encounter for closed fracture Status: Acute (2) Laceration: Status: Acute (3) Alcohol abuse: Code(s): F10.10 - Alcohol abuse, uncomplicated Status: Acute (4) Atrial fibrillation: Qualifiers: Atrial fibrillation type: paroxysmal Qualified Code(s): I48.0 - Paroxysmal atrial fibrillation Code(s): I48.91 - Unspecified atrial fibrillation Status: Acute (5) Back Pain: Qualifiers: Back pain laterality: left Back pain location: low back pain Chronicity: acute Sciatica laterality: sciatica of left side Sciatica presence: with sciatica Qualified Code(s): M54.42 - Lumbago with sciatica, left side Code(s): M54.9 - Dorsalgia, unspecified Status: Acute Plan 05/01/22 ?admit to regular medical floor ?bed rest ?Geoffrey hose ?whole ortho consult status post suturing ?local care CIWA as needed ?rate control ?holding anticoagulation Tylenol as needed follow up rounding note pt doing ok , we discussed signs and symptoms of EtOH withdrawal. pt is a daily drinker and admits that she has fequently thought about cutting back or stopping but has not done so. she denies any h/o EtOH withdrawal percocet and IV morphine added to MAR for tx of pain associated w femur fx 05/02/22 to OR today at 3pm for closed reduction w IM nailing L femur fx soft BP on narcotics and BZD , LR 500cc ordered perop post op orders per ortho including VTEP cont current care monitor closely for EtOH withdrawal (highly probable event) labs stable for OR today 05/03/22 POD#1.? Patient tolerating therapy quite well.? Already been up walking with therapy.? No evidence of alcohol withdrawal symptoms.? Continue see walk.? Thiamine and folate have been ordered.? IV fluids have been stopped.? Remove Sousa catheter when okay with orthopedics.? Labs are stable.? Continue to monitor.? Continue routine postoperative care. 05/04/22 POD#2. Patient is recovering well. She is up ambulating in the halls. Remove Sousa. Okay to discharge when okay with Ortho. Subjective Date/time seen: 05/04/22 15:54 Interval history: 66yo female with AFib, HTN and alcohol abuse here for hip pain after a fall and found to have left femoral fracture. Feels well. No CP or SOB. Walking in halls with therapy. Exam Narrative: AF ? 97.1 104/64 84 24 98% ra Gen - NARD HEENT - chin laceration clean and dry Chest - CTA bilaterally, nml RR CV - RRR S1/S2 Abd - Soft, NT/ND, Positive BS - Sousa secured draining clear yellow urine. Ext - No pedal edema. left thigh dressing clean, dry and intact. Psych - Nml mood and affect Skin - Warm and dry Objective Data Vital Signs Vital Signs: Vital Signs - 24 hr 05/03/22 22:00 05/04/22 06:00 05/04/22 08:00 Temperature 98.4 F 96 F L Pulse Rate 85 73 73 Respiratory Rate 18 16 16 Blood Pressure 110/62 118/52 L Pulse Oximetry 98 97 97 Oxygen Delivery Room Air 05/04/22 14:00 Temperature 97.1 F L Pulse Rate 84 Respiratory Rate 24 H Blood Pressure 104/64 Pulse Oximetry 98 Oxygen Delivery Intake/Output Intake/Output: Intake & Output 05/01/22 05/02/22 05/03/22 05/04/22 23:59 23:59 23:59 23:59 Intake Total 206 339 3394 600 Output Total 1300 2510 1100 1600 Balance -700 -1810 1010 -1000 Meds/Results Medications: Active Medications Generic Name Dose Route Start Last Admin Trade Name Freq PRN Reason Stop Dose Admin Acetaminophen 650 mg 05/02/22 18:43 Acetaminophen 325 Mg Tablet PO Q4H PRN PAIN RATED 1-3 Hydrocodone Bitart/Acetaminophe
[2022-05-04 22:00] VITALS: BP 110/62; PULSE 83; RESP 18; TEMP 37.1; O2SAT 100
[2022-05-05] MEDS: HYDROcodone/acetaminophen (*CRX) 5-325 MG TABLET 1 TAB PO ×2 (00:36→06:32)
[2022-05-05 06:00] VITALS: BP 125/89; PULSE 90; RESP 16; TEMP 36.2; O2SAT 100
[2022-05-05] MEDS: SENNA/DOCUSATE SODIUM TABLET 2 TAB PO (08:19)
[2022-05-05] MEDS: CHOLECALCIFEROL 1,000 UNITS TABLET 2000 UNITS PO (08:19)
[2022-05-05] MEDS: MAGNESIUM 27 MG TABLET (500 MG MAG GLUCONATE) PO (08:19)
[2022-05-05] MEDS: THERAPEUTIC MULTIVITAMINS/MINERALS TAB (*BKC) 1 TABLET PO (08:20)
[2022-05-05] MEDS: FOLIC ACID 1 MG TABLET PO (08:20)
[2022-05-05] MEDS: APIXABAN 5 MG TABLET PO (08:20)
[2022-05-05] MEDS: THIAMINE HCL 100 MG TABLET PO (08:20)
[2022-05-05] MEDS: ASCORBIC ACID 500 MG TABLET PO (08:20)
[2022-05-05] MEDS: CALCIUM CARBONATE (OSCAL) 500 MG TABLET PO (08:20)
[2022-05-05] MEDS: CYANOCOBALAMIN 1,000 MCG TABLET 1000 MCG PO (08:20)
[2022-05-05] MEDS: FERROUS SULFATE 324 MG TABLET PO (08:20)
[2022-05-05] MEDS: ZINC SULFATE 220 MG CAPSULE PO (08:20)
[2022-05-05] MEDS: SIMVASTATIN 10 MG TABLET PO (08:20)
[2022-05-05] MEDS: FAMOTIDINE 20 MG TABLET PO (08:20)
--- NOTE | 2022-05-05 08:34 | PCPTNOTE ---
Attempted to see patient for PT, however patient was eating her breakfast.
--- NOTE | 2022-05-05 10:05 | PM.PNORT ---
Progress Note: A&P Assessment and Plan (1) Closed left femoral fracture: Qualifiers: Encounter type: initial encounter Femur location: shaft Fracture alignment: displaced Fracture morphology: spiral Qualified Code(s): S72.342A - Displaced spiral fracture of shaft of left femur, initial encounter for closed fracture Code(s): S72.92XA - Unspecified fracture of left femur, initial encounter for closed fracture Status: Acute Assessment and Plan: POD #3: CLOSED REDUCTION AND REVISION OF FEMORAL NAIL LEFT FEMUR PT/OT. TTWB. Walker. Fall precautions. Pain control. Ice. Elevate. Monitor dressing. Okay to transition to Mepilex Silver. Dispo: Home with Home Health when medically cleared. Subjective Subjective Date/Time Seen: 05/05/22 10:05 Post Op day: 3 Interval history: POD #3: CLOSED REDUCTION AND REVISION OF FEMORAL NAIL LEFT FEMUR Patient doing very well. Pain well controlled. No new concerns. Review of Systems Constitutional: Constitutional: Reports no additional constitutional complaints, Denies chills, Denies fatigue, Denies fever(s), Denies headache(s) and Denies weakness Eyes: Eyes: Denies change in vision ENT: Reports Normal hearing present and Denies headache(s) Cardiovascular: Cardiovascular: Denies chest pain and Denies dyspnea Respiratory: Respiratory: Denies cough, Denies dyspnea and Denies wheezing Gastrointestinal: Gastrointestinal: Denies constipation, Denies diarrhea, Denies nausea and Denies vomiting Genitourinary: Genitourinary: Denies hematuria, Denies dysuria and Denies urinary urgency Musculoskeletal: Musculoskeletal: Reports as per HPI, Denies numbness and Denies tingling Integumentary/Breasts: Skin/Breast: Reports as per HPI Neurologic: Reports as per HPI, Reports Normal hearing present, Denies headache(s), Denies numbness, Denies tingling and Denies weakness Psychiatric: Psychiatric: Reports no additional psychiatric complaints Endocrine: Endocrine: Reports no additional endocrine complaints and Denies fatigue Hematologic/Lymphatic: Hematologic/Lymphatic: Reports no additional hematologic/lymphatic complaints Allergic/Immunologic: Allergic/Immunologic: Reports no additional allergic/immunologic complaints and Denies wheezing Exam Const: General: comfortable and no acute distress Resp: Effort & Inspection: normal respiratory effort Cardio: Rate: regular rate Rhythm: regular rhythm GI: GI Palp: Yes Soft to palpation, No Tenderness to palpation present (GI) and No Guarding due to palpation present (GI) Skin: General skin exam: normal color Other: Incision lateral knee c/d/i Neuro: Motor exam (neuro): Normal motor muscle tone present throughout Sensory Exam: normal sensation Extrem: Left lower extremity: hip/thigh Details: normal to inspection and tenderness Location: of the hip Location: laterally, knee Details: tenderness Location: of the lateral joint line, lower leg (Negative Pavithra's sign ) Details: normal to inspection; no tenderness, ankle Details: normal to inspection, no edema and normal ROM; no tenderness and no swelling and foot Details: normal capillary refill, normal to inspection, toes with normal ROM, vascular exam Details: dorsalis pedis pulse present and motor-sensory exam two point discrimination normal and light-touch normal Psych: Affect: normal affect Objective Data Vital Signs Vital Signs: Vital Signs - 24 hr 05/04/22 14:00 05/04/22 22:00 05/04/22 20:00 Temperature 36.2 C L 37.1 C Pulse Rate 84 83 Respiratory Rate 24 H 18 Blood Pressure 104/64 110/62 Pulse Oximetry 98 100 Oxygen Delivery Room Air 05/05/22 06:00 05/05/22 08:10 Temperature 36.2 C L Pulse Rate 90 Respiratory Rate 16 Blood Pressure 125/89 Pulse Oximetry 100 Oxygen Delivery Room Air Intake/Output Intake/Output: Intake & Output 05/02/22 05/03/22 05/04/22 05/05/22 23:59 23:59 23:59 23:59 Intake Total 700 0100 1650
--- NOTE | 2022-05-05 10:19 | PM.DS ---
DS: Admitting Diagnosis Discharge Date 05/05/22 Admitting Diagnosis Left leg pain after a fall DS: Discharge Diagnosis Discharge Diagnosis (1) Closed left femoral fracture: Qualifiers: Encounter type: initial encounter Femur location: shaft Fracture alignment: displaced Fracture morphology: spiral Qualified Code(s): S72.342A - Displaced spiral fracture of shaft of left femur, initial encounter for closed fracture Code(s): S72.92XA - Unspecified fracture of left femur, initial encounter for closed fracture Status: Acute (2) Laceration: Status: Acute (3) Alcohol abuse: Code(s): F10.10 - Alcohol abuse, uncomplicated Status: Acute (4) Atrial fibrillation: Qualifiers: Atrial fibrillation type: paroxysmal Qualified Code(s): I48.0 - Paroxysmal atrial fibrillation Code(s): I48.91 - Unspecified atrial fibrillation Status: Acute (5) Back Pain: Qualifiers: Back pain location: low back pain Chronicity: acute Back pain laterality: left Sciatica presence: with sciatica Sciatica laterality: sciatica of left side Qualified Code(s): M54.42 - Lumbago with sciatica, left side Code(s): M54.9 - Dorsalgia, unspecified Status: Acute DS: Summary Hospital Course Reason for hospitalization: 66yo female with AFib, HTN and alcohol abuse here for hip pain after a fall and found to have left femoral fracture. Please see H&P for details Hospital Course: Patient brought in to the ED for left leg pain after a fall. Brain CT showed no acute findings. She had a laceration under her chin that was sutured. X-ray showed healing intratrochanteric fracture of the left femoral neck and a partially imaged displaced fracture left femoral shaft. Femoral shaft x-ray shows acute spiral fracture involving the distal left femur and mild bowing. Left the x-ray again shows the spiral fracture as well as a unremarkable left knee post total arthroplasty. Patient was seen by Orthopedics. She underwent close reduction and revision of femoral nail left femur fracture. She tolerated the procedure well. She has been up ambulating with therapy. She was educated about the benefits of abstaining from alcohol use. She overall did well was able be discharged home on 05/05/2022. Status at Discharge Cognitive/behavioral status at discharge: Stable Time Spent with Patient Time attestation: Total time spent providing and/or coordinating discharge services: 34 minutes Time spent: Greater than 30 minutes Exam Narrative: AF ? 97.2 125/89 90 16 100% ra Gen - NARD HEENT - chin dressing clean and dry Chest - CTA bilaterally, nml RR CV - RRR S1/S2 Abd - Soft, NT/ND, Positive BS Ext - No pedal edema. left thigh dressing clean, dry and intact. Psych - Nml mood and affect Skin - Warm and dry Discharge Plan Discharge Attending physician on discharge: Zachery Moreno Consulting providers: Coni Bravo ; Otilio Isabel Discharging Clinician: Zachery Moreno Anticipated Discharge Date/Time: 05/05/22 10:27 Patient Disposition: Home Health Service Activity: may shower, no driving and follow weight bearing status Wound Care Instructions: follow printed instructions Discharge Instructions: Per Care Coordination, pt to discharge with [facility]([phone]) for PT/OT and penitentiary services. Agency will contact pt prior to first visit. Orthopedic Recommendations Dr. Otilio Isabel [phone] Toe-Touch Weight bearing LEFT lower extremity. HIGH FALL PRECAUTIONS. Walker. Dermabond in place, allow to fall off naturally. Pain control. Ice. Elevate. Follow up appt indicated below. Contact our office for questions or concerns. Avoid all products that contain alcohol. Take precautions to avoid falls. Rise slowly from a lying or sitting position. Pause before standing or walking. Follow-up with your primary care p
== END 2022-05-05 13:35 | disposition home health service (06) | DRG 482 ==
LOC: ANHED 05-01 01:47 → ANH3MEDSUR 05-01 04:34
PROVIDERS: Hospitalist; Orthopaedic Surgery; Physician Assistant; Admitting Provider Internal Medicine; Emergency Provider Emergency Medicine; PCP Internal Medicine; Visit Provider Internal Medicine
PROC: 0QS934Z Reposition Left Femoral Shaft with Internal Fixation Device, Percutaneous Approach (ICD-10-PCS; CPT 27245; principal; 2022-05-02 15:00)
DX: S72.342A Displaced spiral fracture of shaft of left femur, initial encounter for closed fracture (principal); S01.81XA Laceration without foreign body of other part of head, initial encounter; W01.198A Fall on same level from slipping, tripping and stumbling with subsequent striking against other object, initial encounter; F10.10 Alcohol abuse, uncomplicated; I48.0 Paroxysmal atrial fibrillation; M54.42 Lumbago with sciatica, left side; Z96.652 Presence of left artificial knee joint; Z20.822 Contact with and (suspected) exposure to COVID-19; Z23 Encounter for immunization; Z79.01 Long term (current) use of anticoagulants; Z79.899 Other long term (current) drug therapy; Z87.891 Personal history of nicotine dependence
CPT/HCPCS: 12011; 36415; 51702; 70450; 73502; 73552; 73560; 80048; 82948; 83735; 85025; 90471; 90686; 90715; 96365; 96375; 96376; 97110; 97116; 97161; 97165; 97530; 97535; 99199; 99285; A9270; G0008; G0378; J0131; J0690; J1100; J1170; J2250; J2270; J2370; J2704; J2710; J3010; J3411; J7030; J7120; U0003; U0005

== ENCOUNTER 2023-01-22 10:10 | Outpatient (CLI) | payer MEDICARE, BC, SELFPAY ==
--- NOTE | ~2023-01-22 | MM_ITS ---
EXAMINATION: MM screening konstantin BI w abhinav HISTORY: Screening mammogram TECHNIQUE: Craniocaudal and mediolateral oblique 3-D tomosynthesis images were obtained and synthetic 2-D images were generated. CAD analysis was submitted and interpreted. COMPARISON: 04/19/2021, 03/14/2020, 12/12/2018 bilateral screening mammogram examinations BREAST PARENCHYMAL COMPOSITION: There are scattered areas of fibroglandular density. FINDINGS: There is no evidence of suspicious mass, calcification, or architectural distortion to sugg est malignancy in either breast. There has been no suspicious interval change. IMPRESSION: 1. No mammographic evidence of malignancy. 2. Recommend routine screening mammography in one year. BI-RADS Category 1: Negative Reviewed, dictated and finalized at location A.
== END 2023-01-22 10:11 | disposition home or self-care (01) ==
LOC: ANHIMG 10:13
PROVIDERS: PCP Internal Medicine; Visit Provider Internal Medicine
DX: Z12.31 Encounter for screening mammogram for malignant neoplasm of breast (principal)
CPT/HCPCS: 77063; 77067

== ENCOUNTER 2023-02-21 11:42 | Outpatient (CLI) | payer MEDICARE, BC, SELFPAY ==
[2023-02-21 12:23] LABS: Basophils Absolute Auto 0.1 K/mm3 (0.0-0.1); Basophils Percent Auto 1.7 % (0.2-1.2); Eosinophils Absolute Auto 0.2 K/mm3 (0-0.3); Hematocrit 33.1 % (37.0-47.0); Immature Granulocyte Absolute 0.01 K/mm3 (0.00-0.031); Immature Granulocyte Percent A 0.2 % (0-0.5); Lymphocytes Absolute Auto 0.84 K/mm3 (0.9-3.2); Lymphocytes Percent Auto 20.7 % (18.3-44.2); Mean Corpuscular HGB Conc 30.2 g/dl (32-36); Mean Corpuscular Hemoglobin 29.2 pg (26-34); Mean Corpuscular Volume 96.8 fl (80-100); Mean Platelet Volume 8.4 fl (7.4-10.4); Monocytes Absolute Auto 0.6 K/mm3 (0.1-0.6); Monocytes Percent Auto 14.1 % (2.6-8.5); Neutrophils Absolute Auto 2.4 K/mm3 (1.3-6.7); Neutrophils Percent Auto 59.3 % (45.5-73.1); Platelet Count Result 282 k/mm3 (150-375); Red Blood Count 3.42 M/mm3 (4.2-5.4); White Blood Count 4.1 K/mm3 (4.5-10.0)
[2023-02-21 12:37] LABS: Alanine Aminotransferase 26 U/L (6-35); Albumin Level 4.1 g/dL (3.5-5.1); Alkaline Phosphatase 94 U/L (38-126); Anion Gap 11 mmol/L (8-16); Aspartate Amino Transferase 35 U/L (14-36); Bilirubin,Total 0.6 mg/dL (0.2-1.3); Blood Urea Nitrogen 14 mg/dL (7-17); Calcium 9.4 mg/dL (8.4-10.2); Carbon Dioxide 23 mmol/L (22-30); Chloride 105 mmol/L (98-107); Estimated Glomerular Filt Rate > 60; Glucose 87 mg/dL (65-110); Potassium 3.9 mmol/L (3.4-5.0); Sodium 139 mmol/L (137-145)
[2023-02-21 12:43] LABS: Iron 227 ug/dL (37-170)
[2023-02-21 12:57] LABS: Percent Iron Saturation 61 % (20-50)
[2023-02-21 13:48] LABS: Folic Acid > 20.0 ng/mL (2.76->20)
== END 2023-02-21 11:43 | disposition home or self-care (01) ==
PROVIDERS: PCP Internal Medicine; Visit Provider Clinical Nurse Specialist
DX: D64.9 Anemia, unspecified (principal)
CPT/HCPCS: 36415; 80053; 82607; 82728; 82746; 83540; 83550; 85025

== ENCOUNTER 2023-03-21 13:42 | Outpatient (CLI) | payer MEDICARE, BC, SELFPAY ==
[2023-03-21 19:45] LABS: Alanine Aminotransferase 40 U/L (6-35); Albumin Level 4.2 g/dL (3.5-5.1); Alkaline Phosphatase 126 U/L (38-126); Anion Gap 6 mmol/L (8-16); Aspartate Amino Transferase 43 U/L (14-36); Bilirubin,Total 0.7 mg/dL (0.2-1.3); Blood Urea Nitrogen 17 mg/dL (7-17); Calcium 9.5 mg/dL (8.4-10.2); Carbon Dioxide 28 mmol/L (22-30); Chloride 104 mmol/L (98-107); Cholesterol 202 mg/dL (0-200); Estimated Glomerular Filt Rate > 60; Glucose 94 mg/dL (65-110); HDL Direct 77 mg/dL; Potassium 4.5 mmol/L (3.4-5.0); Sodium 138 mmol/L (137-145); Triglycerides 154 mg/dL (<150)
[2023-03-21 19:58] LABS: LDL Cholesterol Direct 97 mg/dL
[2023-03-21 20:28] LABS: Basophils Absolute Auto 0.1 K/mm3 (0.0-0.1); Basophils Percent Auto 0.9 % (0.2-1.2); Eosinophils Absolute Auto 0.1 K/mm3 (0-0.3); Eosinophils Percent Auto 1.2 % (0-4.4); Hematocrit 39.5 % (37.0-47.0); Immature Granulocyte Absolute 0.02 K/mm3 (0.00-0.031); Immature Granulocyte Percent A 0.3 % (0-0.5); Immature Platelet Fraction Pct 2.8 % (0.9-11.2); Lymphocytes Absolute Auto 0.94 K/mm3 (0.9-3.2); Lymphocytes Percent Auto 13.6 % (18.3-44.2); Mean Corpuscular HGB Conc 30.4 g/dl (32-36); Mean Corpuscular Hemoglobin 31.1 pg (26-34); Mean Corpuscular Volume 102.3 fl (80-100); Mean Platelet Volume 10.3 fl (7.4-10.4); Monocytes Absolute Auto 0.5 K/mm3 (0.1-0.6); Monocytes Percent Auto 7.7 % (2.6-8.5); Neutrophils Absolute Auto 5.3 K/mm3 (1.3-6.7); Neutrophils Percent Auto 76.3 % (45.5-73.1); Platelet Count Result 288 k/mm3 (150-375); Red Blood Count 3.86 M/mm3 (4.2-5.4); Red Cell Distribution Width 14.6 % (11.5-14.5); White Blood Count 6.9 K/mm3 (4.5-10.0)
== END 2023-03-21 13:43 | disposition home or self-care (01) ==
LOC: ANHGOSHLAB 13:45
PROVIDERS: PCP Internal Medicine; Visit Provider Clinical Nurse Specialist
DX: D50.9 Iron deficiency anemia, unspecified (principal); D64.9 Anemia, unspecified; I10 Essential (primary) hypertension
CPT/HCPCS: 36415; 80053; 80061; 82728; 85025; 85055

== ENCOUNTER → 2023-05-09 13:34 | Outpatient (REF) | payer MEDICARE, BC, SELFPAY | LOC: ANHLAB 13:34 | PROVIDERS: PCP Internal Medicine; Visit Provider Plastic Surgery | DX: S60.351A Superficial foreign body of right thumb, initial encounter (principal); X58.XXXA Exposure to other specified factors, initial encounter | CPT/HCPCS: 88305 ==

== ENCOUNTER 2023-05-22 11:56 | Outpatient (CLI) | payer MEDICARE, BC, SELFPAY ==
[2023-05-22 12:33] LABS: Basophils Absolute Auto 0.1 K/mm3 (0.0-0.1); Basophils Percent Auto 1.1 % (0.2-1.2); Eosinophils Absolute Auto 0.3 K/mm3 (0-0.3); Eosinophils Percent Auto 5.6 % (0-4.4); Hematocrit 41.2 % (37.0-47.0); Immature Granulocyte Absolute 0.01 K/mm3 (0.00-0.031); Immature Granulocyte Percent A 0.2 % (0-0.5); Lymphocytes Absolute Auto 1.15 K/mm3 (0.9-3.2); Lymphocytes Percent Auto 20.6 % (18.3-44.2); Mean Corpuscular HGB Conc 31.6 g/dl (32-36); Mean Corpuscular Hemoglobin 31.7 pg (26-34); Mean Corpuscular Volume 100.5 fl (80-100); Mean Platelet Volume 9.6 fl (7.4-10.4); Monocytes Absolute Auto 0.6 K/mm3 (0.1-0.6); Monocytes Percent Auto 10.6 % (2.6-8.5); Neutrophils Absolute Auto 3.5 K/mm3 (1.3-6.7); Neutrophils Percent Auto 61.9 % (45.5-73.1); Platelet Count Result 218 k/mm3 (150-375); Red Cell Distribution Width 13.1 % (11.5-14.5); White Blood Count 5.6 K/mm3 (4.5-10.0)
[2023-05-22 13:57] LABS: Iron 40 ug/dL (37-170)
[2023-05-22 14:02] LABS: Anion Gap 8 mmol/L (8-16); Blood Urea Nitrogen 17 mg/dL (7-17); Calcium 9.8 mg/dL (8.4-10.2); Carbon Dioxide 28 mmol/L (22-30); Chloride 104 mmol/L (98-107); Estimated Glomerular Filt Rate > 60; Glucose 98 mg/dL (65-110); Potassium 4.3 mmol/L (3.4-5.0); Sodium 140 mmol/L (137-145)
[2023-05-22 14:10] LABS: Percent Iron Saturation 13 % (20-50)
== END 2023-05-22 11:57 | disposition home or self-care (01) ==
LOC: ANHLAB 12:04
PROVIDERS: PCP Internal Medicine; Visit Provider Internal Medicine Hematology & Oncology
DX: D64.9 Anemia, unspecified (principal)
CPT/HCPCS: 36415; 80048; 82728; 83540; 83550; 85025

== ENCOUNTER 2024-01-29 15:45 | Emergency (ER) | payer MEDICARE, BC, SELFPAY ==
--- NOTE | ~2024-01-29 | XR_ITS ---
EXAMINATION: XR hand LT 2V DATE: 01/29/2024 16:14 INDICATION: Left hand injury and pain. TECHNIQUE: 3 views of left hand were obtained. COMPARISON: None. FINDINGS: There is an oblique fracture of diaphysis of fifth metacarpal. The distal fracture fragment demonstrates 2 mm radial displacement and 2 mm shortening. 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 IMPRESSION: 1. Oblique fracture of diaphysis of fifth metacarpal. Reviewed, dictated and finalized at location A.
[2024-01-29 16:06] VITALS: BP 136/84; PULSE 92; RESP 18; TEMP 36.3; O2SAT 98
--- NOTE | 2024-01-29 16:18 | ED.UPPEXIN ---
HPI - Extremity Injury (Upper) General Chief Complaint: Extremity Injury, Upper Stated Complaint: LT hand injury Time Seen by Provider: 01/29/24 16:18 Source: patient Mode of arrival: ambulatory Limitations: no limitations History of Present Illness HPI narrative: 68-year-old female presented for complaint of left hand pain, bruising and swelling following an injury that occurred 8 days ago. She states she tripped over her cat and landed on the left hand. Since then she has noted the pain has not improved. Takes tramadol for chronic pain. Denies deformity, numbness, tingling, weakness of the hand. Related Data Home Medications Medication Instructions Recorded Confirmed ferrous sulfate 324 mg (65 mg 325 mg PO DAILY 04/27/20 01/29/24 iron) tablet,delayed release [id number] ac 400 1 tablet PO DAILY 01/20/21 01/29/24 mcg-calcium carb 500 mg-vit K1 20 mcg tablet (Women's 50 Plus Multivitamin) ascorbic acid (vitamin C) 500 mg 500 mg PO DAILY 08/29/21 01/29/24 tablet calcium carbonate 500 mg PO DAILY 12/16/21 01/29/24 zinc 50 mg tablet 50 mg PO DAILY 12/16/21 01/29/24 aspirin 81 mg tablet 81 mg PO DAILY 03/02/23 01/29/24 cholecalciferol (vitamin D3) 50 125 mcg PO DAILY 03/22/23 01/29/24 mcg (2,000 unit) capsule melatonin 10 mg capsule 10 mg PO QHS 03/22/23 01/29/24 tizanidine 2 mg capsule 4 mg PO ONCE 10/09/23 01/29/24 tramadol 50 mg tablet 100 mg PO DAILY 10/09/23 01/29/24 Allergies Allergy/AdvReac Type Severity Reaction Status Date / Time No Known Allergies Allergy Verified 10/09/23 11:10 Review of Systems Review of Systems: CONSTITUTIONAL: Denies body aches, fever, chills CARDIOVASCULAR: Denies chest pain, palpitations, or edema. RESPIRATORY: Denies cough or dyspnea. SKIN: Denies rash, itching, or wounds. MUSCULOSKELETAL: Reports left hand pain NEUROLOGIC: Denies headache, numbness, tingling, or weakness. All systems reviewed & are unremarkable except as noted in HPI and below PMFSH Past Medical History Medical History Abnormal hemoglobin Alcohol abuse Alcohol abuse Atrial fibrillation DJD of right shoulder GERD (gastroesophageal reflux disease) History of one miscarriage History of vaginal delivery x 4 Hyperlipidemia Hypertension Irregular heart beat Leg length discrepancy Postoperative anemia Sleep apnea Surgical History Surgical History History of cataract surgery History of dilation and curettage History of knee replacement, total Lft knee 02/03/21 History of tubal ligation Family History Family History Mother Patient's mother is Father Patient's father is , Onset Age: 97 Grandparent Family history of malignant neoplasm of breast in first degree relative Family history of malignant neoplasm Sibling Cerebrovascular accident Social History Social History Smoking packs per day: 0.5 Smoking cigarettes per day: 10.0 Years smoked: 2 Smoking pack-years: 1.00 Smoking status: Former smoker Second hand tobacco smoke exposure: No Alcohol intake: current Drinks per week: 21 Substance use: never Substance use type: does not use Lack of Transportation: No Lack of Food: Never True Current Housing: I Have Housing Concerned About Future Housing: No Difficulty Paying Gas/Electric Bills: No Difficulty Paying for Meds: No Currently Unemployed: No Education: Associate Degree Difficulty w/ Childcare or Family Care: No Living arrangements: with family Gender identity (if verbalized by the patient): Female Spiritual care concerns: No Comments At time of signature, I have reviewed and agree with nursing past medical, surgical, social and family history unless otherwis
== END 2024-01-29 16:44 | disposition home or self-care (01) ==
PROVIDERS: Emergency Provider Nurse Practitioner Family; PCP Internal Medicine
DX: S62.327A Displaced fracture of shaft of fifth metacarpal bone, left hand, initial encounter for closed fracture (principal); W01.0XXA Fall on same level from slipping, tripping and stumbling without subsequent striking against object, initial encounter; I48.91 Unspecified atrial fibrillation; K21.9 Gastro-esophageal reflux disease without esophagitis; E78.5 Hyperlipidemia, unspecified; I10 Essential (primary) hypertension; M19.011 Primary osteoarthritis, right shoulder; Z96.652 Presence of left artificial knee joint
CPT/HCPCS: 29125; 73120; 99214; G0463

== ENCOUNTER 2024-02-18 10:30 | Outpatient (CLI) | payer MEDICARE, BC, SELFPAY ==
--- NOTE | ~2024-02-18 | XR_ITS ---
Left Hand Technique: PA, oblique, and lateral views were obtained. Clinical History: Fifth metacarpal fracture COMPARISON: 01/29/2024 Findings: Mild progressive interval healing of oblique fracture of the fifth metacarpal shaft. There is early callus formation. No other fracture or dislocation seen.. Joint spaces are preserved. Soft t issues are unremarkable. Impression: Mild progressive interval healing of oblique fracture of the fifth metacarpal shaft. Reviewed, dictated and finalized at location . Impression: Mild progressive interval healing of oblique fracture of the fifth metacarpal s haft.
== END 2024-02-18 10:31 | disposition home or self-care (01) ==
PROVIDERS: PCP Internal Medicine; Visit Provider Plastic Surgery
DX: S62.357D Nondisplaced fracture of shaft of fifth metacarpal bone, left hand, subsequent encounter for fracture with routine healing (principal); X58.XXXD Exposure to other specified factors, subsequent encounter
CPT/HCPCS: 73130

== ENCOUNTER 2024-03-31 11:24 | Outpatient (CLI) | payer MEDICARE, BC, SELFPAY ==
[2024-03-31 11:54] LABS: Basophils Absolute Auto 0.1 K/mm3 (0.0-0.1); Basophils Percent Auto 1.2 % (0.2-1.2); Eosinophils Absolute Auto 0.1 K/mm3 (0-0.3); Hematocrit 46.4 % (37.0-47.0); Hemoglobin 15.1 g/dL (12.0-15.0); Immature Granulocyte Absolute 0.01 K/mm3 (0.00-0.031); Immature Granulocyte Percent A 0.2 % (0-0.5); Lymphocytes Absolute Auto 0.99 K/mm3 (0.9-3.2); Lymphocytes Percent Auto 16.8 % (18.3-44.2); Mean Corpuscular HGB Conc 32.5 g/dl (32-36); Mean Corpuscular Hemoglobin 32.5 pg (26-34); Mean Corpuscular Volume 99.8 fl (80-100); Mean Platelet Volume 9.5 fl (7.4-10.4); Monocytes Absolute Auto 0.7 K/mm3 (0.1-0.6); Monocytes Percent Auto 11.7 % (2.6-8.5); Neutrophils Percent Auto 68.1 % (45.5-73.1); Platelet Count Result 168 k/mm3 (150-375); Red Blood Count 4.65 M/mm3 (4.2-5.4); Red Cell Distribution Width 13.7 % (11.5-14.5); White Blood Count 5.9 K/mm3 (4.5-10.0)
[2024-03-31 13:30] LABS: Iron 117 ug/dL (37-170)
[2024-03-31 13:36] LABS: Alanine Aminotransferase 58 U/L (6-35); Albumin Level 4.6 g/dL (3.5-5.1); Alkaline Phosphatase 127 U/L (38-126); Anion Gap 7 mmol/L (4-12); Aspartate Amino Transferase 134 U/L (14-36); Bilirubin,Total 1.8 mg/dL (0.2-1.3); Blood Urea Nitrogen 18 mg/dL (7-17); Calcium 10.3 mg/dL (8.4-10.2); Carbon Dioxide 31 mmol/L (22-30); Chloride 102 mmol/L (98-107); Estimated Glomerular Filt Rate > 60; Glucose 94 mg/dL (65-110); Potassium 4.1 mmol/L (3.4-5.0); Sodium 140 mmol/L (137-145)
[2024-03-31 13:40] LABS: Percent Iron Saturation 40 % (20-50)
[2024-03-31 14:40] LABS: Folic Acid 9.6 ng/mL (2.76->20)
== END 2024-03-31 11:25 | disposition home or self-care (01) ==
LOC: ANHLAB 11:27
PROVIDERS: PCP Internal Medicine; Visit Provider Internal Medicine Hematology & Oncology
DX: D64.9 Anemia, unspecified (principal)
CPT/HCPCS: 36415; 80053; 82607; 82728; 82746; 83540; 83550; 85025

== ENCOUNTER 2024-10-16 09:41 | Outpatient (CLI) | payer MEDICARE, BC, SELFPAY ==
--- OUTSIDE RECORDS SUMMARY | 2024-10-16 10:39 | XMS_ITS | Clinical Summary ---
Author Organization [facility] Address [address] 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 This disclosure is being madepursuant to the Care Everywhere program and may not contain all information available regarding this patient. Last updated 18.[facility] [employer] Allergies Active Allergy Reactions Criticality Noted Date Comments Povidone Iodine Itching,Swelling 09/11/2018 Medications * Be aware that medications may not be up to date on this document. Alwaysverify current medications with the patient. simvastatin (ZOCOR) 10 MG tablet Take 10 mg by mouth at bedtime Active ferrous sulfate 162.5 (32.5 FE) TABS Take by mouth once daily Active lansoprazole (PREVACID) 30 MG capsule Take 30 mg by mouth daily before breakfast Active calcium carbonate (TUMS) 500 MG chew tablet Take 1 tablet by mouth daily with food Active vitamin E (TOCOPHERYL) 400 UNIT capsule Take 400 Units by mouth once daily Active multivitamin daily tablet Take 1 tablet by mouth daily with food Active Glucosamine-Cho ndroit-Vit C-Mn (GLUCOSAMINE CHONDR 1500 COMPLX PO) Active Social History Tobacco Use Types Packs/Day Years Used Date Smoking Tobacco: Never Smokeless Tobacco: Never Alcohol Use Standard Drinks/Week Comments Yes 21 (1 standard drink = 0.6 oz pu re alcohol) 3 drinks/day Comments Unknown Sex and Gender Information Value Date Recorded Sex Assigned at Not on file Legal Sex Female 11:35 AM CDT Gender Identity Not on file Sexual Orientation Not on file Last Filed Vital Signs Vital Sign Reading Time Taken Comments Blood Pressure - - Pulse - - Temperature - - Respiratory Rate - - Oxygen Saturation - - Inhaled Oxygen Concentration - - Weight 95.3 kg (210 lb) 09/11/2018 7:29 AM CDT Height 167.6 cm (5' 6 ) 09/11/2018 7:29 AM CDT Body Mass Index 33.89 09/11/2018 7:29 AM CDT Plan of Treatment Health Maintenance Due Date Last Done Comments BONE DENSITY TESTING 1954 COLOGUARD (AGES 45-75) - COL ON CA SCREENING 1954 COLON MONITORING 1954 COLONOSCOPY - COLON CA SCREENING 1954 CT COLONOGRAPHY - COLON CA SCREENING 1954 Colorectal Cancer Screening 1954 FIT - COLON CA SCREENING 1954 FLEX SIG - COLON CA SCREENING 1954 MAMMOGRAM 1954 MEDICARE AWV 12 MONTHS 1954 HEPATITIS C SCREENING 12/01/1972 DTAP/TDAP/TD VACCINES (1 - Tdap) 1973 PNEUMOCOCCAL VACCINE 50+ (1 of 1 - PCV) 2004 ZOSTER VACCINE (1 of 2) 2004 COVID-19 VACCINE ( - 2023-2 5 season) 2024 DEPRESSION SCREENING 06/25/2024 INFLUENZA VACCINE (Season Ended) 2025 Respiratory Syncytial Virus (RSV) Vaccine Pt: or over 60 yrs (1 - 1-dose 75+ series) 2029 HEPATITIS B VACCINE Aged Out No longe r eligible based on patient's age to complete this topic HIB VACCINE Aged Out No longer eligi ble based on patient's age to complete this topic HPV VACCINE Aged Out No longer eligi ble based on patient's age to complete this topic MENINGOCOCCAL (Group B) VACC INE SHARED DECISION-MAKING Aged Out No longer eligibl e based on patient's age to complete this topic MENINGOCOCCAL GROUPS A/C/Y/W VACCINE Aged Out No longer eligible b ased on patient's age to complete this topic Insurance [facility] MEDIC[employer] Care Teams Music Video Producer Relationship Specialty Start Date End Date Lucio Pandey DO PCP - General Internal Medicine 05/08/19
--- OUTSIDE RECORDS SUMMARY | 2024-10-16 10:39 | XMS_ITS | Continuity of Care Document ---
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 Package Yarns Name Role Phone Amanda De La Rosa MD Unavailable Unavailabl e Allergies, Adverse Reactions, Alerts Substance Reaction Status Criticality soap Active No Information povidone-iodine Active No Informati on Medications Medication Instructions Dosage Effective Dates (start - stop) Status Comments tizanidine 2 mg tablet take 1 tablet by oral route 2 times a day as needed for muscle spasms - Active tramadol 50 mg tablet take 1 tablet by oral route every 4 - 6 hours as needed 50 MG - Active cephalexin 500 mg capsule take 1 capsule by oral route every 6 hours 500 MG - Active Senna-S 8.6 mg-50 mg tablet take 1 tablet by oral route 2 times every day 1 tablet - Active atorvastatin 20 mg tablet - Active SIMVASTATIN (unknown strength) Not Available - Active METOPROLOL SUCCINATE (unknown strength) Not Available - Active aspirin 81 mg tablet,delayed release - Active Eliquis 5 mg tablet take 1 tablet by oral route 2 times every day 5 MG - Active Procedures Procedure Date RADEX KNE 3 VIEWS OFFICE/OUTPATIENT VISIT EST POSTOP FOLLOW-UP VISIT RADEX KNE 3 VIEWS POSTOP FOLLOW-UP VISIT POSTOP FOLLOW-UP VISIT TOTAL KNEE ARTHROPLASTY RADEX KNE 1/2 VIEWS Methylprednisolone 80mg/ml inj 23 Drugs unclassified injection DRAIN/INJECT JOINT/BURSA OFFICE/OUTPATIENT VISIT EST OFFICE/OUTPATIENT VISIT EST Synojoynt, inj., 1 mg DRAIN/INJECT JOINT/BURSA POSTOP FOLLOW-UP VISIT Synojoynt, inj., 1 mg DRAIN/INJECT JOINT/BURSA OFFICE/OUTPATIENT VISIT EST Synojoynt, inj., 1 mg DRAIN/INJECT JOINT/BURSA POSTOP FOLLOW-UP VISIT RADEX KNE COMPL 4/MORE VIEWS Methylprednisolone 80mg/ml inj 22 Drugs unclassified injection DRAIN/INJECT JOINT/BURSA OFFICE/OUTPATIENT VISIT EST DRAIN/INJECT JOINT/BURSA OFFICE/OUTPATIENT VISIT EST Orthovisc inj per dose DRAIN/INJECT JOINT/BURSA POSTOP FOLLOW-UP VISIT Orthovisc inj per dose DRAIN/INJECT JOINT/BURSA POSTOP FOLLOW-UP VISIT RADEX KNE COMPL 4/MORE VIEWS Orthovisc inj per dose DRAIN/INJECT JOINT/BURSA OFFICE/OUTPATIENT VISIT EST Betamethasone acet&sod phosp Drugs unclassified injection DRAIN/INJECT JOINT/BURSA OFFICE/OUTPATIENT VISIT EST RADEX KNE COMPL 4/MORE VIEWS RADEX KNE 3 VIEWS Betamethasone acet&sod phosp Drugs unclassified injection DRAIN/INJECT JOINT/BURSA OFFICE/OUTPATIENT VISIT EST OFFICE/OUTPATIENT VISIT EST RADEX KNE 3 VIEWS POSTOP FOLLOW-UP VISIT RADEX KNE 1/2 VIEWS OFFICE/OUTPATIENT VISIT EST TOTAL KNEE ARTHROPLASTY RADEX KNE COMPL 4/MORE VIEWS OFFICE/OUTPATIENT VISIT EST Methylprednisolone 80mg/ml inj 21 Drugs unclassified injection DRAIN/INJECT JOINT/BURSA Methylprednisolone 80mg/ml inj 21 Drugs unclassified injection DRAIN/INJECT JOINT/BURSA OFFICE/OUTPATIENT VISIT EST RADEX KNE COMPL 4/MORE VIEWS Methylprednisolone 80mg/ml inj 21 Drugs unclassified injection DRAIN/INJECT JOINT/BURSA Methylprednisolone 80mg/ml inj 21 Drugs unclassified injection DRAIN/INJECT JOINT/BURSA OFFICE/OUTPATIENT VISIT EST Methylprednisolone 80mg/ml inj 20 Drugs unclassified injection DRAIN/INJECT JOINT/BURSA OFFICE/OUTPATIENT VISIT EST Methylprednisolone 80mg/ml inj 20 Drugs unclassified injection DRAIN/INJECT JOINT/BURSA OFFICE/OUTPATIENT VISIT EST RADEX KNE COMPL 4/MORE VIEWS OFFICE/OUTPATIENT VISIT EST RADEX SPI THORACOLMBR JUNC MIN 2 VIEWS N OFFICE/OUTPATIENT VISIT EST RADEX SPI THORACOLMBR JUNC MIN 2 VIEWS S OFFICE/OUTPATIENT VISIT EST RADEX SPI THORACOLMBR JUNC MIN 2 VIEWS A OFFICE/OUTPATIENT VISIT NEW Advance Directives Directive Yes / No Effective Date File Name Other Directive No N/A N/A WARNING:The information contained in this section is historical and is provided for information only and does not constitute a legal document or any assurance that the information is still accurate. Please verify the information with the ruiz of the legal document before using it for clinical purposes. Encounters Encounter Description Practice Location Reason(s) For Visit Diagnoses Date Provider Providers Copied on Encounter OFFICE/OUTPA TIENT VISIT EST [facility], [address] [facility], [place], [address], tel:[phone] [facility] Status post total right knee replacement 4 L'Hommedieu Doniphan. [address], [place], [place], [id number]. tel:[phone] Referring Provider: Lucio Burgess, [address] [facility] [address], [place], [address]. tel:[phone] [facility], [address] [address], [place], [address], tel:[phone] [facility] No Information 4 L'Hommedieu Doniphan. [address], [place], [place], [address]. tel:[phone] [facility], [address] [address], [place], [address], [place] tel:[phone] [facility] Status post total right knee replacementPo stoperative stitch abscess 3 L'Hommedieu Doniphan. [address], [place], [place], [address]. tel:[phone] Referring Provider: Lucio Burgess, [address], [place], [address]. tel:[phone] [facility], [address] [address], [place], [address], tel:[phone] [facility] Status post total right knee replacement 3 L'Hommedieu Doniphan. [address] , [place], [place], [address]. tel:[phone] Referring Provider: Lucio Burgess, [address], [place], [address]. tel:[phone] [facility], [address], [place], [address], [place] tel:[phone] [facility] Status post total right knee replacement 8 [address], [place], [address]. tel:[phone] Referring Provider: Lucio Burgess, [address], [place], [address]. tel:[phone] [facility], [address] [facility], [place], [address], [place] tel:[phone] [facility] Unilateral primary osteoarthriti s, right knee 3 L'Homeloy Patel. [address] [facility], [place], [place], [id number]. tel:[phone] [facility], [address] [facility], [place], [address], [place] tel:[phone] [facility] Status post total right knee replacement 3 No Information Referring Provider: Amanda De La Rosa , [address], [place], [address]. tel:[phone] [facility], [address] [facility], [place], [address], [place] tel:[phone] [facility] No Information 3 L'Hommedieu Doniphan. [address] , [place], [place], [id number]. tel:[phone] [facility], [address], [place], [address], [place] tel:[phone] [facility] Patellofemora l arthritis of right kneeStatus post total right knee replacement 3- 3 L'Hommedieu Amanda. [address], [place], [place], [address]. tel:[phone] OFFICE/OUTPA TIENT VISIT EST [facility], [address] [address], [place], [address], [place] tel:[phone] [facility] Patellofemora l arthritis of right knee Dec-2 0- 3 Papo Tinsley. [address] [facility] [address], [place], [place], [address], [place]. tel:[phone] Referring Provider: Lucio Burgess, [address], [place], [address]. tel:[phone] [facility], [address] [address], [place], [address], [place] tel:[phone] [facility] Patellofemora l arthritis of right kneeStatus post total right knee replacement 3- 3 L'Hommedieu Doniphan. [address] [facility] [address] , [place], [place], [address]. tel:[phone] OFFICE/OUTPA TIENT VISIT EST [facility], [address] [address], [place], [address], [place] tel:[phone] [facility] Patellofemora l arthritis of right knee Saulo-0 8- 3 L'Hommedieu Doniphan. [address] [facility], [place], [place], [address]. tel:[phone] Referring Provider: Lucio Burgess, [address], [place], [address]. tel:[phone] [facility], [address] [address], [place], [address], [place] tel:[phone] [facility] Patellofemora l arthritis of right knee October-0 9- 3 Mike Waltersa. [address] [facility] [address], [place], [address]. tel:[phone] Referring Provider: Lucio Burgess, [address], [place], [address]. tel:[phone] OFFICE/OUTPA TIENT VISIT EST [facility], [address], [place], [address], [place] tel:[phone] [facility] Patellofemora l arthritis of right knee May-0 - 3 Laramore Janet. [address], [place], [address]. tel:[phone] Referring Provider: Lucio Burgess, [address], [place], [address]. tel:[phone] [facility], [address], [place], [address], [place] tel:[phone] [facility] Body mass index [BMI] 32.0-32.9, adultPatellof emoral arthritis of right knee Sep-2 [address] Lar[address], [place], [address]. tel:[phone] Referring Provider: Lucio Burgess, [address], [place], [address]. tel:[phone] OFFICE/OUTPA TIENT VISIT EST [facility], [address], [place], [address], [place] tel:[phone] [facility] Osteoarthriti s of right patellofemora l jointEffusion , right kneePain in left knee Dec-0 2 Laramore Janet. [address], [place], [address]. tel:[phone] Referring Provider: Lucio Burgess, [address], [place], [address]. tel:[phone] OFFICE/OUTPA TIENT VISIT EST [facility], [address], [place], [address], [place] tel:[phone] [facility] Osteoarthriti s of right patellofemora l jointEffusion , right knee 2 Laramore Janet. [address], [place], [address]. tel:[phone] Referring Provider: Lucio Burgess, [address], [place], [address]. tel:[phone] [facility], [address], [place], [address], [place] tel:[phone] [facility] Osteoarthriti s of right patellofemora l joint 2 Laramore Janet. [address], [place], [address]. tel:[phone] Referring Provider: Lucio Burgess, [address], [place], [address]. tel:[phone] [facility], [address], [place], [address], [place] tel:[phone] [facility] Osteoarthriti s of right patellofemora l joint 2 Laramore Janet. [address], [place], [address]. tel:[phone] Referring Provider: Lucio Burgess, [address], [place], [address]. tel:[phone] OFFICE/OUTPA TIENT VISIT EST [facility], [address], [place], [address], [place] tel:[phone] [facility] Pain in right kneeOsteoarth ritis of right patellofemora l joint 2 Laramore Janet. [address], [place], [address]. tel:[phone] Referring Provider: Lucio Burgess, [address], [place], [address]. tel:[phone] OFFICE/OUTPA TIENT VISIT EST [facility], [address], [place], [address], [place] tel:[phone] [facility] Osteoarthriti s of right patellofemora l joint 2 Larammarcus Waltersa. [address] [facility] [address], [place], [address]. tel:[phone] Referring Provider: Lucio Burgess, [address] [facility] [address], [place], [address]. tel:[phone] [facility], [address] [facility] [address], [place], [address], [place] tel:[phone] [facility] Osteoarthriti s of right patellofemora l joint 2 L'Hommedieu Doniphan. [address] [facility], [place], [place], [address]. tel:[phone] OFFICE/OUTPA TIENT VISIT EST [facility], [address] [address], [place], [address], [place] tel:[phone] [facility] Status post total left knee replacementOs teoarthritis of right patellofemora l jointBody mass index [BMI] 33.0-33.9, adult 2 L'Hommedieu Doniphan. [address] [facility], [place], [place], [address]. tel:[phone] Referring Provider: Lucio Burgess, [address] [facility] [address], [place], [address]. tel:[phone] OFFICE/OUTPA TIENT VISIT EST [facility], [address] [facility] [address], [place], [address], [place] tel:[phone] [facility] Status post total left knee replacementOs teoarthritis of right patellofemora l jointOsteoart hritis of left patellofemora l joint 1 L'Hommedieu Doniphan. [address] [facility], [place], [place], [address]. tel:[phone] Referring Provider: Lucio Burgess, [address], [place], [address]. tel:[phone] [facility], [address] [address], [place], [address], [place] tel:[phone] [facility] Status post total left knee replacement 1 Uli Ruff. [address], [place], [place], [address]. tel:[phone] [facility], [address] [facility] [address], [place], [address], [place] tel:[phone] [facility] Status post total left knee replacement 1 Mike Gonzales. [address], [place], [address]. tel:[phone] [facility], [address] [address], [place], [address], [place] tel:[phone] [facility] Status post total left knee replacement 1 No Information Referring Provider: Amanda De La Rosa , [address], [place], [address]. tel:[phone] OFFICE/OUTPA TIENT VISIT EST [facility], [address], [place], [address], [place] tel:[phone] [facility] Osteoarthriti s of left patellofemora l jointOsteoart hritis of right patellofemora l joint 1 Mike Gonzales. [address], [place], [address]. tel:[phone] [facility], [address] [facility], [place], [address], [place] tel:[phone] [facility] Osteoarthriti s of left patellofemora l jointStatus post total left knee replacement 1 Estrella Patel. [address], [place], [place], [address]. tel:[phone] OFFICE/OUTPA TIENT VISIT EST [facility], [address] [address], [place], [address], [place] tel:[phone] [facility] Osteoarthriti s of left patellofemora l jointBody mass index [BMI] 33.0-33.9, adult 1 L'Hommedieu Doniphan. [address] [facility], [place], [place], [address]. tel:[phone] OFFICE/OUTPA TIENT VISIT EST [facility], [address] [address], [place], [address], [place] tel:[phone] [facility] Osteoarthriti s of left patellofemora l jointOsteoart hritis of right patellofemora l joint 1 Laramore Janet. [address] [facility] [address] [facility] [address] [facility] [address], [place], [address]. tel:[phone] OFFICE/OUTPA TIENT VISIT EST [facility], [address] [address], [place], [address], [place] tel:[phone] [facility] Pain in right kneeOsteoarth ritis of right patellofemora l jointOsteoart hritis of left patellofemora l jointBody mass index [BMI] 33.0-33.9, adult 1 Laramore Janet. [address] [facility] [address] [address], [place], [address]. tel:[phone] OFFICE/OUTPA TIENT VISIT EST [facility], [address] [address], [place], [address], [place] tel:[phone] [facility] Body mass index (BMI) 32.0-32.9, adultArthriti s of left knee Dec- 0 Laramore Janet. [address] [facility] [address] [facility] [address] [facility] [address] [address], [place], [address]. tel:[phone] [facility], [address] [address], [place], [address], [place] tel:[phone] [facility] Internal derangement of left knee Fe-2 8- 0 L'Hommedieu Doniphan. [address] [facility], [place], [place], [address]. tel:[phone] OFFICE/OUTPA TIENT VISIT EST [facility], [address] [address], [place], [address], [place] tel:[phone] [facility] Internal derangement of left kneeArthritis of left kneeIliotibia l band syndrome, left leg Feb-1 3-202 0 Mike Gonzales. [address] [facility] [address], [place], [address]. tel:[phone] OFFICE/OUTPA TIENT VISIT EST [facility], [address] [address], [place], [address], [place] tel:[phone] [facility] Acute pain of left kneeBody mass index (BMI) 36.0-36.9, adultIliotibi al band syndrome of left sideInternal derangement of left knee 7-201 9 L'Hommedieu Doniphan. [address] [facility], [place], [place], [address]. tel:[phone] OFFICE/OUTPA TIENT VISIT EST [facility], [address], [address], [place] tel:[phone] [facility] I am feeling very good (chief complaint) Body mass index (BMI) 34.0-34.9, adultAge-rela blayne osteoporosis with current pathological fracture of vertebra with routine healing 201 7 Freddy Vivas. [address] [place], [place], [address]. tel:[phone] OFFICE/OUTPA TIENT VISIT EST [facility], [address] [address], [place], [address], [place] tel:[phone] [facility] My back is still pretty sore (chief complaint) Body mass index (BMI) 34.0-34.9, adultAge-rela blayne osteoporosis with current pathological fracture of vertebra with routine healing 7 Freddy Vivas. [address], [place], [place], [address]. tel:[phone] OFFICE/OUTPA TIENT VISIT NEW [facility], [address], [place], [address], tel:[phone] [facility] My back hurts alot (chief complaint) Low back painBody mass index (BMI) 34.0-34.9, adultAge-rela blayne osteoporosis with current pathological fracture, vertebra(e), initial encounter for fracture Freddy Vivas. [address], [place], [place], [address]. tel:[phone] Referring Provider: Lucio Burgess, [address], [place], [address]. tel:[phone] Family History Family Member Type Diagnosis Age At Onset No Information Immunizations Vaccine Date Status Comments Pneumo (2 yrs or older)(PPV) administered Source: Other Provider Pneumo (2 yrs or older)(PPV) administered Source: Other Provider Payers Payer name Insurance type Covered alliance party ID Rik bermeo(s) Medicare E2 OT [id number] Blue Access PPO E2 OT [id number] Social History Type Description Quantity Date Captured Comments Alcohol Use Details Unknown Caffeine Use Details Unknown Tobacco Use Status Ex-cigarette smoker 024 Smoking Status Former smoker Smoking Tobacco Use Details Cigarette: Age Stopped: 19 Cigarette: No Details Available Sex Female Vital Signs Date / Time: Height Weight BMI Pulse Rate Blood Pressure Temperature Respiratory Rate Body Surface Area Head Circumference Head Circ. Percentile Wt./Irwin. Percentile BMI percentile Pulse Ox Inhaled Ox 11:30 AM 65.00 in 88.451 kg (195.00 lbs) 32.4 5 kg/m eter (2) Chief Complaint And Reason For Visit No Information Reason For Referral Reason For Referral No Information Plan Of Treatment Date Type Action Status Referral Ordered: RADEX KNE 3 VIEWS RT knee ordered Referral Ordered: RADEX KNE 3 VIEWS RT hip ordered Referral Ordered: RADEX KNE 1/2 VIEWS RT ordered Referral Ordered: ELECTROCARDIOGRAM COMPLETE ordered Referral Ordered: X-RAY EXAM CHEST 2 VIEWS ordered Referral Ordered: RADEX KNE COMPL 4/MORE VIEWS RT knee ordered Referral Ordered: INJECTION RT knee Appointment date/timeframe: 12/21/2021 ordered Referral Ordered: RADEX KNE COMPL 4/MORE VIEWS RT ordered Referral Ordered: RADEX KNE 3 VIEWS LT ordered Referral Ordered: RADEX KNE 1/2 VIEWS LT ordered Referral Ordered: RADEX KNE COMPL 4/MORE VIEWS Bilateral knee ordered Referral Ordered: RADEX KNE COMPL 4/MORE VIEWS LT knee ordered Referral Ordered: RADEX KNE COMPL 4/MORE VIEWS LT ordered Referral Ordered: DXA BONE DENSITY STUDY AXIAL Appointment date/timeframe: 02/28/2017 ordered Referral Ordered: RADEX SPI THORACOLMBR JUNC MIN 2 VIEWS ordered Patient Education Knee Arthritis: Exercis es completed Patient Education Iliotibial Band Syndrom e: Exercises completed Future Order: Lab Order CBC With Differential/Platelet ([id number]), Ordered on: Ordered Future Order: Lab Order Comp. Me tabolic Panel ([id number]), Ordered on: Ordered Future Order: Lab Order PT and P TT ([id number]), Ordered on: Ordered Future Order: Lab Order CBC With Differential/Platelet ([id number]), Ordered on: Ordered Future Order: Lab Order Comp. Me tabolic Panel ([id number]), Ordered on: Ordered Future Order: Lab Order PT and P TT ([id number]), Ordered on: Ordered History Of Present Illness Encounter Date Complaint History Of Prese nt Illness I am feeling very good My back is still pretty sore My back hurts alot Functional Status Date Functional Assessmen t Pain Score 0/10 Instructions Date Instruction Additional Infor mation Giving encouragement to exercise Related to Body mass index [BMI] 32.0-32.9, adult Giving encouragement to exercise Related to Body mass index [BMI] 33.0-33.9, adult Giving encouragement to exercise Related to Body mass index [BMI] 33.0-33.9, adult Apply ice 20 min per hour Relate d to Osteoarthritis of right patellofemoral joint Giving encouragement to exercise Related to Body mass index [BMI] 33.0-33.9, adult Giving encouragement to exercise Related to Body mass index (BMI) 32.0-32.9, adult Appropriate post inj ection instructions given. Discussed treatment options Rela blayne to Iliotibial band syndrome of left side Giving encouragement to exercise Related to Body mass index (BMI) 36.0-36.9, adult Dietary needs education Related to Body mass index (BMI) 34.0-34.9, adult Dietary needs education Related to Body mass index (BMI) 34.0-34.9, adult Assessments Type Assessment Date assessment Status post total right knee rep lacement Patient Care Teams Name Effective Dates (start - stop) Status Members No Information
--- OUTSIDE RECORDS SUMMARY | 2024-10-16 10:39 | XMS_ITS | Encounter Summary ---
Author Organization [facility] Address [address] [facility] [place] [address] Care Team Providers Care Supervisor Statement Clerks Name Role Phone Lucio Pandey DO Primary Care Provider Encounter Details Date Type Department Care Team (Late st Contact Info) Description 07/29/[address] [facility] [place] [address] Gale Reyes MD [address] [place] [address] Social History Tobacco Use Types Packs/Day Years [...] on file Sexual Orientation Not on file documented as of this encounter Plan of Treatment Not on file documented as of this encounter Procedures Procedure Name Priority Date/Time Associated Diagnosis Comments BONE MARROW BIOPSY (STL) Routine 07/25/2019 8:00 AM CANDLEMAKER documented in this encounter Results * BONE MARROW BIOPSY (STL) (07/25/2019 8:00 AM CANDLEMAKER) Case Report Bone Marrow Patholog y Report Case: [id number] Authorizing Provider: Gale Reyes MD Collected: 07/25/2019 08:00 AM Ordering Location: [facility] Received: 07/29/2019 06:53 AM Pathologist: Lacey Domingo MD Specimens: A) - Bone Marrow Core, AB20-6 B) - Bone Marrow Clot, AB20-6 C) - Blood Peripheral, AB20-6 D) - Bone Marrow Aspirate, AB20-6 07/29/2019 12:00 PM [facility] Final Diagnosis Bone marrow, aspirate, clot section, and core biopsy: - Hypercellular marrow with maturing trilineage hematopoiesis, mild megakaryocytic hyperplasia and dyserythropoiesis. - Rare ring sideroblasts identified. - No evidence of lymphoma or high-grade myeloid neoplasm. - See description. Peripheral blood smear: - Macrocytic anemia. - Thrombocytosis. - See description. 07/29/2019 12:00 PM [facility] Comment Overall, the bone marrow is hypercellular for age with maturing trilineage hematopoiesis, megakaryocytic hyperplasia, dyserythropoiesis, and no evidence of lymphoma or a high-grade myeloid neoplasm. Ring sideroblasts are noted, but are rare and comprise less than 5% of the erythroid progenitors. Reactive causes of this morphology should be considered, including, but not limited to, toxic bone marrow injury, medication effect, nutritional deficiency, autoimmune disorder, infection, etc. If reasonably excluded, and/or if a clonal process is identified by cytogenetic/molecular studies, a low grade myelodysplastic syndrome (MDS) or an MDS/MPN overlap syndrome should be considered. Correlation with clinical findings and relevant cytogenetic/molecular studies is required. KR/MM 07/29/2019 12:00 PM [facility] Peripheral Smear Description CBC Data: WBC - 6.1, Hgb - 8.6, MCV - 111.1, MCHC - 30.7, and Plt - 427. Manual Differential Count (100 cells): 63% neutrophils, 29% lymphocytes, 6% monocytes, and 2% eosinophils. Leukocyte number: normal. Granulocyte morphology: normal. Lymphocyte morphology: normal. Erythrocyte number: decreased. Erythrocyte morphology: macrocytic. Anisopoikilocytosis: moderate. Polychromasia: moderate. Platelet number: increased. Platelet morphology: normal. 07/29/2019 12:00 PM [facility] Bone Marrow Aspirate Differential count (200 cells): 1% blasts, 50% maturing myeloid precursors, 38% erythroid progenitors, 1% monocytes, 2% eosinophils, and 8% lymphocytes. Specimen quality: adequate. Spicules: present. Trilineage Hematopoiesis: present. Myeloid:Erythroid ratio: 1.4:1. Myeloid Maturation: normal. Erythroid Maturation: Forms with irregular nuclear contours and nuclear budding present. Late mitotic figures identified. Megakaryocyte morphology: overall normal. Storage iron (by special stain): adequate. Sideroblastic iron (by special stain): Adequate, with rare ring sideroblasts identified (less than 5% erythroid precursors). Control is appropriately reactive. 07/29/2019 12:00 PM [facility] Bone Marrow Core Biopsy and Clot Section Description Specimen quality: The decalcified bone marrow core biopsy is adequate for evaluation. Cellularity: Hypercellular, estimated 60-70% Trilineage Hematopoiesis: present. Myeloid to Erythroid ratio: normal. Myeloid maturation and localization: normal. Erythroid maturation and localization: normal. Megakaryocyte number: increased. Megakaryocyte distribution: small, loose clusters. Lymphoid aggregates: absent. Clot section marrow particles: present. Clot section morphology: similar to core biopsy. Clot section storage iron (by special stain): adequate. 07/29/2019 12:00 PM [facility] Flow Cytometry Summary Concurrent flow cytometry ([id number]) shows no evidence of non-Hodgkin lymphoma or high-grade myeloid neoplasm. 07/29/2019 12:00 PM [facility] Clinical History Macrocytic anemia. 07/29/2019 12:00 PM [facility] Materials Received Received are 21 slides and 3 blocks labeled as [id number] along with the outside pathology report. The [place] [address]. All materials are returned to the referring institution, along with a copy of our final report. 07/29/2019 12:00 PM [facility] Disclaimer The performance characteristics of all immunohistochemical and indirect immunofluorescence stains (if any) cited in this report were determined by the Histopathology Laboratory of [facility]. Some of these tests were developed by our own laboratory and have not been cleared or approved by the US Food and Drug Administration. The FDA does not require this test to go through premarket FDA review. These tests are used for clinical purposes. They should not be regarded as investigational or for research. This laboratory is certified under the Clinical Laboratory Improvement Amendments (CLIA) as qualified to perform high complexity clinical laboratory testing. This case has been personally reviewed and interpreted by the attending (teaching) pathologist. 07/29/2019 12:00 PM [facility] Embedded Images 07/29/2019 12:00 PM [facility] Pathology/Cytology SPECIMEN FROM BONE MARROW OBTAINED BY ASPIRATION / Unknown 07/25/2019 8:00 AM CANDLEMAKER 07/29/2019 6:53 AM CANDLEMAKER Miscellaneous samples (specimen) BONE MARROW CLOT SPECIMEN / Unknown 07/25/2019 8:00 AM CANDLEMAKER 07/29/2019 6:53 AM CANDLEMAKER Miscellaneous samples (specimen) PERIPHERAL BLOOD / Unknown 07/25/2019 8:00 AM CANDLEMAKER 07/29/2019 6:53 AM CANDLEMAKER Miscellaneous samples (specimen) SPECIMEN FROM BONE MARROW OBTAINED BY ASPIRATION / Unknown 07/25/2019 8:00 AM CANDLEMAKER 07/29/2019 6:53 AM CANDLEMAKER us Gale Reyes MD LAB - PATHOLOGY/CYTOLOGY ORDERAB LES Final Result [facility] [address] [phone] documented in this encounter Visit Diagnoses Not on filedocumented in this encounter Care Teams Supervisor Statement Clerks Relationship Specialty Start Date End Date Lucio Pandey DO PCP - General Internal Medicine 05/08/19 documented as of this encounter
--- OUTSIDE RECORDS SUMMARY | 2024-10-16 10:39 | XMS_ITS | Clinical Summary ---
Author Organization [facility] Address [address] [place] [address] Care Team Providers Care Physical Therapy Attendant Name Role Phone Lucio Pandey DO Primary Care Provider Allergies Active Allergy Reactions Criticality Noted Date Comments Povidone-Iodine Rash,Itching,Swelling Low 9 Red swollen itch Red swollen itch Medications calcium carbonate + vitamin D (CALTRATE+D) 600 mg(1,500mg) -400 unit Tablet Take 2 Tablets by mouth daily. Active ascorbic acid, vitamin C, (VITAMIN C) 1,000 mg Tablet Take 500 mg by mouth. Active acetaminophen (TYLENOL) 500 mg tablet Take 500 mg by mouth every 6 hours as needed. Active traMADoL (ULTRAM) 50 mg tablet Take 50 mg by mouth every 4 hours. 12/13/2022 Active aspirin (ECOTRIN EC) 81 mg Tablet, Delayed Release (E.C.) Take 81 mg by mouth daily. 12/13/2022 Active ferrous sulfate 325 mg (65 mg iron) tabletIndicatio ns:Chronic anemia Take 1 tablet by mouth BID. 180 Tablet 3 05/16/2023 Active tiZANidine (ZANAFLEX) 2 mg Tablet take 1 tablet by mouth twice daily as needed for muscle spasms 07/23/2023 Active zinc gluconate 50 mg Tablet Take 50 mg by mouth daily. Active simvastatin (ZOCOR) 10 mg tablet Take 10 mg by mouth daily. 03/08/2024 Active [id number]-D8-YSAL NVRJZ-[id number]-A2-MIN ORAL Take by mouth. Active Active Problems Problem Noted Date Diagnosed Date Other dietary vitamin B12 deficiency anemia 09/24 Myelodysplastic syndrome, low grade 09/09/2019 Iron deficiency anemia 10/22/2018 Family History Medical History Relation Name Comments No Known Problems Brother 1 No Known Problems Brother 2 Stroke Brother 3 Other Brother 4 No Known Problems Father No Known Problems Mother Relation Name Status Comments Brother 1 Alive Brother 2 Alive Brother 3 Alive Brother 4 Father Mother Social History Tobacco Use Types Packs/Day Years Used Date Smoking Tobacco: Former Cigarettes 0.5 2 0 10/22/1977 - 10/23/1979 Tobacco Cessation:Counseling Given: Not Answered Alcohol Use Standard Drinks/Week Comments Yes 3 (1 standard drink = 0.6 oz pur e alcohol) 3 whisky drinks daily Comments No Sex and Gender Information Value Date Recorded Sex Assigned at Not on file Legal Sex Female 10:58 PM CDT Gender Identity Not on file Sexual Orientation Not on file Last Filed Vital Signs Vital Sign Reading Time Taken Comments Blood Pressure 124/65 04/02/2024 1:16 PM CDT Pulse 67 04/02/2024 1:16 PM CDT Temperature 36.6 C (97.8 F) 04/02/2024 1:16 PM CDT Respiratory Rate 18 04/02/2024 1:16 PM CDT Oxygen Saturation 97% 04/02/2024 1:16 PM CDT Inhaled Oxygen Concentration - - Weight 86.2 kg (190 lb) 04/02/2024 1:16 PM CDT Height 167.6 cm (5' 6 ) 03/14/2021 1:56 PM CDT Body Mass Index 30.67 03/14/2021 1:56 PM CDT Plan of Treatment Upcoming Encounters Date Type Department Care Team (Late st Contact Info) Description 12/03/2024 2:00 PM CDT Office Visit [facility] Oncology and Hematology - Junior [address] [facility] [address] [place] [address] Cullen Narvaez MD [address] [facility] [address] [place] [address] Health Maintenance Due Date Last Done Comments Pre-Diabetes and Diabetes Screening 1955 DTAP/TDAP/TD VACCINES (1 - Tdap) 1973 FIT-DNA Q 3 years 12/07/1999 Flex Sig/CT Colonography Q 5 years 12/07/1999 FIT/FOBT Q 1 year 01/29/2020 01/28/2019 BREAST CANCER SCREENING 01/23/2024 01/23/20, 01/22/2023, 04/19/2021, Additional history exists INFLUENZA VACCINE (#1) 2024 04/16/2020 OSTEOPOROSIS SCREENING 08/04/2027 3, 08/04/2022, 05/26/2021, Additional history exists RSV VACCINE (60+ or ) (1 - 1-dose 75+ series) 2029 COLORECTAL SCREENING 12/11/2032 12/11/2022, 12/12/19 Colorectal Cancer Screening 12/11/2032 ZOSTER VACCINE Completed 07/06/2020, 04/26/2020 PNEUMOCOCCAL VACCINE 50+ YEARS Completed 0 09/01/2021, 04/26/2020, 04/13/2020 Procedures Procedure Name Priority Date/Time Associated Diagnosis Comments POC OCCULT BLOOD 1 CARD Routine 01/28/2019 Iron deficiency anemia, unspecified iron deficiency anemia type from Last 3 Months or Most Recently Relevant to Health Maintenance Results * POC OCCULT BLOOD 1 CARD (01/28/2019) Stool STOOL SPECIMEN / Unknown Cullen Narvaez MD POINT OF CARE TESTING Final Res [facility] from Last 3 Months or Most Recently Relevant to Health Maintenance Insurance BS BLUE ACCESS/TRUE BLUE PPO MEDICARE PART A AND B [facility] BLUE ACCESS/TRUE BLUE PPO MEDICARE PART A AND B Care Teams Physical Therapy Attendant Relationship Specialty Start Date End Date Lucio Pandey DO [address] [facility] [address] [place] [address] PCP - General Internal Medicine 10/14/18
--- OUTSIDE RECORDS SUMMARY | 2024-10-16 10:39 | XMS_ITS | Encounter Summary ---
Author Organization [facility] Address [address] [place] [address] Care Team Providers Care Sap Bw Bi Developer Name Role Phone Lucio Pandey DO Primary Care Provider [phone] Encounter Details Date Type Department Care Team (Late Contact Info) Description 07/06/2020 Abstract [facility] [address] [place] [address] Darren Jacinto MA Social History Tobacco Use Types Packs/Day Years Used Date Smoking Tobacco: Never Smokeless Tobacco: Never Alcohol Use Standard Drinks/Week Comments Yes 0 (1 standard drink = 0.6 oz pure alcohol) Drinks [facility] whiskey everyday Comments No Sex and Gender Information Value Date Recorded Sex Assigned at Not on file Legal Sex Female 7:28 PM CDT Gender Identity Not on file Sexual Orientation Not on file COVID-19 Exposure Response Date Recorded In the last month, have you been in contact with someone who was confirmed or suspected to have Coronavirus / COVID-19? No / Unsure 07/05/2020 1:24 PM WHARF TENDER HELPER documented as of this encounter Plan of Treatment Upcoming Encounters Date Type Department Care Team (Late Contact Info) Description 09/22/2025 11:00 AM CDT Office Visit [facility], [address] [place] [address] Jurgen Ochoa MD [facility] [address] [place] [address] documented as of this encounter Procedures Procedure Name Priority Date/Time Associated Diagnosis Comments FOLATE (OUTSIDE LAB) Routine 05/28/2020 CBC (OUTSIDE LAB) Routine 05/28/2020 VITAMIN B-12 Routine 05/28/2020 BASIC METABOLIC PANEL Routine 05/28/2020 IRON BINDING TEST Routine 05/28/2020 IRON Routine 05/28/2020 FERRITIN Routine 05/28/2020 documented in this encounter Results * FERRITIN (05/28/2020) FERRITIN 55.10 11.1 - 264 05/28/2020 [facility] Final Result * IRON BINDING TEST (05/28/2020) IRON BINDING CAPACITY 352 05/28/2020 us Doc [facility] Final Result * IRON (05/28/2020) IRON 62 37 - 170 05/28/2020 us [facility] Final Result * CBC (OUTSIDE LAB) (05/28/2020) WBC 6.9 HGB 11.6 HCT 36.3 PLT 220 05/28/2020 us Doc [facility] Abstract LAB-OUTSIDE/ABSTRACTED Final Result * FOLATE (OUTSIDE LAB) (05/28/2020) FOLATE 3.6 2.76->20 05/28/2020 us Doc [facility] Abstract LAB-OUTSIDE/ABSTRACTED Final Result * VITAMIN B-12 (05/28/2020) VITAMIN B12 S/P/B 962 430 - 079 05/28/2020 us Doc [facility] Final Result * BASIC METABOLIC PANEL (05/28/2020) SODIUM S/P/B 139 POTASSIUM S/P/B 4.3 CO2 25 CHLORIDE S/P/B 106 GLUCOSE 88 mg/dL CALCIUM S/P/B 9.6 BUN 19 CREATININE S/P/B 0.70 0.5 - 1.0 EGFR NON-AFR. AMER. >60 <=90 05/28/2020 us Doc [facility] Final Result documented in this encounter Visit Diagnoses Not on filedocumented in this encounter Care Teams Sap Bw Bi Developer Relationship Specialty Start Date End Date Lucio Pandey DO [address] [facility] [address] [place] [address] PCP - General INTERNAL MEDICINE 12/06/19 documented as of this encounter
--- OUTSIDE RECORDS SUMMARY | 2024-10-16 10:39 | XMS_ITS | Encounter Summary ---
Author Organization [facility] Address [address] [facility] [address] Care Team Providers Care Stock Layer Name Role Phone Lucio Pandey DO Primary Care Provider Encounter Details Date Type Department Care Team (Late st Contact Info) Description 07/25/2019 Lab Requisition [facility] Care Pathology Lab [address] [place] [address] Marcellus Gardner MD [address] [address] Social History Tobacco Use Types Packs/Day Years [...] Procedure Name Priority Date/Time Associated Diagnosis Comments FLOW CYTOMETRY BONE MARROW Routine 07/25/2019 10:23 AM INSURANCE APPLICATION INVESTIGATOR documented in this encounter Results * FLOW CYTOMETRY BONE MARROW (07/25/2019 10:23 AM INSURANCE APPLICATION INVESTIGATOR) Case Report Flow Cytometry Case: [id number] Authorizing Provider: Marcellus Gardner MD Collected: 07/25/2019 10:23 AM Ordering Location: [facility] Care Pathology Lab Received: 07/25/2019 01:46 PM Pathologist: Lacey Domingo MD Specimen: Bone Marrow 07/25/2019 4:22 PM [facility] Final Diagnosis Bone marrow, flow cytometric immunophenotypic analysis: - No evidence of non-Hodgkin lymphoma or high-grade myeloid neoplasm. - See interpretation. 07/25/2019 4:22 PM [facility] Flow Cytometry Interpretation The bone marrow specimen has a viability of 95%. Within the lymphocyte gate, there is no monotypic B-cell population identified (kappa: lambda ratio = 1.3:1). There is no expanded T-cell population seen. By CD34/CD13 co-expression, 3.8% of all events analyzed are myeloblasts. A small hematogone population is also identified, comprising 1.8% of total events. A bone marrow aspirate smear prepared from the flow cytometry specimen is reviewed for software quality tester purposes. The bone marrow aspirate specimen shows no evidence of involvement by a non-Hodgkin lymphoma or a high-grade myeloid neoplasm. Correlation with clinical findings, the concurrent bone marrow core biopsy, and relevant cytogenetic/molecu lar studies is required. KR/MM 07/25/2019 4:22 PM [facility] Flow Cytometry Results Differential Result Comment Flow Cell Count /uL 49,800 Total Viability % 95.0 Lymphocytes % 26 Dim CD45 Region % 12 Monocytes % 13 Granulocytes % 37 07/25/2019 4:22 PM [facility] Reason for test Macrocytic anemia 07/25/2019 4:22 PM [facility] Client Specimen ID # [id number] 07/25/2019 4:22 PM [facility] Number of markers 10 were performed. A-2 Flow CD10 A-3 Flow CD13 A-5 Flow CD20 A-1 Flow CD5 A-4 Flow CD19 A-6 Flow CD33 A-7 Flow CD34 A-8 Flow CD45 A-9 Pierron+CD19+ A-10 Lambda+CD19+ 07/25/2019 4:22 PM [facility] Disclaimer Test performed at [facility], [address] [place] [address], [id number]. *The established laboratory minimum viability is 70%. Values below the minimum may result in the failure to find an abnormal population of cells. This test was developed and its performance characteristics determined by the Flow Cytometry Laboratory. It has not been cleared by the [place] Food and Drug Administration (FDA). The FDA has determined that such clearance or approval is not necessary. This test is used for clinical purposes. It should not be regarded as investigational or for research. This laboratory is regulated under the Clinical Laboratory Improvement Amendments of 1998 (CLIA) as a qualified to perform high complexity clinical testing. 07/25/2019 4:22 PM INSURANCE APPLICATION INVESTIGATOR [facility] PATHOLOG[facility] LAB Embedded Images 0 4:22 PM INSURANCE APPLICATION INVESTIGATOR [facility] LAB Pathology/Cytolo gy BONE MARROW SPECIMEN / Unknown 07/25/2019 10:23 AM INSURANCE APPLICATION INVESTIGATOR 07/25/2019 1:46 PM INSURANCE APPLICATION INVESTIGATOR Marcellus Gardner MD LAB - PATHOLOGY/CYTOLOGY ORDER ERIK Final Result Performing Organization Address City/State/[facility] Co de Phone Number [facility] [address] [phone] documented in this encounter Visit Diagnoses Not on filedocumented in this encounter Care Teams Stock Layer Relationship Specialty Start Date End Date Lucio Pandey DO PCP - General Internal Medicine 05/08/19 documented as of this encounter
--- OUTSIDE RECORDS SUMMARY | 2024-10-16 10:39 | XMS_ITS | Patient Health Record ---
Author Organization [facility] Address [address] [place], [place] [address] Care Team Providers Care Page Designer Name Role Phone Lucio Pandey Unavailable Unavailable Allergies No Known Allergies Reason For Referral No Information Plan Of Treatment No Information Insurance Providers Payer Name Payer Address Payer Phone Subscriber Number Group Number Insured Name Patient Relationship to Insured Coverage Start Date Coverage End Date Medicare Part B [place] [address] [place] [address] [id number] Marie Dowell Self - patient is the insured [facility] ([facility]) ATTN CLAIMS [address] [place] [address] [id number] Marie Dowell Self - patient is the insured Medical (General) History Medical History History ICD Code artificial joint Blood transfusion Arthritis Sleep apnea Back Trouble varicose veins Heart Disease
--- OUTSIDE RECORDS SUMMARY | 2024-10-16 10:39 | XMS_ITS | Continuity of Care Document ---
Author Organization [facility] Address [address] [place] [address] Phone Care Team Providers Care Ethanol Maintenance Mechanic Name Role Phone William Piresn Unavailable Unavailable Procedures Procedure Date Eye Exam Established Pt Refraction Eye Exam Established Pt Advance Directives Directive Yes / No Effective Date File Name No Information Encounters Encounter Description Practice Location Reason(s) For Visit Diagnoses Date Provider Providers Copied on Encounter [facility], [address], [place], [place], [id number], tel:[phone] [facility] No Information Dec-3 0-200 8 Lexis Montague. [address] , [address], [place], [place], [facility], [place]. tel:[phone] [facility], [address] [place] [address] [address], [place], [place], [id number], tel:[phone] [facility] No Information Dec-1 7-200 8 Andria Newsome. [address], [place], [place], [facility], [place]. tel:[phone] Family History Family Member Type Diagnosis Age At Onset No Information Payers Payer name Insurance type Covered alliance party ID Authoriza tion(s) No Information Social History Type Description Quantity Date Captured Comments Sex Female Smoking Status No Information Chief Complaint And Reason For Visit No Information Reason For Referral Reason For Referral No Information History Of Present Illness Encounter Date Complaint History Of Prese nt Illness No Information Functional Status Date Functional Assessmen t No Information Instructions Date Instruction Additional Infor mation No Information Assessments Type Assessment Date No Information Patient Care Teams Name Effective Dates (start - stop) Status Members No Information
--- OUTSIDE RECORDS SUMMARY | 2024-10-16 10:39 | XMS_ITS | Clinical Summary ---
Author Organization [facility] Address [facility] [place] [address] Care Team Providers Care Vault Mechanic Name Role Phone Lucio Pandey DO Primary Care Provider [phone] Allergies No known active allergies Medications ferrous sulfate, 65 mg elemental, 325 (65 FE) MG tablet Take 1 tablet (325 mg total) by mouth daily with breakfast. Active zinc gluconate 50 MG Tab Take 1 tablet (50 mg total) by mouth daily. Active Multiple Vitamins-Hardee als (SM ONE DAILY WOMENS) Tab Take 1 tablet by mouth daily. Active Ascorbic Acid (VITAMIN C) 500 MG Cap Take 500 mg by mouth nightly at bedtime. 09/27/19 22 Active calcium carbonate (OS-DEWAYNE) 600 MG tablet Take 1 tablet (600 mg total) by mouth every evening. Active vitamin D3, cholecalcifero l, (CHOLECALCIFER OL) 125 mcg capsule Take 1 capsule (5,000 Units total) by mouth daily. Active traMADol (ULTRAM) 50 MG tablet Take 1 tablet (50 mg total) by mouth every 8 (eight) hours as needed. 09/07/19 24 Active tiZANidine HCl 2 MG Cap 09/07/19 24 Active simvastatin (ZOCOR) 10 MG tablet Take 1 tablet (10 mg total) by mouth daily. 03/08/20 24 Active ASPIRIN LOW DOSE 81 MG tablet TAKE 1 TABLET DAILY 90 tablet 3 10/11/19 25 Active acetaminophen 325 MG tablet Take 2 tablets (650 mg total) by mouth every 6 (six) hours as needed for Fever. 025 Discontinued(Pt . elected to discontinue med) aspirin EC (ECOTRIN) 81 MG tablet Take 1 tablet (81 mg total) by mouth daily. 90 tablet 1 03/20/20 24 025 Discontinued Active Problems Problem Noted Date Diagnosed Date Anemia 12/08/2022 Atrial fibrillation with RVR ([facility]) 0 09/08/2022 Presence of Watchman left atrial appendage closu re device 08/22/2022 Osteoporosis 08/04/2022 Persistent atrial fibrillation ([facility]) 12/12/2019 Assessment & Plan (01/03/2021 2:03 PM CDT): This is a 65-year-old female with a history of paroxysml symptomatic atrial fibrillation who presents today for evaluation of her arrhythmia. She wishes to continue on beta blockers. She has intermittant palpitations which she describes is mostly extrasystoles and extra beats. Monitor showing paroxysmal AT, and started bbl. Unfortunately had BP issues, for which in 08/2020, she was taken off beta blockers. As for her L knee arthroplasty, she is low risk for low risk procedure. She can interrupt her anticoagulant as necessary for her procedures. We discussed anticoagulation at length and ablation as means for her penitentiary rhythm management. I will have her referred to a partner for general cardiovascular followup as well. We will plan to see her back in six months to reassess her AF burden and mangement plan. We will obtain a TTE to assess her LV function and assess for valvular lesions. Encounters Date Type Department Care Team Description 09/19/2024 10:45 AM CDT Office Visit [facility], [address] [address] Jurgen Ochoa MD Atrial Fibrillation; Hypertension; Lipids; Follow Up (6 month follow up) 09/19/2024 Travel from Last 3 Months Immunizations Immunization Administration Dates Next Due Fluzone High Dose - >Age 65 (Prefilled Syringe) 04/16/2020 Pneumococcal (Pneumovax 23) 09/01/2021, 0 Pneumococcal (Prevnar 13) 04/26/2020 Shingrix 07/06/2020,04/26/2020 Family History Medical History Relation Comments Coronary artery disease Neg Hx Social History Tobacco Use Types Packs/Day Years Used Date Smoking Tobacco: Never Smokeless Tobacco: Never Tobacco Cessation:Counseling Given: Not Answered Alcohol Use Standard Drinks/Week Comments Yes 0 (1 standard drink = 0.6 oz pure alcohol) Drinks sonia chairez everyday Humiliation, Afraid, Rape, and Kick questionnair e Answer Date Recorded Within the last year, have y ou been afraid of your partner or ex-partner? No 12/08/2022 Within the last year, have y ou been humiliated or emotionally abused in other ways by your partner or ex-partner? No Within the last year, have y ou been kicked, hit, slapped, or otherwise physically hurt by your partner or ex-partner? No 12/08/2022 Within the last year, have y ou been raped or forced to have any kind of sexual activity by your partner or ex-partner? No 12/08/2022 Overall Financial Resource Strain (CARDIA) Answe r Date Recorded How hard is it for you to pa y for the very basics like food, housing, medical care, and heating? Not hard at all 12/08/2022 Hunger Vital Sign Answer Date Recorded Within the past 12 months, y ou worried that your food would run out before you got the money to buy more. Never true 12/09/19 23 Within the past 12 months, t he food you bought just didn't last and you didn't have money to get more. Never true 12/08/2022 PRAPARE - Transportation Answer Date Re corded In the past 12 months, has l ack of transportation kept you from medical appointments or from getting medications? No 11/23 In the past 12 months, has l ack of transportation kept you from meetings, work, or from getting things needed for daily living? No 12/08/2022 Housing Stability Vital Sign Answer Paulino e Recorded In the last 12 months, was t here a time when you were not able to pay the mortgage or rent on time? No 12/08/2022 In the last 12 months, how many places have you lived? 1 12/08/2022 In the last 12 months, was t here a time when you did not have a steady place to sleep or slept in a half-way (including now)? No 12/08/2022 Comments No Sex and Gender Information Value Date Recorded Sex Assigned at Not on file Legal Sex Female 7:28 PM CDT Gender Identity Not on file Sexual Orientation Not on file Last Filed Vital Signs Vital Sign Reading Time Taken Comments Blood Pressure 110/80 09/19/2024 10:48 AM CDT Pulse 84 09/19/2024 10:48 AM CDT Temperature 36 C (96.8 F) 12/11/2022 5:17 PM CDT Respiratory Rate 16 12/11/2022 6:45 PM CDT Oxygen Saturation 96% 09/19/2024 10:48 AM CDT Inhaled Oxygen Concentration - - Weight 81.2 kg (179 lb) 09/19/2024 10:48 AM CDT Height 165.1 cm (5' 5 ) 09/19/2024 10:48 AM CDT Body Mass Index 29.79 09/19/2024 10:48 AM CDT Plan of Treatment Upcoming Encounters Date Type Department Care Team (Late st Contact Info) Description 09/22/2025 11:00 AM CDT [facility], [address] [place], [place] [id number] Jurgen Ochoa MD [facility] [address] [place], [place] [id number] Health Maintenance Due Date Last Done Comments Hepatitis C 1972 DTaP, Tdap and Td Vaccines ( 1 - Tdap) 1973 RSV Immunization or 60+ Years (1 - Risk 60-74 years 1-dose series) 2014 Mammogram Screening 10/02/2015 10/01/2013, 07/17/2012 Annual Medicare Wellness Visit 12/07/2019 COVID-19 Vaccine (2023-2 5 season) 2024 04/21/2021, 09/16/2020, 08/26/2020 PHQ-2 (Physician [place]) 06/25/2024 Colorectal Cancer Screening Colonoscopy (10 Years) 12/11/2032 12/11/2022, 12/11/2022 Zoster Vaccines Completed 07/06/2020, 04/26/2020 Pneumococcal Vaccine: 50+ Years Completed 09/01/2021, 04/26/2020, 04/13/2020 Colorectal Cancer Screening FIT/FOBT (1 Year) Discontinued 12/10/2022, 01/28/2019 Dexa Scan (General) Completed 10/05/2023, 08/04/2022, 08/04/2022 Meningococcal B Vaccine Aged Out No l onger eligible based on patient's age to complete this topic Meningococcal Vaccine Aged Out No femi chuck eligible based on patient's age to complete this topic RSV Immunizations Under 20 Months Aged Out No longer eligible based on patient's age to complete this topic Goals Goal Patient Goal Type Associated Problems Recent Progress Patient-Stated? Author Health - patient able to perform ADLs independently Lifestyle No Blair Benjamin, senior center director - family caregiver with be involved in care transitions and discharge planning Lifestyle No Hayde Lobo, IT SECURITY CONSULTING DIRECTORair force pilot Devices Implanted Type Area Shopping Centre Manager Device Identifier Shelf Expiration Date Model / Serial / Lot Closure Device- [id number] Implanted:Qty : 1 on 08/22/2022 by Jose Manuel Quintero MD Closure Device Left: [employer] 05/09/2025 [id number] / / [id number] Alfredo Left Femur-Nageezi 4 Screws Procedures Procedure Name Priority Date/Time Associated Diagnosis Comments COLONOSCOPY Routine 12/11/2022 7:09 AM CDT OCCULT BLOOD, FECES STAT 12/10/2022 1 :06 PM CDT from Last 3 Months or Most Recently Relevant to Health Maintenance Results * OCCULT BLOOD, FECES (12/10/2022 1:06 PM CDT) OCCULT BLOOD FECAL POSITIVE 12/10/2022 1:40 PM CDT [facility] STOOL SPECIMEN / Unknown 12/10/2022 1:06 PM CDT Sabino SEQUEIRA BODY FLUIDS AND STOOLS VIANCA CARRILLO Final Result [facility] [address] [place] [address], from Last 3 Months or Most Recently Relevant to Health Maintenance Insurance MEDICARE [facility] MEDICARE [facility] Advance Directives * Full Code (Latest Code Status on File) Date Activated Date Inactivated Comments 12/08/2022 4:30 PM 12/11/2022 8:56 PM * Full Code Date Activated Date Inactivated Comments 09/08/2022 4:10 PM 09/09/2022 5:54 PM Care Teams Vault Mechanic Relationship Specialty Start Date End Date Lucio Pandey DO [address] [place] [address] PCP - General INTERNAL MEDICINE 12/06/19
[2024-10-16 20:03] LABS: Alanine Aminotransferase 65 U/L (6-35); Albumin Level 3.9 g/dL (3.5-5.1); Alkaline Phosphatase 140 U/L (38-126); Anion Gap 6 mmol/L (4-12); Aspartate Amino Transferase 139 U/L (14-36); Bilirubin,Total 1.2 mg/dL (0.2-1.3); Blood Urea Nitrogen 13 mg/dL (7-17); Calcium 9.3 mg/dL (8.4-10.2); Carbon Dioxide 32 mmol/L (22-30); Chloride 102 mmol/L (98-107); Cholesterol 207 mg/dL (0-200); Estimated Glomerular Filt Rate > 60; Glucose 83 mg/dL (65-110); HDL Direct 94 mg/dL; Potassium 4.1 mmol/L (3.4-5.0); Sodium 140 mmol/L (137-145); Triglycerides 97 mg/dL (<150)
[2024-10-16 20:14] LABS: LDL Cholesterol Direct 84 mg/dL
[2024-10-16 20:57] LABS: Hemoglobin A1C 4.7 % (<5.7)
== END 2024-10-16 09:42 | disposition home or self-care (01) ==
LOC: ANHGOSHLAB 09:42
PROVIDERS: PCP Clinical Nurse Specialist; Visit Provider Clinical Nurse Specialist
DX: R73.01 Impaired fasting glucose (principal); I10 Essential (primary) hypertension; F10.10 Alcohol abuse, uncomplicated; E53.8 Deficiency of other specified B group vitamins; R74.01 Elevation of levels of liver transaminase levels
CPT/HCPCS: 36415; 80053; 80061; 82607; 82746; 83036

== ENCOUNTER 2024-10-16 09:56 | Outpatient (CLI) | payer MEDICARE, BC, SELFPAY ==
--- NOTE | ~2024-10-16 | US_ITS ---
Limited Abdominal Sonogram: Real-time sonographic imaging of the right upper quadrant was performed. Clinical History: Abnormal liver enzyme levels Findings: The liver appears echogenic with no evidence of mass lesion or bile duct dilatation. Main portal vein demonstrates normal direction of flow. The gallbladder is well distended, and appears nor mal with no evidence of gallstone or wall thickening. The common bile duct measures 4 mm. The visual ized pancreas, aorta, and IVC are unremarkable. Impression: Diffuse fatty infiltration of liver. Reviewed, dictated and finalized at location M. Impression: Diffuse fatty infiltration of liver.
== END 2024-10-16 09:57 | disposition home or self-care (01) ==
LOC: GOSHIMG 09:57
PROVIDERS: PCP Clinical Nurse Specialist; Visit Provider Clinical Nurse Specialist
DX: R74.01 Elevation of levels of liver transaminase levels (principal); K76.0 Fatty (change of) liver, not elsewhere classified
CPT/HCPCS: 76705

== ENCOUNTER 2024-12-01 11:35 | Outpatient (CLI) | payer MEDICARE, BC, SELFPAY ==
[2024-12-01 11:50] LABS: Basophils Absolute Auto 0.1 K/mm3 (0.0-0.1); Basophils Percent Auto 1.6 % (0.2-1.2); Eosinophils Absolute Auto 0.3 K/mm3 (0-0.3); Eosinophils Percent Auto 3.7 % (0-4.4); Hematocrit 38.9 % (37.0-47.0); Hemoglobin 12.5 g/dL (12.0-15.0); Immature Granulocyte Absolute 0.02 K/mm3 (0.00-0.031); Immature Granulocyte Percent A 0.3 % (0-0.5); Lymphocytes Absolute Auto 1.35 K/mm3 (0.9-3.2); Lymphocytes Percent Auto 19.8 % (18.3-44.2); Mean Corpuscular HGB Conc 32.1 g/dl (32-36); Mean Corpuscular Hemoglobin 32.2 pg (26-34); Mean Corpuscular Volume 100.3 fl (80-100); Mean Platelet Volume 9.9 fl (7.4-10.4); Monocytes Absolute Auto 0.7 K/mm3 (0.1-0.6); Neutrophils Absolute Auto 4.4 K/mm3 (1.3-6.7); Neutrophils Percent Auto 64.6 % (45.5-73.1); Platelet Count Result 283 k/mm3 (150-375); Red Blood Count 3.88 M/mm3 (4.2-5.4); Red Cell Distribution Width 13.8 % (11.5-14.5); White Blood Count 6.8 K/mm3 (4.5-10.0)
[2024-12-01 12:53] LABS: Iron 37 ug/dL (37-170)
[2024-12-01 12:58] LABS: Alanine Aminotransferase 26 U/L (6-35); Albumin Level 3.7 g/dL (3.5-5.1); Alkaline Phosphatase 69 U/L (38-126); Anion Gap 6 mmol/L (4-12); Aspartate Amino Transferase 47 U/L (14-36); Bilirubin,Total 0.5 mg/dL (0.2-1.3); Blood Urea Nitrogen 16 mg/dL (7-17); Calcium 10.1 mg/dL (8.4-10.2); Carbon Dioxide 27 mmol/L (22-30); Chloride 110 mmol/L (98-107); Estimated Glomerular Filt Rate > 60; Glucose 89 mg/dL (65-110); Potassium 4.5 mmol/L (3.4-5.0); Sodium 143 mmol/L (137-145); Total Protein 6.1 g/dL (6.3-8.2)
--- OUTSIDE RECORDS SUMMARY | 2024-12-01 13:09 | XMS_ITS | Clinical Summary ---
Author Organization [facility] Address [address] [place] [address] Care Team Providers Care Director Of Business Services Name Role Phone Lucio Pandey DO Primary [...] 10 mg by mouth daily. 03/08/2024 Active [id number] ORAL Take by mouth. Active Active Problems Problem Noted Date Diagnosed Date Other dietary vitamin B12 deficiency anemia 09/24 Myelodysplastic syndrome, low grade 09/09/2019 Iron deficiency anemia 10/22/2018 Encounters Date Type Department Care Team Description 11/25/2024 External Device Data STL ABSTRACTION Provider, Abstract from Last 3 Months Family History Medical History Relation Name Comments [...] 1:16 PM CDT Height 167.6 cm (5' 6) 03/14/2021 1:56 PM CDT Body Mass Index 30.67 03/14/2021 1:56 PM CDT Plan of Treatment Upcoming Encounters Date Type Department Care Team (Late st Contact Info) Description 12/03/2024 2:00 PM CDT Office Visit [facility] - [facility] [address] [facility] [address] [place] [address] Cullen Narvaez MD [address] [facility] [address] [place] [address] Health Maintenance Due Date Last Done Comments Pre-Diabetes and Diabetes Screening 1954 DTAP/TDAP/TD VACCINES (1 - Tdap) 1973 Traditional Medicare (ACO) A nnual Wellness Visit 1973 FIT-DNA Q 3 years 12/07/1999 Flex [...] CARD (01/28/2019) Stool STOOL SPECIMEN / Unknown us Cullen Narvaez MD POINT OF CARE TESTING Final Res [facility] from Last 3 Months or Most Recently Relevant to Health Maintenance Insurance BCBS BLUE ACCESS/TRUE BLUE PPO MEDICARE PART A AND B [facility] BLUE ACCESS/TRUE BLUE PPO MEDICARE PART A AND B Care Teams Director Of Business Services Relationship Specialty Start Date End Date Lucio Pandey DO [address] [address] PCP - General Internal Medicine 10/14/18
--- OUTSIDE RECORDS SUMMARY | 2024-12-01 13:09 | XMS_ITS | Continuity of Care Document ---
Author Organization [facility] Address [address] [place] [address] Phone Care Team Providers Care Board Certified Behavioral Analyst Name Role Phone William Piresn Unavailable Unavailable Procedures Procedure Date Eye Exam Established Pt Refraction Eye Exam Established Pt Advance Directives Directive Yes / No Effective Date File Name No Information Encounters Encounter Description Practice Location Reason(s) For Visit Diagnoses Date Provider Providers Copied on Encounter [facility], [address], [place], [place], [id number], tel:[phone] [facility] No Information Dec-3 0-200 8 Lexis Montague. [address] [facility] [place] , [address], [place], [place], [facility], [place]. tel:[phone] [facility], [address] [place] [address] [address], [place], [place], [id number], tel:[phone] [facility] No Information Dec-1 7-200 8 Andria Newsome. [address] [facility] [address] [place] [address], [place], [place], [facility], [place]. tel:[phone] Family History Family Member Type Diagnosis Age [...]
--- OUTSIDE RECORDS SUMMARY | 2024-12-01 13:09 | XMS_ITS | Patient Health Record ---
Author Organization [facility] Address [address] [place], [place] [id number] Care Team Providers Care Air Control/Anti Air Warfare Officer Name Role Phone Lucio Pandey Unavailable Unavailable Allergies No Known Allergies Reason For Referral No Information Plan Of Treatment No Information Insurance Providers Payer Name Payer Address Payer Phone Subscriber Number Group Number Insured Name Patient Relationship to Insured Coverage Start Date Coverage End Date Medicare Part B [place] [address] [place] [address] [id number] Marie [place] Self - patient is the insured [facility] ([facility]) ATTN CLAIMS [address] [place] [address] [id number] Marie [place] Self - patient is the insured Medical (General) History Medical History History ICD Code artificial joint Blood transfusion Arthritis Sleep apnea Back Trouble varicose veins Heart Disease
--- OUTSIDE RECORDS SUMMARY | 2024-12-01 13:09 | XMS_ITS | Continuity of Care Document ---
Author Organization [facility] Address [address] [facility] [address] [place] [address] Phone Care Team Providers Care Electric Meter Repairer Apprentice Name Role Phone Amanda De La Rosa [...] OFFICE/OUTPA TIENT VISIT EST [facility], [address] [facility], [place], [address], tel:[phone] [facility] Status post total right knee replacement 4 [place]. [address], [place], [place], [address]. tel:[phone] Referring Provider: Lucio Burgess, [address] [facility] [address], [place], [address]. tel:[phone] [facility], [address] [address], [place], [address], tel:[phone] [facility] No Information 4 [place]. [address], [place], [place], [address]. tel:[phone] [facility], [address] [address], [place], [address], [place] tel:[phone] [facility] Status post total right knee replacementPo stoperative stitch abscess 3 [place]. [address], [place], [place], [address]. tel:[phone] Referring Provider: Lucio Burgess, [address], [place], [address]. tel:[phone] [facility], [address] [address], [place], [address], tel:[phone] [facility] Status post total right knee replacement 3 [place]. [address] , [place], [place], [address]. tel:[phone] Referring Provider: Lucio Burgess, [address], [place], [address]. tel:[phone] [facility], [address], [place], [address], [place] tel:[phone] [facility] Status post total right knee replacement 8 3 Mike Gonzales. [address], [place], [address]. tel:[phone] Referring Provider: Lucio Burgess, [address], [place], [address]. tel:[phone] [facility], [address] [facility] [address], [place], [address], [place] tel:[phone] [facility] Unilateral primary osteoarthriti s, right knee 3 L'Homeloy Patel. [address], [place], [place], [address]. tel:[phone] [facility], [address] [facility], [place], [address], [place] tel:[phone] [facility] Status post total right knee replacement 3 No Information Referring Provider: Amanda De La Rosa , [address], [place], [address]. tel:[phone] [facility], [address] [facility] [facility] [address] [facility], [place], [address], [place] tel:[phone] [facility] No Information 3 [place]. [address] , [place], [place], [address]. tel:[phone] [facility], [address], [place], [address], [place] tel:[phone] [facility] Patellofemora l arthritis of right kneeStatus post total right knee replacement 3- 3 [place]Hom[place] Amanda. [address], [place], [place], [address]. tel:[phone] OFFICE/OUTPA TIENT VISIT EST [facility], [address] [address], [place], [address], [place] tel:[phone] [facility] Patellofemora l arthritis of right knee Dec-2 0- 3 Papo Tinsley. [address] [facility] [address], [place], [place], [address], [place]. tel:[phone] Referring Provider: Lucio Burgess, [address], [place], [address]. tel:[phone] [facility], [address] [address], [place], [address], [place] tel:[phone] [facility] Patellofemora l arthritis of right kneeStatus post total right knee replacement 3- 3 [place]. [address] [facility] [address] , [place], [place], [address]. tel:[phone] OFFICE/OUTPA TIENT VISIT EST [facility], [address] [address], [place], [address], [place] tel:[phone] [facility] Patellofemora l arthritis of right knee Saulo-0 8- 3 [place]. [address] [facility], [place], [place], [address]. tel:[phone] Referring Provider: Lucio Burgess, [address], [place], [address]. tel:[phone] [facility], [address] [address], [place], [address], [place] tel:[phone] [facility] Patellofemora l arthritis of right knee October-0 9- 3 Mike Waltersa. [address] [facility] [address], [place], [address]. tel:[phone] Referring Provider: Lucio Burgess, [address], [place], [address]. tel:[phone] OFFICE/OUTPA TIENT VISIT EST [facility], [address], [place], [address], [place] tel:[phone] [facility] Patellofemora l arthritis of right knee May-0 - 3 [place] Janet. [address], [place], [address]. tel:[phone] Referring Provider: Lucio Burgess, [address], [place], [address]. tel:[phone] [facility], [address], [place], [address], [place] tel:[phone] [facility] Body mass index [BMI] 32.0-32.9, adultPatellof emoral arthritis of right knee Sep-2 3 [place]. [address], [place], [address]. tel:[phone] Referring Provider: Lucio Burgess, [address], [place], [address]. tel:[phone] OFFICE/OUTPA TIENT VISIT EST [facility], [address], [place], [address], [place] tel:[phone] [facility] Osteoarthriti s of right patellofemora l jointEffusion , right kneePain in left knee Dec-0 2 [place] Janet. [address], [place], [address]. tel:[phone] Referring Provider: Lucio Burgess, [address], [place], [address]. tel:[phone] OFFICE/OUTPA TIENT VISIT EST [facility], [address], [place], [address], [place] tel:[phone] [facility] Osteoarthriti s of right patellofemora l jointEffusion , right knee 2 [place] Janet. [address], [place], [address]. tel:[phone] Referring Provider: Lucio Burgess, [address], [place], [address]. tel:[phone] [facility], [address], [place], [address], [place] tel:[phone] [facility] Osteoarthriti s of right patellofemora l joint 2 [place] Janet. [address], [place], [address]. tel:[phone] Referring Provider: Lucio Burgess, [address], [place], [address]. tel:[phone] [facility], [address], [place], [address], [place] tel:[phone] [facility] Osteoarthriti s of right patellofemora l joint 2 [place] Janet. [address], [place], [address]. tel:[phone] Referring Provider: Lucio Burgess, [address], [place], [address]. tel:[phone] OFFICE/OUTPA TIENT VISIT EST [facility], [address], [place], [address], [place] tel:[phone] [facility] Pain in right kneeOsteoarth ritis of right patellofemora l joint 2 [place] Janet. [address], [place], [address]. tel:[phone] Referring Provider: Lucio Burgess, [address], [place], [address]. tel:[phone] OFFICE/OUTPA TIENT VISIT EST [facility], [address], [place], [address], [place] tel:[phone] [facility] Osteoarthriti s of right patellofemora l joint 2 Larammarcus Waltersa. [address] [facility] [address], [place], [address]. tel:[phone] Referring Provider: Lucio Burgess, [address] [facility] [address], [place], [address]. tel:[phone] [facility], [address] [facility] [address], [place], [address], [place] tel:[phone] [facility] Osteoarthriti s of right patellofemora l joint 2 [place]. [address] [facility], [place], [place], [address]. tel:[phone] OFFICE/OUTPA TIENT VISIT EST [facility], [address] [address], [place], [address], [place] tel:[phone] [facility] Status post total left knee replacementOs teoarthritis of right patellofemora l jointBody mass index [BMI] 33.0-33.9, adult 2 [place]. [address] [facility], [place], [place], [address]. tel:[phone] Referring Provider: Lucio Burgess, [address] [facility] [address], [place], [address]. tel:[phone] OFFICE/OUTPA TIENT VISIT EST [facility], [address] [facility] [address], [place], [address], [place] tel:[phone] [facility] Status post total left knee replacementOs teoarthritis of right patellofemora l jointOsteoart hritis of left patellofemora l joint 1 [place]. [address] [facility], [place], [place], [address]. tel:[phone] Referring Provider: Lucio Burgess, [address], [place], [address]. tel:[phone] [facility], [address] [address], [place], [address], [place] tel:[phone] [facility] Status post total left knee replacement 1 Uli Ruff. [address], [place], [place], [address]. tel:[phone] [facility], [address] [facility] [facility] [address], [place], [address], [place] tel:[phone] [facility] Status post total left knee replacement 1 Mike Gonzales. [address], [place], [address]. tel:[phone] [facility], [address] [address], [place], [address], [place] tel:[phone] [facility] Status post total left knee replacement 1 No Information Referring Provider: Amanda De La Rosa , [address], [place], [address]. tel:[phone] OFFICE/OUTPA TIENT VISIT EST [facility], [address], [place], [address], [place] tel:[phone] [facility] Osteoarthriti s of left patellofemora l jointOsteoart hritis of right patellofemora l joint 1 Mike Gonzales. [address], [place], [address]. tel:[phone] [facility], [address] [facility], [place], [address], [place] tel:[phone] [facility] Osteoarthriti s of left patellofemora l jointStatus post total left knee replacement 1 Estrella Patel. [address], [place], [place], [address]. tel:[phone] OFFICE/OUTPA TIENT VISIT EST [facility], [address] [address], [place], [address], [place] tel:[phone] [facility] Osteoarthriti s of left patellofemora l jointBody mass index [BMI] 33.0-33.9, adult 1 [place]. [address] [facility], [place], [place], [address]. tel:[phone] OFFICE/OUTPA TIENT VISIT EST [facility], [address] [address], [place], [address], [place] tel:[phone] [facility] Osteoarthriti s of left patellofemora l jointOsteoart hritis of right patellofemora l joint 1 [place] Janet. [address] [facility] [address], [place], [address]. tel:[phone] OFFICE/OUTPA TIENT VISIT EST [facility], [address] [address], [place], [address], [place] tel:[phone] [facility] Pain in right kneeOsteoarth ritis of right patellofemora l jointOsteoart hritis of left patellofemora l jointBody mass index [BMI] 33.0-33.9, adult 1 [place] Janet. [address] [facility] [address], [place], [address]. tel:[phone] OFFICE/OUTPA TIENT VISIT EST [facility], [address] [address], [place], [address], [place] tel:[phone] [facility] Body mass index (BMI) 32.0-32.9, adultArthriti s of left knee Dec- 0 [place] Janet. [address] [facility] [address], [place], [address]. tel:[phone] [facility], [address] [address], [place], [address], [place] tel:[phone] [facility] Internal derangement of left knee Fe-2 8- 0 [place]. [address], [place], [place], [address]. tel:[phone] OFFICE/OUTPA TIENT VISIT EST [facility], [address] [address], [place], [address], [place] tel:[phone] [facility] Internal derangement of left kneeArthritis of left kneeIliotibia l band syndrome, left leg Feb-1 3-202 0 Mike Gonzales. [address], [place], [address]. tel:[phone] OFFICE/OUTPA TIENT VISIT EST [facility], [address] [address], [place], [address], [place] tel:[phone] [facility] Acute pain of left kneeBody mass index (BMI) 36.0-36.9, adultIliotibi al band syndrome of left sideInternal derangement of left knee 7-201 9 [place]. [address] [facility], [place], [place], [address]. tel:[phone] OFFICE/OUTPA TIENT VISIT EST [facility], [address], [address], [place] tel:[phone] [facility] I am feeling very good (chief complaint) Body mass index (BMI) 34.0-34.9, adultAge-rela blayne osteoporosis with current pathological fracture of vertebra with routine healing 201 7 Freddy [address]. [address] [place], [place], [address]. tel:[phone] OFFICE/OUTPA TIENT VISIT EST [facility], [address] [address], [place], [address], [place] tel:[phone] [facility] My back is still pretty sore (chief complaint) Body mass index (BMI) 34.0-34.9, adultAge-rela blayne osteoporosis with current pathological fracture of vertebra with routine healing 7 Freddy Vivas. [address], [place], [place], [address]. tel:[phone] OFFICE/OUTPA TIENT VISIT NEW [facility], [address], [place], [address], tel:[phone] [facility] My back hurts alot (chief complaint) Low back painBody mass index (BMI) 34.0-34.9, adultAge-rela blayne osteoporosis with current pathological fracture, vertebra(e), initial encounter for fracture Freddy Vivas. [address], [place], [place], [address]. tel:[phone] Referring Provider: Lucio Burgess, [address], [place], [address]. tel:[phone] Family History Family Member Type Diagnosis Age At Onset No Information Immunizations Vaccine Date Status Comments Pneumo (2 yrs or older)(PPV) administered Source: Other Provider Pneumo (2 yrs or older)(PPV) administered Source: Other Provider Payers Payer name Insurance type Covered libertarian ID Rik bermeo(s) Medicare E2 OT [id number] Blue Access PPO E2 OT [id number] Social History Type Description Quantity Date Captured [...] Future Order: Lab Order CBC With Differential/Platelet ([id number]), Ordered on: Ordered Future Order: Lab Order Comp. Me tabolic Panel ([id number]), Ordered on: Ordered Future Order: Lab Order PT and P TT ([id number]), Ordered on: Ordered Future Order: Lab Order CBC With Differential/Platelet ([id number]), Ordered on: Ordered Future Order: Lab Order Comp. Me tabolic Panel ([id number]), Ordered on: Ordered Future Order: Lab Order PT and P TT ([id number]), Ordered on: Ordered History Of Present Illness [...]
--- OUTSIDE RECORDS SUMMARY | 2024-12-01 13:09 | XMS_ITS | Encounter Summary ---
Author Organization [facility] Address [address] [facility] [place] [address] Care Team Providers Care Sign Maintenance Name Role Phone Lucio Pandey DO Primary Care Provider Encounter Details Date Type Department Care Team (Late st Contact Info) Description 07/29/2019 Lab Requisition [facility] Care Pathology Lab [facility] [place] [address] Gale Reyes MD [address] [place] [address] Social History Tobacco Use Types Packs/Day Years [...] MARROW BIOPSY (STL) Routine 07/25/2019 8:00 AM KENNEL SUPERVISOR documented in this encounter Results * BONE MARROW BIOPSY (STL) (07/25/2019 8:00 AM KENNEL SUPERVISOR) Case Report Bone Marrow Patholog y Report Case: [id number] Authorizing Provider: Gale Reyes MD Collected: 07/25/2019 08:00 AM Ordering Location: [facility] Received: 07/29/2019 06:53 AM Pathologist: Lacey Domingo MD Specimens: A) - Bone Marrow Core, AB20-6 B) - Bone Marrow Clot, AB20-6 C) - Blood Peripheral, AB20-6 D) - Bone Marrow Aspirate, AB20-6 07/29/2019 12:[address] [facility] Final Diagnosis Bone marrow, aspirate, clot section, and core biopsy: - Hypercellular marrow with maturing trilineage hematopoiesis, mild megakaryocytic hyperplasia and dyserythropoiesis. - Rare ring sideroblasts identified. - No evidence of lymphoma or high-grade myeloid neoplasm. - See description. Peripheral blood smear: - Macrocytic anemia. - Thrombocytosis. - See description. 07/29/2019 12:[address] [facility] at [address] KENNEL SUPERVISOR AP Comment Overall, the bone marrow is hypercellular [...] studies is required. KR/MM 07/29/2019 12:[address] [facility] Peripheral Smear Description CBC Data: [...] increased. Platelet morphology: normal. 07/29/2019 12:[address] [facility] Bone Marrow Aspirate Differential count [...] Control is appropriately reactive. 07/29/2019 12:[address] [facility] Bone Marrow Core Biopsy and [...] (by special stain): adequate. 07/29/2019 12:[address] [facility] Flow Cytometry Summary Concurrent flow cytometry ([id number]) shows no evidence of non-Hodgkin lymphoma or high-grade myeloid neoplasm. 07/29/2019 12:[address] [facility] Clinical History Macrocytic anemia. 07/29/2019 12:[address] [facility] Materials Received Received are 21 slides and 3 blocks labeled as AB20-6 along with the outside pathology report. [place] [address]. All materials are returned to the referring institution, along with a copy of our final report. 07/29/2019 12:[address] [facility] Disclaimer The performance characteristics of all immunohistochemical and indirect immunofluorescence stains (if any) cited in this report were determined by the Histopathology Laboratory of [facility]. Some of these tests were developed by [...] the attending (teaching) pathologist. 07/29/2019 12:00 PM KENNEL SUPERVISOR [facility] Embedded Images 07/29/2019 12:[address] [facility] Pathology/Cytology SPECIMEN FROM BONE MARROW OBTAINED BY ASPIRATION / Unknown 07/25/2019 8:00 AM KENNEL SUPERVISOR 07/29/2019 6:53 AM KENNEL SUPERVISOR Miscellaneous samples (specimen) BONE MARROW CLOT SPECIMEN / Unknown 07/25/2019 8:00 AM KENNEL SUPERVISOR 07/29/2019 6:53 AM KENNEL SUPERVISOR Miscellaneous samples (specimen) PERIPHERAL BLOOD / Unknown 07/25/2019 8:00 AM KENNEL SUPERVISOR 07/29/2019 6:53 AM KENNEL SUPERVISOR Miscellaneous samples (specimen) SPECIMEN FROM BONE MARROW OBTAINED BY ASPIRATION / Unknown 07/25/2019 8:00 AM KENNEL SUPERVISOR 07/29/2019 6:53 AM KENNEL SUPERVISOR us Gale Reyes MD LAB - PATHOLOGY/CYTOLOGY ORDERAB LES Final Result [facility] [address] [phone] documented in this encounter Visit Diagnoses Not on filedocumented in this encounter Care Teams Sign Maintenance Relationship Specialty Start Date End Date Lucio Pandey DO PCP - General Internal Medicine 05/08/19 documented as of this encounter
--- OUTSIDE RECORDS SUMMARY | 2024-12-01 13:09 | XMS_ITS | Clinical Summary ---
Author Organization [facility] Address [address] [place] [address] Care Team Providers Care Occupational Health Manager Name Role Phone Lucio Pandey DO Primary Care Provider [phone] Source Comments [facility],non-owned Affiliates and Associated Physician Practices is amultiple site organization consisting of ambulatory clinics and hospital sitesin [place], [place], [place] and [place]. This disclosure is being madepursuant to the Care Everywhere program and may not contain all information available regarding this patient. Last updated 18.[facility] [place] Allergies Active Allergy Reactions Criticality Noted Date [...] 7:29 AM CDT Height 167.6 cm (5' 6) 09/11/2018 7:29 AM CDT Body Mass Index [...] age to complete this topic Insurance [facility] MEDICARE Care Teams Occupational Health Manager Relationship Specialty Start Date End Date Lucio Pandey DO PCP - General Internal Medicine 05/08/19
--- OUTSIDE RECORDS SUMMARY | 2024-12-01 13:09 | XMS_ITS | Encounter Summary ---
Author Organization [facility] Address [address] [address] Care Team Providers Care Electronics Processor Name Role Phone Lucio Pandey DO Primary Care Provider Encounter Details Date Type Department Care Team (Late st Contact Info) Description 07/25/2019 Lab Requisition [facility] Care Pathology Lab [address] [place] [address] Marcellus Gardner MD [address] [address] Social History Tobacco Use Types [...] CYTOMETRY BONE MARROW Routine 07/25/2019 10:23 AM NUTRITION INSTRUCTOR documented in this encounter Results * FLOW CYTOMETRY BONE MARROW (07/25/2019 10:23 AM NUTRITION INSTRUCTOR) Case Report Flow Cytometry Case: [id number] Authorizing Provider: Marcellus Gardner MD Collected: 07/25/2019 10:23 AM Ordering Location: [facility] Care Pathology Lab Received: 07/25/2019 01:46 PM Pathologist: Lacey Domingo MD Specimen: Bone Marrow 07/25/2019 4:22 PM [facility] Final Diagnosis Bone marrow, flow cytometric immunophenotypic analysis: - No evidence of non-Hodgkin lymphoma or high-grade myeloid neoplasm. - See interpretation. 07/25/2019 4:22 PM [facility] at 1622 NUTRITION INSTRUCTOR Flow Cytometry Interpretation The bone marrow specimen [...] the flow cytometry specimen is reviewed for quality control microbiology supervisor purposes. The bone marrow aspirate specimen shows no evidence of involvement by a non-Hodgkin lymphoma or a high-grade myeloid neoplasm. Correlation with clinical findings, the concurrent bone marrow core biopsy, and relevant cytogenetic/molecu lar studies is required. KR/MM 07/25/2019 4:22 PM [facility] Flow Cytometry Results Differential Result Comment Flow Cell Count /uL 49,800 Total Viability % 95.0 Lymphocytes % 26 Dim CD45 Region % 12 Monocytes % 13 Granulocytes % 37 07/25/2019 4:22 PM [facility] Reason for test Macrocytic anemia 07/25/2019 4:22 PM [facility] Client Specimen ID # [id number] 07/25/2019 4:22 PM [facility] Number of markers 10 were performed. A-2 Flow CD10 A-3 Flow CD13 A-5 Flow CD20 A-1 Flow CD5 A-4 Flow CD19 A-6 Flow CD33 A-7 Flow CD34 A-8 Flow CD45 A-9 [place]+CD19+ A-10 Lambda+CD19+ 07/25/2019 4:22 PM [facility] Disclaimer Test performed at [facility], [address] [place] [address], [address]. *The established laboratory minimum viability is 70%. [...] high complexity clinical testing. 07/25/2019 4:22 PM NUTRITION INSTRUCTOR [facility] Embedded Images 0 4:22 PM NUTRITION INSTRUCTOR [facility] Pathology/Cytolo gy BONE MARROW SPECIMEN / Unknown 07/25/2019 10:23 AM NUTRITION INSTRUCTOR 07/25/2019 1:46 PM NUTRITION INSTRUCTOR Marcellus Gardner MD LAB - PATHOLOGY/CYTOLOGY ORDER ERIK Final Result Performing Organization Address City/State/[facility] Co de Phone Number [facility] PATHOLOG[facility] [address] [phone] documented in this encounter Visit Diagnoses Not on filedocumented in this encounter Care Teams Electronics Processor Relationship Specialty Start Date End Date Lucio Pandey DO PCP - General Internal Medicine 05/08/19 documented as of this encounter
[2024-12-01 13:33] LABS: Percent Iron Saturation 12 % (20-50)
[2024-12-01 17:37] LABS: Folic Acid 8.8 ng/mL (2.76->20)
== END 2024-12-01 11:36 | disposition home or self-care (01) ==
LOC: ANHLAB 11:36
PROVIDERS: PCP Internal Medicine; Visit Provider Internal Medicine Hematology & Oncology
DX: D64.9 Anemia, unspecified (principal)
CPT/HCPCS: 36415; 80053; 82607; 82728; 82746; 83540; 83550; 85025

== ENCOUNTER 2025-04-06 12:36 | Outpatient (CLI) | payer MEDICARE, BC, SELFPAY ==
--- NOTE | ~2025-04-06 | XR_ITS ---
EXAMINATION: XR shoulder RT min 2V, 04/06/2025 12:45 CDT HISTORY: Pain in unspecified shoulder x 3 months, no inj, no surg COMPARISON: No comparisons available. Findings: No acute fracture or malalignment. Moderate degenerative changes Soft tissues unremarkable. Impression: No acute fracture or malalignment. Reviewed, dictated and finalized at location P. Impression: No acute fracture or malalignment.
== END 2025-04-06 12:37 | disposition home or self-care (01) ==
PROVIDERS: PCP Internal Medicine; Visit Provider Internal Medicine
DX: M25.511 Pain in right shoulder (principal); G89.29 Other chronic pain
CPT/HCPCS: 73030

== ENCOUNTER 2025-05-18 11:41 | Outpatient (CLI) | payer MEDICARE, BC, SELFPAY ==
--- NOTE | ~2025-05-18 | XR_ITS ---
EXAMINATION: XR hip BI 2V w AP pelvis, 05/18/2025 12:03 PROVIDER RELATIONS REP HISTORY: M25.551 - Pain in right hip COMPARISON: No comparisons available. Findings: Fixation of the left femur, the hardware appears intact. Moderate degenerative changes of the acetabular femoral joints Soft tissues unremarkable. Impression: No acute fracture or malalignment. Reviewed, dictated and finalized at location P. IDER RELATIONS REP Impression: No acute fracture or malalignment.
--- NOTE | ~2025-05-18 | XR_ITS ---
XR lumbar spine 6V w bending Indication: M47.816 - Spondylosis without myelopathy or radiculopathy... Comparison: None Findings: Levoconvex scoliosis. Moderate loss of vertebral height. No acute fracture. Grade 1 anterolisthesis of L4 on L5, grade 1 retrolisthesis of L2 on L3. Moderate to severe loss of disc height throughout, no subluxation flexion and extension. Soft tissues unremarkable Impression: No acute abnormality. Reviewed, dictated and finalized at location P. E MAKER Impression: No acute abnormality.
--- NOTE | ~2025-05-18 | XR_ITS ---
EXAMINATION: XR sacrum coccyx min 2V, 05/18/2025 12:03 NUCLEAR MEDICINE CHIEF TECHNOLOGIST HISTORY: M46.1 - Sacroiliitis, not elsewhere classified COMPARISON: No comparisons available. Findings: No acute fracture or malalignment. Sclerosis noted of the sacroiliac joints, there are no erosions, no bridging osteophyte formation. Soft tissues unremarkable. Impression: No acute fracture or malalignment. Reviewed, dictated and finalized at location P. EAR MEDICINE CHIEF TECHNOLOGIST Impression: No acute fracture or malalignment.
== END 2025-05-18 11:42 | disposition home or self-care (01) ==
PROVIDERS: PCP Nurse Practitioner Adult Health; Visit Provider Nurse Practitioner Adult Health
DX: M46.1 Sacroiliitis, not elsewhere classified (principal); M47.816 Spondylosis without myelopathy or radiculopathy, lumbar region; M25.551 Pain in right hip; M25.552 Pain in left hip
CPT/HCPCS: 72114; 72220; 73521

== ENCOUNTER 2025-05-26 03:15 | Day surgery (SDC) | payer MEDICARE, BC, SELFPAY ==
[2025-05-19 13:40] VITALS: BMI 30.6
--- NOTE | 2025-05-19 13:55 | PC.NURSE ---
[facility] has started construction of its new state of the art ER which will open Spring 2026. With this, we anticipate parking may be a challenge for some our surgical patients and families. Parking spaces are limited but are available for all Surgical, obstetrics, and ER patients sharing this lot. If you arrive and find you are having a hard time finding a parking space, please note that we understand the challenges, please drive around the hospital and park near Hospital Entrance 1. When you enter this entrance, you can ask a volunteer to direct or take you back to the surgical waiting area to check in. We appreciate everyone?s understanding of these expected challenges while we build for your future. Report to the Outpatient Waiting Room, entrance under the green pavilion located off [address], at time ___10:00am____ on date __05/26/25 . Planned Procedure Time: __11:00am .? Time changes happen often and if your time is changed the preop area will call you the afternoon before. - You and your visitor will be asked to self-screen and do not enter if you have any COVID symptoms. Please call surgeon if you need to reschedule. - A mask is optional within the hospital at this time. Patients may have Light breakfast & Drink until 0900am, then just sip of water prior to surgery if needed w meds. No smoking, or chewing tobacco (or any form of nicotine). No chewing gum, candy or mints am of surgery. Take only the following medications with a SIP of water on the morning of surgery: All meds ( except those listed below) DO NOT STOP ANY OF YOUR OTHER PRESCRIPTION MEDICATIONS PRIOR TO SURGERY EXCEPT THE FOLLOWING Medications to discontinue per physician HOLD ALL_Aspirin or Ibuprofen/NSAIDS for [address] FERNANDEZ Date to take last dose 05/18/25 Please no make-up, nail greenlandic, hairspray, perfume, deodorant, or body powder the day of surgery.? No jewelry (including any body piercings) or valuables the day of surgery, leave them at home.? Please take a shower or bath the night before, or the morning of, surgery with an antibacterial soap.? Wear comfortable, loose fitting clothing.? Dial Soap - Jewelry must be removed prior to entering the operating room.? Rings and piercings that are not removed may be cut off. - The hospital will not accept responsibility for valuables.? - Please leave all valuables, including medications, at home the day of surgery. If you are going home after surgery, a licensed otr flatbed company truck driver must drive you home.? - NO public transportation without another adult if you receive anesthesia. - We recommend that an adult stay with you for 24 hours following discharge. - We also recommend that you do not drive, make important decision, drink alcoholic beverages, or take any drugs that were not prescribed by your health care provider for at least 24 hours after your discharge time. Dr FERNANDEZ orders no driving for 24 hours, pt aware. Follow any additional instructions given to you from your surgeon. Telephone instructions given to ___Patient and asked if any additional questions and then verbalized understanding. Patient advised to call surgeon office or pre surgery nurse liaison [phone] if any additional questions.
--- NOTE | ~2025-05-26 | XR_ITS ---
EXAMINATION: XR fluoroscopy no charge DATE: 05/26/2025 10:04 INDICATION: Left sacroiliac joint intra-articular steroid injection TECHNIQUE: 3 fluoroscopic images of the left sacroiliac joint were obtained during pain management procedure performed by Dr. Kinney. Radiologist was not present for the imaging or procedure. The amount of fluoroscopy time used during this procedure was 0.9 minutes. Total DAP was 5.69 Gycm^2. COMPARISON: 05/18/2025 FINDINGS: Images demonstrate needle tip projecting over the left sacroiliac joint with contrast extending anteroinferiorly from the needle tip presumably within the sacroiliac joint. IMPRESSION: 1. Fluoroscopy utilized during left sacroiliac joint injection. See procedure note for further detail. Reviewed, dictated and finalized at location A. RETE TILE MACHINE OPERATOR IMPRESSION: 1. Fluoroscopy utilized during left sacroiliac joint injection. See procedure n ote for further detail.
--- OUTSIDE RECORDS SUMMARY | 2025-05-26 03:19 | XMS_ITS | Encounter Summary ---
Author Organization [facility] Address [address] [place] [address] Care Team Providers Care Phlebotomy Coordinator Name Role Phone Lucio Pandey DO Primary Care Provider [phone] Encounter Details Date Type Department Care Team (Late Contact Info) Description 07/06/2020 Abstract [facility], [facility] [address] [place] [address] Darren Jacinto MA Social History Tobacco Use Types Packs/Day Years Used Date Smoking Tobacco: Never Smokeless Tobacco: Never Alcohol Use Standard Drinks/Week Comments Yes 0 (1 standard drink = 0.6 oz pure alcohol) Drinks [facility] whiskey everyday Comments No Sex and Gender [...] COVID-19? No / Unsure 07/05/2020 1:24 PM SOCIAL WORKER MASTERS documented as of this encounter Plan of Treatment Upcoming Encounters Date Type Department Care Team (Late Contact Info) Description 09/22/2025 11:00 AM CDT Office Visit [facility], [address] [place] [address] Jurgen Ochoa MD [facility] [address] [place] [address] documented as of this encounter Procedures Procedure [...] VITAMIN B-12 (05/28/2020) VITAMIN B12 S/P/B 962 119 [phone] 609 05/28/2020 us Doc [facility] Abstract LABORATORY Final [...] on filedocumented in this encounter Care Teams Phlebotomy Coordinator Relationship Specialty Start Date End Date Lucio Pandey DO [address] [facility] [address] [place] [address] PCP - General INTERNAL MEDICINE 12/06/19 documented as of this encounter
--- OUTSIDE RECORDS SUMMARY | 2025-05-26 03:19 | XMS_ITS | Encounter Summary ---
Author Organization [facility] Address [address] [facility] [place] [address] Care Team Providers Care Third Helper Name Role Phone Lucio Pandey DO Primary Care Provider Encounter Details Date Type Department Care Team (Late st Contact Info) Description 07/25/2019 Lab Requisition [facility] Care Pathology Lab [address] [place] [address] Marcellus Gardner MD [address] [address] Social History Tobacco Use Types [...] CYTOMETRY BONE MARROW Routine 07/25/2019 10:23 AM RIG SUPERINTENDENT documented in this encounter Results * FLOW CYTOMETRY BONE MARROW (07/25/2019 10:23 AM RIG SUPERINTENDENT) Case Report Flow Cytometry Case: [id number] Authorizing Provider: Marcellus Gardner MD Collected: 07/25/2019 10:23 AM Ordering Location: [facility] Care Pathology Lab Received: 07/25/2019 01:46 PM Pathologist: Lacey Domingo MD Specimen: Bone Marrow 07/25/2019 4:22 PM [facility] PATH[facility] Final Diagnosis Bone marrow, flow cytometric immunophenotypic analysis: - No evidence of non-Hodgkin lymphoma or high-grade myeloid neoplasm. - See interpretation. 07/25/2019 4:22 PM [facility] at [address] RIG SUPERINTENDENT Flow Cytometry Interpretation The bone marrow specimen [...] cytometry specimen is reviewed for software quality assurance analyst purposes. The bone marrow aspirate specimen shows no evidence of involvement by a non-Hodgkin lymphoma or a high-grade myeloid neoplasm. Correlation with clinical findings, the concurrent bone marrow core biopsy, and relevant cytogenetic/molecu lar studies is required. KR/MM 07/25/2019 4:22 PM [facility] Flow Cytometry Results Differential Result Comment Flow Cell Count /uL 49,800 Total Viability % 95.0 Lymphocytes % 26 Dim CD45 Region % 12 Monocytes % 13 Granulocytes % 37 07/25/2019 4:22 PM [facility] Reason for test Macrocytic anemia 07/25/2019 4:22 PM [facility] Client Specimen ID # [id number] 07/25/2019 4:22 PM [facility] Number of markers 10 were performed. A-2 Flow CD10 A-3 Flow CD13 A-5 Flow CD20 A-1 Flow CD5 A-4 Flow CD19 A-6 Flow CD33 A-7 Flow CD34 A-8 Flow CD45 A-9 [place]+CD19+ A-10 Lambda+CD19+ 07/25/2019 4:22 PM [facility] Disclaimer Test performed at [facility], [address] [place] [address], [address]. *The established laboratory minimum viability is 70%. [...] high complexity clinical testing. 07/25/2019 4:22 PM RIG SUPERINTENDENT [facility] Embedded Images 0 4:22 PM RIG SUPERINTENDENT [facility] Pathology/Cytolo gy BONE MARROW SPECIMEN / Unknown 07/25/2019 10:23 AM RIG SUPERINTENDENT 07/25/2019 1:46 PM RIG SUPERINTENDENT Marcellus Gardner MD LAB - PATHOLOGY/CYTOLOGY ORDER ERIK Final Result Performing Organization Address City/State/[facility] Co de Phone Number [facility] [address] [phone] documented in this encounter Visit Diagnoses Not on filedocumented in this encounter Care Teams Third Helper Relationship Specialty Start Date End Date Lucio Pandey DO PCP - General Internal Medicine 05/08/19 documented as of this encounter
--- OUTSIDE RECORDS SUMMARY | 2025-05-26 03:19 | XMS_ITS | Clinical Summary ---
Author Organization [facility] Address [address] [place] [address] Care Team Providers Care Motor Coach Chauffeur Name Role Phone Lucio Pandey DO Primary [...] mouth every 6 hours as needed. Active aspirin (ECOTRIN EC) 81 mg Tablet, [...] 10 mg by mouth daily. 03/08/2024 Active [id number] HXLDA-S-F1-MIN ORAL Take by mouth. Active Active Problems Problem Noted Date Diagnosed Date Other dietary vitamin B12 deficiency anemia 09/24 Myelodysplastic syndrome, low grade 09/09/2019 Iron deficiency anemia 10/22/2018 Encounters Date Type Department Care Team Description 04/15/2025 External Device Data STL ABSTRACTION Provider, Abstract 04/14/2025 External Device Data ST[facility] ABSTRACTION Provider, Abstract 03/17/2025 External Device Data ST[facility] ABSTRACTION Provider, Abstract 03/10/2025 External Device Data ST[facility] ABSTRACTION Provider, Abstract 03/03/2025 External Device Data STL ABSTRACTION Provider, Abstract [...] Sign Reading Time Taken Comments Blood Pressure 131/78 12/03/2024 1:56 PM CDT Pulse 82 12/03/2024 1:56 PM CDT Temperature 37 C (98.6 F) 12/03/2024 1:56 PM CDT Respiratory Rate 15 12/03/2024 1:56 PM CDT Oxygen Saturation 95% 12/03/2024 1:56 PM CDT Inhaled Oxygen Concentration - - Weight 77.3 kg (170 lb 6.4 oz) 12/03/2024 1:56 P M CDT Height 167.6 cm (5' 6) 03/14/2021 1:56 PM CDT Body Mass Index 27.5 03/14/2021 1:56 PM CDT Plan of Treatment Upcoming Encounters Date Type Department Care Team (Late st Contact Info) Description 06/11/2025 11:00 AM PATIENT ADMITTING CLERK Office Visit [facility] On[facility] H[facility]ology - [facility] [address] [facility] [address] [place] [address] Cullen Narvaez MD [address] [facility] [address] [place] [address] Health Maintenance Due Date Last Done Comments Pre-Diabetes and Diabetes Screening 1955 DTAP/TDAP/TD VACCINES (1 - Tdap) 1973 FIT-DNA Q 3 years 12/07/1999 Flex Sig/CT Colonography Q 5 years 12/07/1999 FIT/FOBT Q 1 year 01/29/2020 01/28/2019 BREAST CANCER SCREENING 01/23/2024 01/23/20, 01/22/2023, 04/19/2021, Additional history exists INFLUENZA VACCINE (#1) 2025 04/16/2020 OSTEOPOROSIS SCREENING 08/04/2027 , 08/04/2022, 05/26/2021, Additional history exists RSV VACCINE [...] BLUE PPO MEDICARE PART A AND B [facility] BLUE ACCESS/TRUE BLUE PPO MEDICARE PART A AND B Care Teams Motor Coach Chauffeur Relationship Specialty Start Date End Date Lucio Pandey DO [address] [address] PCP - General Internal Medicine 10/14/18
--- OUTSIDE RECORDS SUMMARY | 2025-05-26 03:19 | XMS_ITS | Clinical Summary ---
Author Organization [facility] Address [address] [facility] [place] [address] Care Team Providers Care Cream Separator Operator Name Role Phone Lucio Pandey DO Primary Care Provider Source Comments [facility],non-owned Affiliates and Associated Physician Practices is amultiple site organization consisting of ambulatory clinics and hospital sitesin [place], [place], [place] and [place]. This disclosure is being madepursuant to the Care Everywhere program and may not contain all information available regarding this patient. Last updated 18.[facility] [employer] Allergies Active Allergy Reactions Criticality Noted Date [...] C-Mn (GLUCOSAMINE CHONDR 1500 COMPLX PO) Active Encounters Date Type Department Care Team Description 04/20/2025 11:30 AM CDT Procedure visit [facility] - GI [address] [place] [address] Maxi Blake MD Alcoholic fatty liver 04/20/2025 Travel 04/10/2025 Travel from Last 3 Months Social History Tobacco Use Types Packs/Day Years [...] DENSITY TESTING 1955 COLOGUARD (AGES 45-75) - COLON CA SCREENING 1955 CT COLONOGRAPHY - COLON CA SCREENING 1955 FIT - COLON CA SCREENING 1955 FLEX SIG - COLON CA SCREENING 1955 MAMMOGRAM 1955 MEDICARE AWV 12 MONTHS 1955 HEPATITIS C SCREENING 12/01/1972 DTAP/TDAP/TD VACCINES (1 - Tdap) 1973 PNEUMOCOCCAL VACCINE 50+ (1 of 1 - PCV) 2004 ZOSTER VACCINE (1 of 2) 2004 DEPRESSION SCREENING 06/25/2024 COVID-19 VACCINE (5 - 2024- season) 2025 07/13/2022, 04/21/2021, 09/16/2020, Additional history exists INFLUENZA VACCINE (#1) 2025 05/05/2022, 2019 Respiratory Syncytial Virus (RSV) Vaccine Pt: or over 60 yrs (1 - 1-dose 75+ series) 2029 COLON MONITORING 12/11/2032 12/11/2022 COLONOSCOPY - COLON CA SCREENING 12/11/2032 12/11/2022 Colorectal Cancer Screening 12/11/2032 HEPATITIS B VACCINE Aged Out No longe r eligible based on patient's age to complete this topic HIB VACCINE Aged Out No longer eligi ble based on patient's age to complete this topic HPV VACCINE Aged Out No longer eligi ble based on patient's age to complete this topic MENINGOCOCCAL (Group B) VACCINE SHARED DECISION-MAKING Aged Out No longer eligible based on patient's age to complete this topic MENINGOCOCCAL GROUPS A/C/Y/W VACCINE Aged Out No longer eligible based on patient's age to complete this topic Procedures Procedure Name Priority Date/Time Associated Diagnosis Comments [place] LIVER ELASTOGRAPHY Routine 04/20/2025 12:40 PM CDT Alcoholic fatty liver from Last 3 Months Results * WI LIVER ELASTOGRAPHY (04/20/2025 12:40 PM CDT) Narrative Maxi Linda MD - 04/20/2025 12:40 PM CDT Maxi Linda MD 04/24/2025 4:00 PM Diagnosis: Alcoholic Fatty Liver RN verified patient NPO for prior 3 hours. Procedure explained. Date of Exam: 04/20/2025 Liver Stiffness: (LSM, kPa) median: 5.0 IQR/Median% (ideally < 30%): 15% CAP (controlled attenuation parameter): 209 Technical Difficulty: None Ordering Provider: Dr. Pandey Fibroscan interpretation: I have personally reviewed the Fibroscan report and associated tracings. The calculated Liver Stiffness Measurement (LSM, kPa) indicates that: The probability of advanced liver fibrosis is: low. The loss of ultrasound signal, (controlled attenuation parameter, CAP [dB/m]), indicates that the probability of hepatic steatosis is: low. Maxi Wu MD The following criteria are used to indicate the probability of advanced (stage 3-4) fibrosis: < 7.0 kPa: low 7.0-8.9 kPa: low to moderate 9.0-14.9 kPa: moderate 15-20 kPa: high > 20 kPa: very high Liver stiffness > 12 kPa is associated with an increased risk of cirrhosis-related complications over the next 3-5 years (Boursier, 2022). Liver stiffness > 20 kPa is also associated with a high probability of complications of portal hypertension including varices and ascites. Liver stiffness > 50 kPa is associated with a high risk of variceal bleeding. These interpretations are based on the following published data: Kay J, Xavierr m H, Ekwilt M, Yoseph C, Bonaankiti M, Cure S, Ampuero J, Nasr P, Tallab L, Canivet CM, Keorlando S, S nchez Y, Dincuashely E, Madison A, Owen M, Elizabeth J, Jose A and Garcia-Rueda M. Non-invasive tests accurately stratify patients with NAFLD based on their risk of liver-related events. J Hepatol (2021) 76: 0103-0010. Maricruz PJ, Brian M, Cecily M, et al. Accuracy of FibroScan controlled attenuation parameter and liver stiffness measurement in assessing steatosis and fibrosis in patients with nonalcoholic fatty liver disease. Gastroenterology 2019;156:5995-0239. Theodora PUENTES, Nancy R, Van Natta ML, et al. Vibration-controlled transient elastography to assess fibrosis and steatosis in patients with nonalcoholic fatty liver disease. Clin Gastroenterol Hepatol 2019;17:156-163. Note that scores have been developed that incorporate the Fibroscan liver stiffness measurement from large cohorts of patients with liver biopsies to further refine the ability of Fibroscan to identify patients with MASH and advanced fibrosis. These include the FAST (Fibroscan-AST) score (Mary, 202) and the Agile3+ and Agile4 scores (Ling, 2022; Ebony, 202). Mary TA, Van Natta ML, Keri M, Ameya A, et al. Validation of the accuracy of the FAST score for detecting patients with at-risk nonalcoholic steatohepatitis (LOTT) in a [place] cohort and comparison to other non-invasive algorithms. PLoS ONE (2021) 17: j0056496. Ling NICHOLAS, Justine Linda, Chapin JOHNSON, et al. Enhanced diagnosis of advanced fibrosis and cirrhosis in individuals with NAFLD using FibroScan-based Agile scores. J Hepatol (2022) 78: 247-259. Ebony et al. Vibration-controlled transient elastography scores to predict liver-related events in steatotic liver disease. BARRY (2023) 331: 4695-3796 Fibroscan LSM can also be used with laboratory parameters without formulas to assess prognosis. According to the Baveno-VII criteria (Topete, 202), Fibroscan LSM <=15 kPa plus a platelet count of >=660z079/L rules out clinically significant portal hypertension (sensitivity and negative predictive value >90%) in patients with compensated advanced chronic liver disease. Topete R, Esteban J, Zahra G, Colby T, Leydi Izaguirre on behalf of the Baveno VII Faculty. Baveno VII--Renewing consensus in portal hypertension. J Hepatol (2021) 76: 959-974 Assessing the likelihood of advanced fibrosis in patients with intermediate liver stiffness measurement (LSM) by Fibroscan (e.g., 8-15 kPa) can be improved by also calculating the FIB-4 score (Vaibhav et al. Hepatology Communications 2019;3:6323-4515) or NAFLD Fibrosis score (Connors et al. Clinical Gastroenterology and Hepatology 2019;17:7302-6079 using routine clinical data. Notes: 1. Fibroscan cannot reliably identify earlier stages of fibrosis (ie distinguish F0 from F1 and F2) and thus a histologic stage cannot be predicted from the Fibroscan reading. 2. Liver stiffness can be increased by factors other than fibrosis including passive congestion, infiltrative processes, active alcoholism, recent moderate alcohol consumption in the 2 weeks before the exam, biliary obstruction and marked inflammation. The interpretation of the Fibroscan result provided above may not have taken such clinical factors into account. 3. Identifying steatosis by an elevated CAP score (> 250 db/m) is useful for establishing a diagnosis of steatotic liver disease. However the severity of steatosis does not correlate with liver related outcomes. Disease etiology also influences Fibroscan cutoff values for fibrosis stages and the following cutoffs have been proposed (Sheldon et al, Clin Gastro Hepatol 2015; 13:27-36): Cutoffs for Stage 3 and Stage 4 fibrosis respectively: Hepatitis B: >9 and >11.7 kPa Hepatitis C: >9.5 and >12.5 kPa HCV-HIV: >11 and >14 kPa Cholestatic liver diseases: >10 and >17.9 kPa MASLD/MASH: >10 and >14 kPa CAP estimates of steatosis: normal <200 dB/m mild 200 to 250 dB/m moderate 250-290 dB/m substantial > 290 dB/m (Note that Fibroscan is not a quantitative measure of liver fat.) These criteria are estimates and may change as additional supporting data becomes available. (This additional interpretive data was last updated 06/27/24.) [email or web address] Maxi Linda MD PROCEDURE/MINOR TODD RGICAL ORDERABLES Final Result from Last 3 Months Insurance ANTHEM ANTHEM Member Subscriber Plan / Payer (Ef fective 2009-Present) Name:Stanislavkarmalissa Marie Relation to Subscriber:Spouse Name:TALIB ACEVEDO Date of :1955 (Home) Address: [address] [place] [address] Payer ID:[id number] (NAIC) Type:PPO Address: [address] [place] [id number] MEDICARE Care Teams Cream Separator Operator Relationship Specialty Start Date End Date Lucio Pandey DO PCP - General Internal Medicine 05/08/19
--- OUTSIDE RECORDS SUMMARY | 2025-05-26 03:19 | XMS_ITS | Clinical Summary ---
Author Organization [facility] Address [facility] [place] [address] Care Team Providers Care Senior Technical Program Manager Name Role Phone Lucio Pandey DO Primary Care Provider [phone] Allergies No known active allergies Medications ferrous sulfate, 65 mg elemental, 325 (65 FE) MG tablet Take 1 tablet (325 mg total) by mouth daily with breakfast. Active zinc gluconate 50 MG Tab Take 1 tablet (50 mg total) by mouth daily. Active Multiple Vitamins-Minera ls (SM ONE DAILY WOMENS) Tab Take 1 tablet by mouth daily. Active Ascorbic Acid (VITAMIN C) 500 MG Cap Take 500 mg by mouth nightly at bedtime. 09/26/2021 Active calcium carbonate (OS-DEWAYNE) 600 MG tablet Take 1 tablet (600 mg total) by mouth every evening. Active vitamin D3, cholecalciferol , (CHOLECALCIFERO L) 125 mcg capsule Take 1 capsule (5,000 Units total) by mouth daily. Active traMADol (ULTRAM) 50 MG tablet Take 1 tablet (50 mg total) by mouth every 8 (eight) hours as needed. 09/07/2023 Active tiZANidine HCl 2 MG Cap 09/07/2023 Active simvastatin (ZOCOR) 10 MG tablet Take 1 tablet (10 mg total) by mouth daily. 03/08/2024 Active ASPIRIN LOW DOSE 81 MG tablet TAKE 1 TABLET DAILY 90 tablet 3 10/10/2024 Active Active Problems Problem Noted Date Diagnosed Date Anemia 12/08/2022 Atrial fibrillation with RVR 09/08/2022 Presence of Watchman left atrial appendage closu re device 08/22/2022 Osteoporosis 08/04/2022 Persistent atrial fibrillation 12/12/2019 Assessment & Plan (01/03/2021 2:03 PM [...] length and ablation as means for her senior care rhythm management. I will have her referred to a partner for general cardiovascular followup as well. We will plan to see her back in six months to reassess her AF burden and mangement plan. We will obtain a TTE to assess her LV function and assess for valvular lesions. Immunizations Immunization Administration Dates Next Due Fluzone [...] drink = 0.6 oz pure alcohol) Drinks [facility] [employer] everyday Humiliation, Afraid, Rape, and Kick questionnair [...] 10:48 AM CDT Height 165.1 cm (5' 5) 09/19/2024 10:48 AM CDT Body Mass Index 29.79 09/19/2024 10:48 AM CDT Plan of Treatment Upcoming Encounters Date Type Department Care Team (Late st Contact Info) Description 09/22/2025 11:00 AM CDT Office Visit [facility], [address] [place], [place] [id number] Jurgen Ochoa MD [address] [facility] [address] [place], [place] [id number] Health Maintenance Due Date Last Done Comments Hepatitis C 1973 DTaP, Tdap and Td Vaccines ( 1 - Tdap) 1973 Mammogram Screening 10/02/2015 10/01/2013, 07/17/2012 Annual Medicare Wellness Visit 12/07/2019 COVID-19 Vaccine (4 - 2024-2 6 season) 2025 04/21/2021, 09/16/2020, 08/26/2020 Influenza Adult (#1) 2025 04/16/2020 RSV Immunization or 60+ Years (1 - 1-dose 75+ series) 2029 Colorectal Cancer Screening Colonoscopy (10 Years) 12/11/2032 12/11/2022, 12/11/2022 Zoster Vaccines Completed 07/06/2020, 04/26/2020 Pneumococcal Vaccine: 50+ Years Completed 09/01/2021, 04/26/2020, 04/13/2020 Colorectal Cancer Screening FIT/FOBT (1 Year) Discontinued 12/10/2022, 01/28/2019 Dexa Scan (General) Completed 10/05/2023, 08/04/2022, 08/04/2022 Hepatitis A Vaccines Aged Out No long er eligible based on patient's age to complete this topic Meningococcal B Vaccine Aged Out No l [...] perform ADLs independently Lifestyle No Blair Benjamin, regulatory leader - family caregiver with be involved in care transitions and discharge planning Lifestyle No Hayde Lobo, SPEECH CORRECTION CONSULTANTseo manager Devices Implanted Type Area Herb Counselor Device Identifier Shelf Expiration Date Model / Serial / Lot Closure Device- [id number] Implanted:Qty : 1 on 08/22/2022 by Jose Manuel Quintero MD Closure Device Left: [employer] 05/09/2025 [id number] / / [id number] Alfredo Left Femur-[place] 4 Screws Procedures Procedure Name Priority Date/Time Associated Diagnosis Comments COLONOSCOPY Routine 12/11/2022 7:09 AM CDT OCCULT BLOOD, FECES STAT 12/10/2022 1 :06 PM CDT from Last 3 Months or Most Recently Relevant to Health Maintenance Results * OCCULT BLOOD, FECES (12/10/2022 1:06 PM CDT) OCCULT BLOOD FECAL POSITIVE 12/10/2022 1:40 PM CDT [facility] STOOL SPECIMEN / Unknown 12/10/2022 1:06 PM CDT Sabino SEQUEIRA BODY FLUIDS AND STOOLS VIANCA CARRILLO Final Result [facility] [address] [place] [address], from Last 3 Months or Most Recently Relevant to Health Maintenance Insurance MEDICARE [facility] MEDICARE [facility] Advance Directives * Full Code (Latest Code Status on File) Date Activated Date Inactivated Comments 12/08/2022 4:30 PM 12/11/2022 8:56 PM * Full Code Date Activated Date Inactivated Comments 09/08/2022 4:10 PM 09/09/2022 5:54 PM Care Teams Senior Technical Program Manager Relationship Specialty Start Date End Date Lucio Pandey DO [address] [place] [address] PCP - General INTERNAL MEDICINE 12/06/19
--- OUTSIDE RECORDS SUMMARY | 2025-05-26 03:19 | XMS_ITS | Encounter Summary ---
Author Organization [facility] Address [address] [place] [address] Care Team Providers Care Photographic Reproduction Technician Name Role Phone Lucio Pandey DO Primary Care Provider Encounter Details Date Type Department Care Team (Late st Contact Info) Description 07/29/2019 Lab Requisition [facility] Care Pathology Lab [facility] [place] [address] Gale Reyes MD [address] [place] [address] Social History Tobacco Use Types Packs/Day Years [...] MARROW BIOPSY (STL) Routine 07/25/2019 8:00 AM ADJUNCT MATHEMATICS INSTRUCTOR documented in this encounter Results * BONE MARROW BIOPSY (STL) (07/25/2019 8:00 AM ADJUNCT MATHEMATICS INSTRUCTOR) Case Report Bone Marrow Patholog y Report Case: [id number] Authorizing Provider: Gale Reyes MD Collected: 07/25/2019 08:00 AM Ordering Location: [facility] Received: 07/29/2019 06:53 AM Pathologist: Lacey Domingo MD Specimens: A) - Bone Marrow Core, AB20-6 B) - Bone Marrow Clot, AB20-6 C) - Blood Peripheral, AB20-6 D) - Bone Marrow Aspirate, AB20-6 07/29/2019 12:00 PM [facility] Final Diagnosis Bone marrow, aspirate, clot section, and core biopsy: - Hypercellular marrow with maturing trilineage hematopoiesis, mild megakaryocytic hyperplasia and dyserythropoiesis. - Rare ring sideroblasts identified. - No evidence of lymphoma or high-grade myeloid neoplasm. - See description. Peripheral blood smear: - Macrocytic anemia. - Thrombocytosis. - See description. 07/29/2019 12:00 PM [facility] at 1200 ADJUNCT MATHEMATICS INSTRUCTOR AP Comment Overall, the bone marrow is [...] studies is required. KR/MM 07/29/2019 12:00 PM [facility] Peripheral Smear Description [...] increased. Platelet morphology: normal. 07/29/2019 12:00 PM [facility] Bone Marrow Aspirate [...] Control is appropriately reactive. 07/29/2019 12:00 PM [facility] Bone Marrow Core [...] (by special stain): adequate. 07/29/2019 12:00 PM [facility] Flow Cytometry Summary Concurrent flow cytometry ([id number]) shows no evidence of non-Hodgkin lymphoma or high-grade myeloid neoplasm. 07/29/2019 12:00 PM [facility] Clinical History Macrocytic anemia. 07/29/2019 12:00 PM [facility] Materials Received Received are 21 slides and 3 blocks labeled as AB20-6 along with the outside pathology report. [place] [address]. All materials are returned to the referring institution, along with a copy of our final report. 07/29/2019 12:00 PM [facility] Disclaimer The performance characteristics of all immunohistochemical and indirect immunofluorescence stains (if any) cited in this report were determined by the Histopathology Laboratory of [facility]. Some of these tests were developed [...] the attending (teaching) pathologist. 07/29/2019 12:00 PM ADJUNCT MATHEMATICS INSTRUCTOR [facility] PATHOLOG[facility] Embedded Images 07/29/2019 12:00 PM [facility] Pathology/Cytology SPECIMEN FROM BONE MARROW OBTAINED BY ASPIRATION / Unknown 07/25/2019 8:00 AM ADJUNCT MATHEMATICS INSTRUCTOR 07/29/2019 6:53 AM ADJUNCT MATHEMATICS INSTRUCTOR Miscellaneous samples (specimen) BONE MARROW CLOT SPECIMEN / Unknown 07/25/2019 8:00 AM ADJUNCT MATHEMATICS INSTRUCTOR 07/29/2019 6:53 AM ADJUNCT MATHEMATICS INSTRUCTOR Miscellaneous samples (specimen) PERIPHERAL BLOOD / Unknown 07/25/2019 8:00 AM ADJUNCT MATHEMATICS INSTRUCTOR 07/29/2019 6:53 AM ADJUNCT MATHEMATICS INSTRUCTOR Miscellaneous samples (specimen) SPECIMEN FROM BONE MARROW OBTAINED BY ASPIRATION / Unknown 07/25/2019 8:00 AM ADJUNCT MATHEMATICS INSTRUCTOR 07/29/2019 6:53 AM ADJUNCT MATHEMATICS INSTRUCTOR us Gale Reyes MD LAB - PATHOLOGY/CYTOLOGY ORDERAB LES Final Result [facility] [address] [phone] documented in this encounter Visit Diagnoses Not on filedocumented in this encounter Care Teams Photographic Reproduction Technician Relationship Specialty Start Date End Date Lucio Pandey DO PCP - General Internal Medicine 05/08/19 documented as of this encounter
--- NOTE | 2025-05-26 06:16 | P.OP_ITS ---
Procedure Note - Detailed Date of Procedure 05/26/25 Pre-op Diagnosis sacroiliitis Post-op Diagnosis Same Procedure Performed Left Sacroiliac Joint Steroid Injection under Fluoroscopic Guidance and with Contrast Control. Surgeon Trevor Kinney MD Manager Water Wastewater None Anesthesia Local Description of Procedure INFORMED CONSENT: Risks, benefits and alternatives to the procedure were discussed in detail with the patient who expressed explicit understanding and consent to proceed. Patient was informed verbally and in written form regarding the risks associated with the procedure including the low risk of serious infection, bleeding/bruising, allergic reaction, nerve or organ injury, paralysis, procedural site pain or discomfort, worsening pain and/or mobility, failure to treat and/or disfigurement. The patient expressed explicit understanding and consent to proceed. All materials required for the procedure were available prior to procedure start. Site and side were marked prior to procedure and confirmed in the presence of the patient. PROCEDURE IN DETAIL: The patient was brought to the procedural suite and placed in the prone position. Patient was made comfortable with use of pillows under the head/chest, hips and ankles. Skin overlying the injection site on the affected side(s) was prepared broadly with ChloraPrep applicator and draped in a sterile manner. Aseptic technique was used throughout. The left SI joint was identified in the AP view and contralateral oblique angulation with caudal tilt was utilized to optimize visualization of the inferior and medial joint line representing the posterior portion of the joint. Local anesthesia was established by infiltration with approximately 5 mL of 2% lidocaine via a 1-1/2 inch 27-gauge needle. A 22-gauge 3.5 inch Quincke spinal needle was advanced until the needle entered the inferior third of the joint space approximately 1cm cephalad from its most inferior point. In the AP view, 0.5 mL of Omnipaque 300 contrast medium was injected after negative aspiration for CSF, blood or other bodily fluid, showing appropriate intra-articular spread of contrast without evidence of intravascular, perineural or intrathecal placement. A 1.5 mL solution containing 10 mg of dexamethasone in 0.5% PF bupivacaine was injected after repeat negative aspiration. Appropriate spread of the injectate was confirmed with washout of previous injected contrast. No parasthesias were elicited. Needle was removed completely intact without difficulty. Images were saved and documented in the patient chart. Patient's skin was cleansed and sterile bandage applied. The patient tolerated the procedure well. The patient was transported to the recovery area in stable condition where they were observed for an appropriate amount of time prior to discharge, without evidence of complication. The patient was instructed to avoid excessive activity for the next 48 hours, including climbing and frequent use of stairs. Showers only for 48 hours. They were instructed not to drive or operate heavy machinery for 24 hours. They are to monitor for severe headaches, fevers, chills, night sweats, erythema/swelling at the site or any other signs of infection, bleeding/bruising, bowel or bladder changes as well as new pain, weakness or numbness in the upper or lower extremity. Should they notice these changes, they are instructed to call our office immediately or report directly to the nearest Emergency Department if no answer or if after posted office hours. COMPLICATIONS: None COMMENTS: None CONTRAST WASTED: 29.5 mL Omnipaque 300. Complications No immediate complications Condition Stable Disposition Same day [facility] Billing Surgery - Charge Forward: Surgery Billing
--- NOTE | 2025-05-26 06:16 | WPDHPUPDATE1 ---
History and Physical Update Update Date/Time: 05/26/25 06:16 History and Physical has been reviewed, including an updated exam of the patient. There are NO changes in the patient's condition. Risks, benefits, and alternatives have been discussed and questions answered. Patient agrees to proceed with procedure.
[2025-05-26 09:00] VITALS: BP 109/76; PULSE 58; RESP 20; TEMP 36.7; O2SAT 98
[2025-05-26 09:23] VITALS: BP 144/73; PULSE 55; RESP 16; O2SAT 99
[2025-05-26] MEDS: dexAMETHasone SOD PHOS INJ 10 MG/ML 1 ML VIAL IM (09:25)
[2025-05-26 09:33] VITALS: BP 121/71; PULSE 60; RESP 16; O2SAT 99
[2025-05-26 09:37] VITALS: BP 130/57; PULSE 63; RESP 16; O2SAT 100
== END 2025-05-26 09:50 | disposition home or self-care (01) ==
PROVIDERS: PCP Internal Medicine; Referring Provider Nurse Practitioner Adult Health; Visit Provider Anesthesiology Pain Medicine
PROC: (CPT G0260; principal; 2025-05-26 09:30)
DX: M46.1 Sacroiliitis, not elsewhere classified (principal)
CPT/HCPCS: G0260; 99199; J1100; Q9965

== ENCOUNTER 2025-05-27 10:08 | Outpatient (CLI) | payer MEDICARE, BC, SELFPAY ==
--- OUTSIDE RECORDS SUMMARY | 2025-02-02 04:10 | XMS_ITS ---
Author Organization [facility] Address [address] [place], [place] [id number] Care Team Providers Care Manager Entry Name Role Phone BRITTANYBryanna MELISSA Unavailable [phone] Lucio Pandey Unavailable Unavailable REASON FOR VISIT The patient has been seen in the past for limb-length inequality (left is shorter than right). She has gotten some relief by using heel lifts inside her shoes. She still has unsteady gait, and is unsure if it the limb length or the bunion on her right foot., The bunion on the right foot is painful and rubs against shoes. She has tried wider shoes like New Balance but the bunion is affecting her walking. She also notes that the right 2nd and 3rd toes rub against each other. The 2nd toe draws up and the 3rd toe curls down, Lastly, her great toenails are thick and discolored. She had her right great toenail removed elsewhere and it has issues. Her left toenail is also thick and discolored Medications Medication SIG (Take, Route, Frequency, Duration) Notes Start Date End Date Status Ciclopirox 8 % Solution 1 application Externally to toenail Once a day.; Duration: 30 days Remove medication weekly with rubbing alcohol. one bottle, 6.6mL or similar. 02/02/2025 07/31/2025 Active Encounters Encounter Location Date Provider Diagnosis [facility] [address] [place], [place] [id number] 02/02/2025 MELISSA GRANADOS Hallux valgus (acquired), right foot M20.11 ; Other hammer toe(s) (acquired), right foot M20.41 ; Unequal limb length (acquired), left tibia M21.762 ; Tinea unguium B35.1 and Pain in right foot M79.671 Assessments Encounter Date Diagnosis (ICD Code) Assessment Notes Treatment Notes Treatment Clinical Notes Section Notes 02/02/2025 Hallux valgus (acquired), right foot (ICD-10 - M20.11) Bunion: Discussed various treatments with the patient regarding hallux abducto valgus deformity. Discussed conservative care consisting of padding, wider shoes, anti-inflammatorie s, and orthotics. Discussed surgical treatment options and answered all questions about the intra-operative and post-operative treatment course. Bunion Surgical Consent Surgical Consent The patient understands there are no guarantees. There is a chance of: 1. Infection 2. Failure or rejection of implant 3. Overcorrection 4. Undercorrection 5. Non resolution of the problem 6. Transfer lesions to adjacent metatarsals 7. Return of the problem 8. Numbness 9. Anesthetic reaction 10. Healing problems or blood clot 11. Additional or revisional surgery may be required if complications occur The patient had no further question and has agreed to undergo surgical correction of the admitting diagnosis. Patient has signed the written consent form at this time. Isidro Bunionectomy with hardware, right foot. 02/02/2025 Other hammer toe(s) (acquired), right foot (ICD-10 - M20.41) Hammertoe Deformity: Discussed various treatments for hammer toes with the patient . Discussed conservative care consisting of padding, wider shoes, anti-inflammatorie s, and orthotics. Discussed surgical treatment options and answered all questions about the intra-operative and post-operative treatment course. Hammertoe Surgical Consult: Surgical Consent The patient understands there are no guarantees. There is a chance of: 1. Infection 2. Failure or rejection of implant 3. Overcorrection 4. Undercorrection 5. Non resolution of the problem 6. Return of the problem 7. Numbness 8. Anesthetic reaction 9. Healing problems or blood clot 10. Additional or revisional surgery may be required if complications occur The patient had no further question and has agreed to undergo surgical correction of the admitting diagnosis. Patient has signed the written consent form at this time. Proposed procedure: Extensor Tenotomy and Capsulotomy 2nd digit right foot; Flexor tenotomy 3rd digit right foot 02/02/2025 Unequal limb length (acquired), left tibia (ICD-10 - M21.762) Continue heel lifts. I did recommend orthotics with heel lift built in to it. Patient wishes to continue with heel lifts at this time 02/02/2025 Tinea unguium (ICD-10 - B35.1) FUNGAL TOENAILS: Discussed various treatment options for fungal toenails including debridement, topical antifungals, oral antifungals, toenail avulsion, or toenail matrixectomy. 02/02/2025 Pain in right foot (ICD-10 - M79.671) Plan Of Treatment Medication Medication Name Sig Start Date Stop Date Notes Ciclopirox 8 % Solution 1 application Externally to toenail Once a day.; Duration: 30 days 02/02/2025 07/31/2025 one bottle, 6.6mL or similar. Treatment Notes Assessment Notes Hallux valgus (acquired), right foot Bunion: Discussed various treatments with the patient regarding hallux abducto valgus deformity. Discussed conservative care consisting of padding, wider shoes, anti-inflammatories, and orthotics. Discussed surgical treatment options and answered all questions about the intra-operative and post-operative treatment course. Bunion Surgical Consent Surgical Consent The patient understands there are no guarantees. There is a chance of: 1. Infection 2. Failure or rejection of implant 3. Overcorrection 4. Undercorrection 5. Non resolution of the problem 6. Transfer lesions to adjacent metatarsals 7. Return of the problem 8. Numbness 9. Anesthetic reaction 10. Healing problems or blood clot 11. Additional or revisional surgery may be required if complications occur The patient had no further question and has agreed to undergo surgical correction of the admitting diagnosis. Patient has signed the written consent form at this time. Isidro Bunionectomy with hardware, right foot. Other hammer toe(s) (acquire d), right foot Hammertoe Deformity: Discussed various treatments for hammer toes with the patient . Discussed conservative care consisting of padding, wider shoes, anti-inflammatories, and orthotics. Discussed surgical treatment options and answered all questions about the intra-operative and post-operative treatment course. Hammertoe Surgical Consult: Surgical Consent The patient understands there are no guarantees. There is a chance of: 1. Infection 2. Failure or rejection of implant 3. Overcorrection 4. Undercorrection 5. Non resolution of the problem 6. Return of the problem 7. Numbness 8. Anesthetic reaction 9. Healing problems or blood clot 10. Additional or revisional surgery may be required if complications occur The patient had no further question and has agreed to undergo surgical correction of the admitting diagnosis. Patient has signed the written consent form at this time. Proposed procedure: Extensor Tenotomy and Capsulotomy 2nd digit right foot; Flexor tenotomy 3rd digit right foot Unequal limb length (acquire d), left tibia Continue heel lifts. I did recommend orthotics with heel lift built in to it. Patient wishes to continue with heel lifts at this time Tinea unguium FUNGAL TOENAILS: Dis cussed various treatment options for fungal toenails including debridement, topical antifungals, oral antifungals, toenail avulsion, or toenail matrixectomy. Next Appt Details Follow Up: prn, Reason: History and Physical Notes * HPI (History of Present Illness) Category Sub-Category Detail Notes Category Not es HPI New Complaint Established tana ent presents with a new complaint., Patient complains of an issue to right bunion pain. Patient states that her left leg is longer than her right and wants to check today that it is still true. , MA: [facility] Examination Category Sub-Category Detail Notes Category Not es Dermatologic Skin findings: Skin is warm, dr y, supple with no breaks in the skin Nail pathology: Nails 1 bilateral ar e elongated, thick, discolored, and dystrophic with subungual debris. They are painful to palpation Neurologic Gross sensation Gross sensation is intact to light touch Vascular Dorsalis pedis pulse: 2/4, bilateral Edema: No edema, bilateral Capillary refill: less than 3 seconds Posterior tibial pulse: 2/4, bilateral Musculoskeletal Muscle Strength Muscle strength is 5/5 in regards to dorsiflexion, plantarflexion, inversion, and eversion in bilateral lower extremities. The left leg is 1cm shorter than the right Hammertoes The right 2nd digit is dorsally contracted. The deformity is flexible and reducible. The right 3rd digit has plantarflexion contracture. This is flexible and reducible Hallux Abducto Valgus Laterally deviated hallux with medial prominence of the 1st metatarsal head right foot Constitutional Constitutional The patient is a wake, alert, well developed, well groomed and well nourished Radiographs Right Foot Xrays reveal an increased 1st IM angle, lateral deviation of the hallux, lateral displacement of the sesamoids and an enlarged medial prominence Xray Order Test Requested: 3 Vi ews Weightbearing (AP, LAT, Oblique) Foot, right Progress Notes * Marie ACEVEDOeDOB: (69 yo F)Acc No.[id number]:02/02/2025 Patient: Marie Cornelius Provider: Arlen Granados DPM :1955 A ge:69 Y S ex:Female Date:02/02/2025 Address:[address], [place], [phone] Subjective: * Chief Complaints: * T he patient has been seen in the past for limb-length inequality (left is shorter than right). She has gotten some relief by using heel lifts inside her shoes. She still has unsteady gait, and is unsure if it the limb length or the bunion on her right foot.The bunion on the right foot is painful and rubs against shoes. She has tried wider shoes like New Balance but the bunion is affecting her walking. She also notes that the right 2nd and 3rd toes rub against each other. The 2nd toe draws up and the 3rd toe curls downLastly, her great toenails are thick and discolored. She had her right great toenail removed elsewhere and it has issues. Her left toenail is also thick and discolored * HPI: H PI: New Complaint E stablished patient presents with a new complaint., Patient complains of an issue to right bunion pain. Patient states that her left leg is longer than her right and wants to check today that it is still true. , MA: miguel. * ROS: G eneral / Constitutional: Patient denies c hills, fever, weakness, night sweats. M usculoskeletal: Patient denies c hildhood foot problems, weakness. P atient complains of l imb length inequality, bunion, joint pain, hammertoe, claw toe. ? P eripheral Vascular: Patient denies u lceration of feet, cold extremities. ? S kin: Patient denies u lcerations, discoloration. P atient complains of f ungal toenails. N eurologic: Patient denies b alance difficulty, confusion, difficulty speaking, dizziness. * Medications: N one Objective: * Examination: C onstitutional: Constitutional T he patient is awake, alert, well developed, well groomed and well nourished. D ermatologic: Skin findings: S kin is warm, dry, supple with no breaks in the skin. Nail pathology: N ails 1 bilateral are elongated, thick, discolored, and dystrophic with subungual debris. They are painful to palpation. ? V ascular: Dorsalis pedis pulse: 2 /4, bilateral. Posterior tibial pulse: 2 /4, bilateral. Capillary refill: l ess than 3 seconds. Edema: N o edema, bilateral. N eurologic: Gross sensation G ross sensation is intact to light touch.? M usculoskeletal: Muscle Strength M uscle strength is 5/5 in regards to dorsiflexion, plantarflexion, inversion, and eversion in bilateral lower extremities. The left leg is 1cm shorter than the right. Hammertoes T he right 2nd digit is dorsally contracted.? The deformity is flexible and reducible. The right 3rd digit has plantarflexion contracture. This is flexible and reducible. Hallux Abducto Valgus L aterally deviated hallux with medial prominence of the 1st metatarsal head right foot. R adiographs: Right Foot X rays reveal an increased 1st IM angle, lateral deviation of the hallux, lateral displacement of the sesamoids and an enlarged medial prominence.? Xray Order T est Requested: 3 Views Weightbearing (AP, LAT, Oblique) Foot, right. Assessment: * Assessment: 1. H allux valgus (acquired), right foot - M20.11 (Primary) 2 . O ther hammer toe(s) (acquired), right foot - M20.41 3 . U nequal limb length (acquired), left tibia - M21.762 4 . T inea unguium - B35.1 5 . P ain in right foot - M79.671 Plan: * Treatment: 2. O ther hammer toe(s) (acquired), right foot Notes: Hammertoe Deformity: Discussed various treatments for hammer toes with the patient . Discussed conservative care consisting of padding, wider shoes, anti-inflammatories, and orthotics. Discussed surgical treatment options and answered all questions about the intra-operative and post-operative treatment course. H seble Surgical Consult: Surgical Consent The patient understands there are no guarantees. There is a chance of: 1. Infection 2. Failure or rejection of implant 3. Overcorrection 4. Undercorrection 5. Non resolution of the problem 6. Return of the problem 7. Numbness 8. Anesthetic reaction 9. Healing problems or blood clot 10. Additional or revisional surgery may be required if complications occur The patient had no further question and has agreed to undergo surgical correction of the admitting diagnosis. Patient has signed the written consent form at this time. Proposed procedure: Extensor Tenotomy and Capsulotomy 2nd digit right foot; Flexor tenotomy 3rd digit right foot 3. U nequal limb length (acquired), left tibia Notes: Continue heel lifts. I did recommend orthotics with heel lift built in to it. Patient wishes to continue with heel lifts at this time 4. T inea unguium Start Ciclopirox Solution, 8 %, 1 application, Externally to toenail, Once a day. Remove medication weekly with rubbing alcohol., 30 days, 1, Refills 5, Notes to Pharmacist: one bottle, 6.6mL or similar.. Notes: FUNGAL TOENAILS: Discussed various treatment options for fungal toenails including debridement, topical antifungals, oral antifungals, toenail avulsion, or toenail matrixectomy. * Procedure Codes: 7 3630 X-RAY EXAM OF FOOT, Modifiers: RT * Preventive Medicine: Screenings: F all risk screening F all Risk Assessment: N o falls in the past year. * Follow Up: p rn Billing Information: * Visit Code: 57801 Office Visit, Est Pt., Level 4. * Procedure Codes: 21810 X-RAY EXAM OF FOOT. Modifiers: RT * Electronic signature of MELISSA GRANADOS DPM on 05/27/2025 at 11:23 AM BUSINESS BANKING SALES ASSISTANT Sign off status: Pending * Provider: Arlen Granados DPM Date: 0 02/02/2025 Generated for Maurice mirza/Brian/Cheryl on: 1 07/28/2024 11:23 AM BUSINESS BANKING SALES ASSISTANT
--- NOTE | ~2025-05-27 | MM_ITS ---
EXAMINATION: MM screening konstantin BI w abhinav HISTORY: Screening TECHNIQUE: Craniocaudal and mediolateral oblique 3-D tomosynthesis images were obtained and synthetic 2-D images were generated. CAD analysis was submitted and interpreted. COMPARISON: Comparison to multiple prior studies sequentially, with oldest reviewed study dated 10/19/2017. BREAST PARENCHYMAL COMPOSITION: Not dense: There are scattered areas of fibroglandular density. FINDINGS: There is no evidence of suspicious mass, calcification, or architectural distortion to suggest malignancy in either breast. There has been no suspicious interval change. IMPRESSION: 1. No mammographic evidence of malignancy. 2. Recommend routine screening mammography in one year. BI-RADS Category 1: Negative Reviewed, dictated and finalized at location I. NCE BUSINESS MANAGER
--- OUTSIDE RECORDS SUMMARY | 2025-05-27 11:23 | XMS_ITS | Patient Health Record ---
Author Organization [facility] Address [address] [place], [place] [id number] Care Team Providers Care Supervisor Sewing Room Name Role Phone DARWIN MELISSA Unavailable [phone] Lucio Pandey Unavailable Unavailable Allergies No Known Allergies Reason For Referral No Information Medications Medication SIG (Take, Route, Frequency, Duration) Notes Start Date End Date Status Ciclopirox 8 % Solution 1 application Externally to toenail Once a day.; Duration: 30 days Remove medication weekly with rubbing alcohol. one bottle, 6.6mL or similar. 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 ; Tinea unguium B35.1 and Pain in right foot M79.671 [facility] [address] [place], [place] [id number] 05/11/2025 MELISSA GRANADOS Assessments Encounter Date Diagnosis (ICD Code) Assessment [...] foot (ICD-10 - M79.671) Plan Of Treatment No Information Insurance Providers Payer Name Payer Address Payer Phone Subscriber Number Group Number Insured Name Patient Relationship to Insured Coverage Start Date Coverage End Date Medicare Part B [place] [address] [place] [phone] [id number] Marie Dowell Self - patient is the insured [facility] ([facility]) ATTN CLAIMS [address] [place] [address] [id number] Marie Dowell Self - patient is the insured Medical (General) History Medical History History ICD Code artificial joint Blood transfusion Arthritis Sleep apnea Back Trouble varicose veins Heart Disease
--- OUTSIDE RECORDS SUMMARY | 2025-05-27 11:23 | XMS_ITS | Clinical Summary ---
Author Organization [facility] Address [facility] [place] [address] Care Team Providers Care Furniture Removalist'S Assistant Name Role Phone Lucio Pandey DO Primary Care Provider [phone] Allergies No known active allergies Medications ferrous [...] length and ablation as means for her mcc rhythm management. I will have her referred [...] drink = 0.6 oz pure alcohol) Drinks [facility] NoWait everyday Humiliation, Afraid, Rape, and Kick questionnair [...] place to sleep or slept in a residential (including now)? No 12/08/2022 Comments No Sex [...] CDT Office Visit [facility] [place], [place] [id number] Jurgen Ochoa MD [facility] [address] [place], [place] [id number] Health Maintenance Due Date Last Done Comments [...] perform ADLs independently Lifestyle No Blair Benjamin, front end loader driver - family caregiver with be involved in care transitions and discharge planning Lifestyle No Hayde Lobo, INSURANCE AGENCY SALES MANAGERreservoir engineering consultant Devices Implanted Type Area Cement Mixer Device Identifier Shelf Expiration Date Model / Serial / Lot Closure Device- [id number] Implanted:Qty : 1 on 08/22/2022 by Jose Manuel Quintero MD Closure Device Left: [employer] 05/09/2025 [id number] / / [id number] Alfredo Left Femur-[place] 4 Screws Procedures Procedure Name Priority Date/Time Associated Diagnosis Comments COLONOSCOPY Routine 12/11/2022 7:09 AM CDT OCCULT BLOOD, FECES STAT 12/10/2022 1 :06 PM CDT from Last 3 Months or Most Recently Relevant to Health Maintenance Results * OCCULT BLOOD, FECES (12/10/2022 1:06 PM CDT) OCCULT BLOOD FECAL POSITIVE 12/10/2022 1:40 PM CDT [facility] STOOL SPECIMEN / Unknown 12/10/2022 1:06 PM CDT Sabino SEQUEIRA BODY FLUIDS AND STOOLS VIANCA CARRILLO Final Result [facility] [address] [place] [address], from Last 3 Months or Most Recently Relevant to Health Maintenance Insurance MEDICARE [facility] MEDICARE [facility] Advance Directives * Full Code (Latest Code Status on File) Date Activated Date Inactivated Comments 12/08/2022 4:30 PM 12/11/2022 8:56 PM * Full Code Date Activated Date Inactivated Comments 09/08/2022 4:10 PM 09/09/2022 5:54 PM Care Teams Furniture Removalist'S Assistant Relationship Specialty Start Date End Date Lucio Pandey DO [address] [place] [address] PCP - General INTERNAL MEDICINE 12/06/19
--- OUTSIDE RECORDS SUMMARY | 2025-05-27 11:23 | XMS_ITS | Encounter Summary ---
Author Organization [facility] Address [address] [place] [address] Care Team Providers Care Parts Chaser Name Role Phone Lucio Pandey DO Primary Care Provider [phone] Encounter Details Date Type Department Care Team (Late Contact Info) Description 07/06/2020 Abstract [facility] [address] [place] [address] Darren Jacinto MA Social History Tobacco Use Types Packs/Day Years Used Date Smoking Tobacco: Never Smokeless Tobacco: Never Alcohol Use Standard Drinks/Week Comments Yes 0 (1 standard drink = 0.6 oz pure alcohol) Drinks [facility] whiskey everyday Comments No Sex [...] COVID-19? No / Unsure 07/05/2020 1:24 PM ACCIDENT INVESTIGATOR documented as of this encounter Plan of Treatment Upcoming Encounters Date Type Department Care Team (Late Contact Info) Description 09/22/2025 11:00 AM CDT Office Visit [facility] [place] [address] Jurgen Ochoa MD [facility] [address] [place] [address] documented as of this encounter Procedures Procedure [...] VITAMIN B-12 (05/28/2020) VITAMIN B12 S/P/B [phone] 05/28/2020 us Doc [facility] Abstract LABORATORY Final [...] on filedocumented in this encounter Care Teams Parts Chaser Relationship Specialty Start Date End Date Lucio Pandey DO [address] [facility] [address] [place] [address] PCP - General INTERNAL MEDICINE 12/06/19 documented as of this encounter
--- OUTSIDE RECORDS SUMMARY | 2025-05-27 11:24 | XMS_ITS | Clinical Summary ---
Author Organization [facility] Address [address] [facility] [place] [address] Care Team Providers Care Janitor Caretaker Name Role Phone Lucio Pandey DO Primary Care Provider Source Comments [facility],non-owned Affiliates and Associated Physician Practices is amultiple site organization consisting of ambulatory clinics and hospital sitesin [place], [place], [place] and [place]. This disclosure is being madepursuant to the Care Everywhere program and may not contain all information available regarding this patient. Last updated 18.[facility] Allergies Active Allergy Reactions Criticality Noted Date [...] Description 04/20/2025 11:30 AM CDT Procedure visit [facility] - [facility] [address] [facility] [place] [address] Maxi Blake MD Alcoholic fatty liver 04/20/2025 [...] Procedure Name Priority Date/Time Associated Diagnosis Comments LA LIVER ELASTOGRAPHY Routine 04/20/2025 12:40 PM CDT Alcoholic fatty liver from Last 3 Months Results * LA LIVER ELASTOGRAPHY (04/20/2025 12:40 PM CDT) Narrative [...] of liver-related events. J Hepatol (2021) 76: 0050-5135. Maricruz PJ, Brian M, Cecily M, et al. Accuracy of FibroScan controlled attenuation parameter and liver stiffness measurement in assessing steatosis and fibrosis in patients with nonalcoholic fatty liver disease. Gastroenterology 2019;156:9108-6423. Theodora PUENTES, Nancy R, Van Natta ML, [...] at-risk nonalcoholic steatohepatitis (LOTT) in a [place] cohort and comparison to other non-invasive algorithms. PLoS ONE (2021) 17: [id number]. Ling NICHOLAS, Justine Linda, Chapin JOHNSON, et al. Enhanced diagnosis of advanced fibrosis and cirrhosis in individuals with NAFLD using FibroScan-based Agile scores. J Hepatol (2022) 78: 247-259. Ebony et al. Vibration-controlled transient elastography scores to predict liver-related events in steatotic liver disease. BARRY (2023) 331: 2290-2759 Fibroscan LSM can also be used with laboratory parameters without formulas to assess prognosis. According to the Baveno-VII criteria (Topete, 202), Fibroscan LSM <=15 kPa plus a platelet count of >=056d945/L rules out clinically significant portal hypertension (sensitivity [...] FIB-4 score (Vaibhav et al. Hepatology Communications 2019;3:3335-5424) or NAFLD Fibrosis score (Connors et al. Clinical Gastroenterology and Hepatology 2019;17:3889-1031 using routine clinical data. Notes: 1. Fibroscan [...] additional interpretive data was last updated 06/27/24.) [email or web address] Maxi Linda MD PROCEDURE/MINOR TODD RGICAL ORDERABLES Final Result from Last 3 Months Insurance ANTHEM ANTHEM Member Subscriber Plan / Payer (Ef fective 2009-Present) Name:Stanislavkarmalissa Marie Relation to Subscriber:Spouse Name:TALIB ACEVEDO Date of :1954 (Home) Address: [address] [place] [address] Payer ID:[id number] (NAIC) Type:PPO Address: [address] [place] [id number] MEDICARE Care Teams Janitor Caretaker Relationship Specialty Start Date End Date Lucio Pandey DO PCP - General Internal Medicine 05/08/19
--- OUTSIDE RECORDS SUMMARY | 2025-05-27 11:24 | XMS_ITS | Clinical Summary ---
Author Organization [facility] Address [address] [place] [address] Care Team Providers Care Professor Of Sociology Name Role Phone Lucio Pandey DO Primary [...] 10 mg by mouth daily. 03/08/2024 Active [id number]-MIN ORAL Take by mouth. Active Active Problems [...] st Contact Info) Description 06/11/2025 11:00 AM BRANCH ASSOCIATE TELLER Office Visit [facility] Oncology and Hematology - [place] [address] [facility] [address] [place] [address] Cullen Narvaez MD [address] [facility] [address] [place] [address] Health Maintenance Due Date Last [...] MEDICARE PART A AND B Care Teams Professor Of Sociology Relationship Specialty Start Date End Date Lucio Pandey DO [address] [address] PCP - General Internal Medicine 10/14/18
--- OUTSIDE RECORDS SUMMARY | 2025-05-27 11:24 | XMS_ITS | Encounter Summary ---
Author Organization [facility] Address [address] [facility] [place] [address] Care Team Providers Care Hazardous Waste Technician Name Role Phone Lucio Pandey DO Primary Care Provider [phone] Encounter Details Date Type Department Care Team (Late st Contact Info) Description 07/25/2019 Lab Requisition [facility] Care Pathology Lab [address] [place] [address] Marcellus Gardner MD [address] [address] Social History Tobacco Use Types [...] CYTOMETRY BONE MARROW Routine 07/25/2019 10:23 AM [place] documented in this encounter Results * FLOW CYTOMETRY BONE MARROW (07/25/2019 10:23 AM [place]) Case Report Flow Cytometry Case: [id number] Authorizing Provider: Marcellus Gardner MD Collected: 07/25/2019 10:23 AM Ordering Location: [facility] Care Pathology Lab Received: 07/25/2019 01:46 PM Pathologist: Lacey Domingo MD Specimen: Bone Marrow 07/25/2019 4:22 PM [facility] Final Diagnosis Bone marrow, flow cytometric immunophenotypic analysis: - No evidence of non-Hodgkin lymphoma or high-grade myeloid neoplasm. - See interpretation. 07/25/2019 4:22 PM [facility] at [address] [place] Flow Cytometry Interpretation The bone marrow specimen [...] the flow cytometry specimen is reviewed for water quality specialist purposes. The bone marrow aspirate specimen shows no evidence of involvement by a non-Hodgkin lymphoma or a high-grade myeloid neoplasm. Correlation with clinical findings, the concurrent bone marrow core biopsy, and relevant cytogenetic/molecu lar studies is required. KR/MM 07/25/2019 4:22 PM [facility] Flow Cytometry Results Differential Result Comment Flow Cell Count /uL 49,800 Total Viability % 95.0 Lymphocytes % 26 Dim CD45 Region % 12 Monocytes % 13 Granulocytes % 37 07/25/2019 4:22 PM [facility] Reason for test Macrocytic anemia 07/25/2019 4:22 PM [facility] Client Specimen ID # [id number] 07/25/2019 4:22 PM [facility] Number of markers 10 were performed. A-2 Flow CD10 A-3 Flow CD13 A-5 Flow CD20 A-1 Flow CD5 A-4 Flow CD19 A-6 Flow CD33 A-7 Flow CD34 A-8 Flow CD45 A-9 Fortuna+CD19+ A-10 Lambda+CD19+ 07/25/2019 4:22 PM [facility] Disclaimer Test performed at [facility], [address] [place] [address], [address]. *The established laboratory minimum viability is 70%. [...] high complexity clinical testing. 07/25/2019 4:22 PM [place] [facility] Embedded Images 0 4:22 PM [place] [facility] Pathology/Cytolo gy BONE MARROW SPECIMEN / Unknown 07/25/2019 10:23 AM [place] 07/25/2019 1:46 PM [place] Marcellus Gardner MD LAB - PATHOLOGY/CYTOLOGY ORDER ERIK Final Result Performing Organization Address City/State/[facility] Co de Phone Number [facility] [address] [phone] documented in this encounter Visit Diagnoses Not on filedocumented in this encounter Care Teams Hazardous Waste Technician Relationship Specialty Start Date End Date Lucio Pandey DO PCP - General Internal Medicine 05/08/19 documented as of this encounter
--- OUTSIDE RECORDS SUMMARY | 2025-05-27 11:24 | XMS_ITS | Encounter Summary ---
Author Organization [facility] Address [address] [place] [address] Care Team Providers Care Credit Report Checker Name Role Phone Lucio Pandey DO Primary Care Provider Encounter Details Date Type Department Care Team (Late st Contact Info) Description 07/29/2019 Lab Requisition [facility] [place] [address] Gale Reyes MD [address] [place] [address] Social History Tobacco Use Types Packs/Day Years [...] MARROW BIOPSY (STL) Routine 07/25/2019 8:00 AM FACTORY SUPERINTENDENT documented in this encounter Results * BONE MARROW BIOPSY (STL) (07/25/2019 8:00 AM FACTORY SUPERINTENDENT) Case Report Bone Marrow Patholog y Report Case: [id number] Authorizing Provider: Gale Reyes MD Collected: 07/25/2019 08:00 AM Ordering Location: [facility] Received: 07/29/2019 06:53 AM Pathologist: Lacey Domingo MD Specimens: A) - Bone Marrow Core, AB20-6 B) - Bone Marrow Clot, AB20-6 C) - Blood Peripheral, AB20-6 D) - Bone Marrow Aspirate, AB20-6 07/29/2019 12:00 PM [facility] Final Diagnosis Bone marrow, aspirate, clot section, and core biopsy: - Hypercellular marrow with maturing trilineage hematopoiesis, mild megakaryocytic hyperplasia and dyserythropoiesis. - Rare ring sideroblasts identified. - No evidence of lymphoma or high-grade myeloid neoplasm. - See description. Peripheral blood smear: - Macrocytic anemia. - Thrombocytosis. - See description. 07/29/2019 12:00 PM [facility] at 1200 FACTORY SUPERINTENDENT AP Comment Overall, the bone marrow is [...] studies is required. KR/MM 07/29/2019 12:00 PM [facility] Peripheral Smear Description CBC Data: [...] increased. Platelet morphology: normal. 07/29/2019 12:00 PM [facility] Bone Marrow Aspirate Differential count [...] Control is appropriately reactive. 07/29/2019 12:00 PM [facility] Bone Marrow Core Biopsy and [...] (by special stain): adequate. 07/29/2019 12:00 PM [facility] Flow Cytometry Summary Concurrent flow cytometry ([id number]) shows no evidence of non-Hodgkin lymphoma or high-grade myeloid neoplasm. 07/29/2019 12:00 PM [facility] Clinical History Macrocytic anemia. 07/29/2019 12:00 PM [facility] Materials Received Received are 21 slides and 3 blocks labeled as AB20-6 along with the outside pathology report. [place] [address]. All materials are returned to the referring institution, along with a copy of our final report. 07/29/2019 12:00 PM [facility] Disclaimer The performance characteristics of all immunohistochemical and indirect immunofluorescence stains (if any) cited in this report were determined by the Histopathology Laboratory of [facility]. Some of these tests were developed [...] the attending (teaching) pathologist. 07/29/2019 12:00 PM FACTORY SUPERINTENDENT [facility] Embedded Images 07/29/2019 12:00 PM [facility] Pathology/Cytology SPECIMEN FROM BONE MARROW OBTAINED BY ASPIRATION / Unknown 07/25/2019 8:00 AM FACTORY SUPERINTENDENT 07/29/2019 6:53 AM FACTORY SUPERINTENDENT Miscellaneous samples (specimen) BONE MARROW CLOT SPECIMEN / Unknown 07/25/2019 8:00 AM FACTORY SUPERINTENDENT 07/29/2019 6:53 AM FACTORY SUPERINTENDENT Miscellaneous samples (specimen) PERIPHERAL BLOOD / Unknown 07/25/2019 8:00 AM FACTORY SUPERINTENDENT 07/29/2019 6:53 AM FACTORY SUPERINTENDENT Miscellaneous samples (specimen) SPECIMEN FROM BONE MARROW OBTAINED BY ASPIRATION / Unknown 07/25/2019 8:00 AM FACTORY SUPERINTENDENT 07/29/2019 6:53 AM FACTORY SUPERINTENDENT us Gale Reyes MD LAB - PATHOLOGY/CYTOLOGY ORDERAB LES Final Result [facility] [address] [phone] documented in this encounter Visit Diagnoses Not on filedocumented in this encounter Care Teams Credit Report Checker Relationship Specialty Start Date End Date Lucio Pandey DO PCP - General Internal Medicine 05/08/19 documented as of this encounter
== END 2025-05-27 10:09 | disposition home or self-care (01) ==
LOC: ANHFOHIMG 10:10
PROVIDERS: PCP Internal Medicine; Visit Provider Internal Medicine
DX: Z12.31 Encounter for screening mammogram for malignant neoplasm of breast (principal)
CPT/HCPCS: 77063; 77067

== ENCOUNTER 2025-06-08 10:13 | Outpatient (CLI) | payer MEDICARE, BC, SELFPAY ==
[2025-06-08 10:40] LABS: Hematocrit 43.0 % (37.0-47.0); Hemoglobin 13.3 g/dL (12.0-15.0); Mean Corpuscular HGB Conc 30.9 g/dl (32-36); Mean Corpuscular Hemoglobin 28.2 pg (26-34); Mean Corpuscular Volume 91.3 fl (80-100); Platelet Count Result 220 k/mm3 (150-375); Red Blood Count 4.71 M/mm3 (4.2-5.4); White Blood Count 5.8 K/mm3 (4.5-10.0)
[2025-06-08 16:29] LABS: Iron 49 ug/dL (37-170)
[2025-06-08 16:33] LABS: Alanine Aminotransferase 32 U/L (6-35); Albumin Level 4.4 g/dL (3.5-5.1); Alkaline Phosphatase 80 U/L (38-126); Anion Gap 3 mmol/L (4-12); Aspartate Amino Transferase 70 U/L (14-36); Bilirubin,Total 0.7 mg/dL (0.2-1.3); Blood Urea Nitrogen 25 mg/dL (7-17); Calcium 10.0 mg/dL (8.4-10.2); Carbon Dioxide 30 mmol/L (22-30); Chloride 104 mmol/L (98-107); Estimated Glomerular Filt Rate 57; Glucose 81 mg/dL (65-110); Potassium 4.5 mmol/L (3.4-5.0); Sodium 137 mmol/L (137-145); Total Protein 7.3 g/dL (6.3-8.2)
[2025-06-08 16:38] LABS: Percent Iron Saturation 13 % (20-50)
[2025-06-08 17:10] LABS: Ferritin 25.80 ng/mL (11.1-264)
[2025-06-08 17:45] LABS: Vitamin B12 916.0 pg/mL (239-931)
== END 2025-06-08 10:14 | disposition home or self-care (01) ==
LOC: ANHLAB 10:15
PROVIDERS: PCP Internal Medicine; Visit Provider Internal Medicine Hematology & Oncology
DX: D64.9 Anemia, unspecified (principal)
CPT/HCPCS: 36415; 80053; 82607; 82728; 82746; 83540; 83550; 85027